=== PATIENT | female | born 1955 | race Caucasian/White ===

== ENCOUNTER 2017-06-26 21:16 | Emergency (ER) | payer OTHER ==
[2017-06-26 21:46] LABS: Bilirubin Negative (Negative); Blood, Urine Small (Negative); Glucose, Urine (Dipstick) 250 mg/dL (Negative); Ketone, Urine Negative (Negative); Nitrite Negative (Negative); Protein, Urine (Dipstick) 300 mg/dL (Neg-Trace); Urobilinogen 0.2 mg/dL (0.2-1.0)
[2017-06-26 21:48] LABS: Bacteria/HPF None Seen HPF (None Seen); Hyaline Casts/LPF 0-3 HYALINE CAST LPF (0-3 Hyaline); Squamous Epithelial 0-3 HPF (0-3); WBC/HPF 0-3 HPF (0-3)
[2017-06-26 21:54] LABS: #Basophils 0.1 thou/uL (0.0-0.2); #Eosinphils 0.3 thou/uL (0.0-0.7); #Lymphocytes 2.2 thou/uL (1.20-3.40); #Monocytes 0.4 thou/uL (0.11-0.59); %Basophils 1.2 % (0.0-1.0); %Eosinophils 4.3 % (0.0-10.0); %Lymphocytes 31.3 % (21.0-51.0); %Monocytes 6.3 % (0.0-10.0); Hematocrit 30.6 % (36.0-47.0); Mean Platelet Volume 7.1 fL (7.4-10.4); Red Blood Cell (RBC) Count 3.44 mill/uL (4.20-5.40); White Blood Cell (WBC) Count 7.1 thou/uL (4.8-10.8)
[2017-06-26 22:21] LABS: ALT (SGPT) 10 U/L (8-55); AST (SGOT) 11 U/L (5-34); Alkaline Phosphatase 77 U/L (40-150); Anion Gap 12 mmol/L (10-20); BUN (Urea Nitrogen) 55 mg/dL (9.8-20.1); Bilirubin, Total Less than 0.2 mg/dL (0.2-1.2); Calc. Creatinine Clearance 0 mL/min (70-130); Calcium 8.4 mg/dL (7.8-10.44); Carbon Dioxide 20 mmol/L (23-31); Chloride 111 mmol/L (98-107); Estimated GFR-MDRD 25; Globulin 3.3 g/dL (2.4-3.5); Lipase 57 U/L (8-78); Protein, Total 5.7 g/dL (6.0-8.3)
--- NOTE | 2017-06-26 23:12 | RAD ---
PORTABLE CHEST ONE VIEW: 06/26/17 at 10:29 p.m. HISTORY: Right lower abdominal pain, bilateral lower extremity redness, swelling and history of cellulitis. COMPARISON: Comparison made with exam of 04/18/17. The heart size is normal. The lungs are well expanded without focal areas of consolidation, pneumoth orax or pleural effusions. Postop changes in the right humerus are again seen. IMPRESSION: No acute process. POS: [facility]
== END 2017-06-27 01:04 | disposition home or self-care (01) ==
LOC: ERS 21:16
DX: I13.0 Hypertensive heart and chronic kidney disease with heart failure and stage 1 through stage 4 chronic kidney disease, or unspecified chronic kidney disease (principal); E11.22 Type 2 diabetes mellitus with diabetic chronic kidney disease; N18.2 Chronic kidney disease, stage 2 (mild); I50.9 Heart failure, unspecified; E78.5 Hyperlipidemia, unspecified; Z79.4 Long term (current) use of insulin
CPT/HCPCS: 36415; 71010; 80053; 81003; 81015; 83690; 83880; 85025; 93005

== ENCOUNTER 2017-07-24 18:11 | Inpatient (IN) | payer OTHER ==
[2017-07-24] MEDS ORDERED: hydrALAZINE 20 MG/ML VIAL ONE ×2 (19:05→22:21)
[2017-07-24] MEDS ORDERED: methylPREDNISolone Sod Succ/PF 125 MG/2 ML VIAL ONE (19:05)
[2017-07-24] MEDS ORDERED: Water For Inject, Bacteriostat 30 ML ONE (19:06)
[2017-07-24] MEDS ORDERED: Piperacillin/Tazobactam 3.375 GM in Sodium Chloride 0.9% 100 ML IVPB ONE (19:15)
--- NOTE | 2017-07-24 19:22 | RAD ---
CHEST ONE VIEW 07/24/17 HISTORY: Chest pain. COMPARISON: 07/13/17 FINDINGS: The cardiac silhouette is magnified by projection. Pulmonary vasculature is unremarkable. Mild atelec tasis is evident at each lung base. There is no lobar consolidation or evidence of pneumothorax. Card iac monitor leads overlie the chest. IMPRESSION: Chronic type findings are stable. No active cardiopulmonary abnormalties are demonstrated. POS: [facility]
[2017-07-24 20:00] LABS: Bilirubin Negative (Negative); Blood, Urine Moderate (Negative); Glucose, Urine (Dipstick) >=1000 mg/dL (Negative); Ketone, Urine Negative (Negative); Nitrite Negative (Negative); Protein, Urine (Dipstick) > or equal to 300 mg/dL (Neg-Trace); Urobilinogen 0.2 mg/dL (0.2-1.0)
[2017-07-24 20:02] LABS: Bacteria/HPF None Seen HPF (None Seen); WBC/HPF 0-3 HPF (0-3)
[2017-07-24 20:12] LABS: #Basophils 0.1 thou/uL (0.0-0.2); #Eosinphils 0.2 thou/uL (0.0-0.7); #Lymphocytes 2.8 thou/uL (1.20-3.40); #Monocytes 0.5 thou/uL (0.11-0.59); #Neutrophils 10.5 thou/uL (1.40-6.50); %Basophils 0.6 % (0.0-1.0); %Eosinophils 1.3 % (0.0-10.0); %Monocytes 3.7 % (0.0-10.0); Hematocrit 30.1 % (36.0-47.0); Mean Platelet Volume 6.8 fL (7.4-10.4); Red Blood Cell (RBC) Count 3.33 mill/uL (4.20-5.40); White Blood Cell (WBC) Count 14.1 thou/uL (4.8-10.8)
[2017-07-24 20:13] LABS: Hyaline Casts/LPF 0-3 HYALINE CAST LPF (0-3 Hyaline)
[2017-07-24 20:28] LABS: Lactic Acid - Sepsis 0.9 mmol/L (0.5-2.2)
[2017-07-24 20:31] LABS: ALT (SGPT) 8 U/L (8-55); AST (SGOT) 11 U/L (5-34); Alkaline Phosphatase 94 U/L (40-150); Anion Gap 15 mmol/L (10-20); BUN (Urea Nitrogen) 35 mg/dL (9.8-20.1); Bilirubin, Total Less than 0.2 mg/dL (0.2-1.2); CK (CPK) 113 U/L (29-168); Calc. Creatinine Clearance 0 mL/min (70-130); Calcium 8.3 mg/dL (7.8-10.44); Carbon Dioxide 18 mmol/L (23-31); Chloride 109 mmol/L (98-107); Estimated GFR-MDRD 19; Globulin 3.3 g/dL (2.4-3.5); Lipase Less than 4 U/L (8-78); Protein, Total 5.7 g/dL (6.0-8.3)
[2017-07-24 20:45] LABS: Troponin I 0.019 ng/mL (< 0.028)
--- NOTE | 2017-07-24 23:38 | PDOC.EVN ---
Event Note - Event Note Event Note: Patient seen and examined. dictation note to follow
[2017-07-24 23:46] LABS: Troponin I 0.022 ng/mL (< 0.028)
[2017-07-25] MEDS ORDERED: Sodium Chloride 0.65% Nasal 44 ML BOT EA NARE PRN (00:03)
[2017-07-25] MEDS ORDERED: Ondansetron HCl/PF 4 MG/2 ML Vial IVP PRN (00:03)
[2017-07-25] MEDS ORDERED: Labetalol HCl 100 MG/20 ML VIAL SLOW IVP PRN (00:03)
[2017-07-25] MEDS ORDERED: Mag-Al 1200 mg/1200 mg/30 ML UDCUP PO PRN (00:03)
[2017-07-25] MEDS ORDERED: Loperamide HCl 2 MG CAP PO PRN (00:03)
[2017-07-25] MEDS ORDERED: cloNIDine 0.1 MG TAB PO PRN (00:03)
[2017-07-25] MEDS ORDERED: Benzonatate 100 MG CAP PO PRN (00:03)
[2017-07-25] MEDS ORDERED: Zolpidem Tartrate 5 MG TAB PO PRN (00:03)
[2017-07-25] MEDS ORDERED: Diabetic Tussin 200 MG/10 ML UDCUP PO PRN (00:03)
[2017-07-25] MEDS ORDERED: Milk Of Magnesia 30 ML UDCUP PO PRN (00:03)
[2017-07-25] MEDS ORDERED: hydrALAZINE 20 MG/ML VIAL SLOW IVP PRN (00:03)
[2017-07-25] MEDS ORDERED: Artificial Tears 18 DROP/0.9 ML EA EYE PRN (00:03)
[2017-07-25] MEDS ORDERED: Dextrose 5% in Water 1,000 ML IV PRN (00:03)
[2017-07-25] MEDS ORDERED: Loratadine 10 MG TAB PO PRN (00:03)
[2017-07-25] MEDS ORDERED: HumaLOG 300 UNITS/3 ML VIAL SC PRN (00:03)
[2017-07-25] MEDS ORDERED: Eucerin (Mineral Oil/Petrolatum,White) 30 gm Jar TOP PRN (00:03)
[2017-07-25] MEDS ORDERED: Acetaminophen 325 MG TAB PO PRN (00:03)
[2017-07-25] MEDS ORDERED: Ondansetron ODT 4 MG TAB PO PRN (00:03)
[2017-07-25] MEDS ORDERED: Senokot 8.6 MG TAB PO PRN (00:03)
[2017-07-25] MEDS ORDERED: Chloraseptic Spray 180 ml Bottle PO PRN (00:03)
[2017-07-25] MEDS: cefTRIAXone\\ROCEPHIN 1 GM in Syringe 10 ML IVPB SCH (00:30)
[2017-07-25] MEDS: Levofloxacin/D5W 250 MG in Premix Bag 1 BAG IVPB SCH (00:30)
--- NOTE | 2017-07-25 01:02 | HP ---
PRIMARY CARE PHYSICIAN: [facility]. DATE OF SERVICE: 07/24/2017 REASON FOR ADMISSION: Generalized weakness, hypertensive urgency, leukocytosis. HISTORY OF PRESENT ILLNESS: A 61-year-old female who has underlying history of hypertension, diabetes type 2, diabetic nephropathy, and chronic kidney disease stage 4, who came to emergency room with complaint of generalized weakness. Patient was feeling low grade fever at home. She was having headache, body ache , myalgia, cough, sore throat, chest congestion. She was also having difficulty controlling blood pressure at home. She denies any associated nausea , vomiting, diarrhea. She was not feeling good overall and she was getting overall weak and that is why family member brought her to the emergency room. She denies any cough productive of yellowish sputum. She has only a dry cough. She denies any hemoptysis. She denies any shortness of breath. She denies any urinary tract infection symptoms. She denies any constipation, diarrhea, melena, or hematochezia. She denies any lower extremity edema. Family member reports that her edema was worse before, but now improved. When the patient presented to emergency room, she was hypertensive. She was having low grade fever. Her blood pressure on admission 222/107. Patient was given antihypertensive medication apparently in the emergency room after that blood pressure improved. ALLERGIES: VANCOMYCIN. CURRENT HOME MEDICATIONS: Amlodipine 10 mg p.o. daily, aspirin 81 mg daily, Lipitor 40 mg p.o. daily, Coreg 6.25 mg p.o. b.i.d., ferrous sulfate 325 mg p.o. t.i.d., Lasix 40 mg p.o. b.i.d., gabapentin 200 mg p.o. at bedtime, War 1 or 2 tablets q.4 hourly p.r.n., Levemir insulin 21 units subcu a.m. and 15 units at bedtime, Zaroxolyn 5 mg p.o. every other day, ropinirole 1 mg p.o. at bedtime p.r.n. REVIEW OF SYSTEMS: The following complete review of systems was negative, unless otherwise mentioned in the HPI or below: CONSTITUTIONAL: Weight loss or gain, ability to conduct usual activities. SKIN: Rash, itching. EYES: Double vision, pain. ENT/MOUTH: Nose bleeding, neck stiffness, pain, tenderness. CARDIOVASCULAR: Palpitations, dyspnea on exertion, orthopnea. RESPIRATORY: Shortness of breath, wheezing, cough, hemoptysis, fever or night sweats. GASTROINTESTINAL: Poor appetite, abdominal pain, heartburn, nausea, vomiting, constipation, or diarrhea. GENITOURINARY: Urgency, frequency, dysuria, nocturia. MUSCULOSKELETAL: Pain, swelling. NEUROLOGIC/PSYCHIATRIC: Anxiety, depression. ALLERGY/IMMUNOLOGIC: Skin rash, bleeding tendency. Please see my HPI for pertinent positive and negative. All other review of systems reviewed and negative except as mentioned in the HPI. PAST MEDICAL HISTORY: Diabetes type 2, insulin-dependent diabetic, nephropathy , chronic kidney disease stage 4, hypertension, dyslipidemia, restless leg syndrome, morbid obesity, anemia, normocytic, normochromic, moderate tricuspid regurgitation, chronic diastolic heart failure. PAST SURGICAL HISTORY: Right shoulder surgery, left total knee arthroplasty, ovarian cyst removal. PAST PSYCHIATRIC HISTORY: Reviewed and negative. SOCIAL HISTORY: Patient lives at home with her daughter. No history of tobacco , alcohol or illicit drug abuse. FAMILY HISTORY: Diabetes runs among several family members. Mom from lung cancer by age of 75. Father from mesothelioma by age of 62. EMERGENCY ROOM COURSE: Patient is given Zosyn 3.375 mg. Patient is given hydralazine, Solu-Medrol 125 mg, DuoNeb therapy. PHYSICAL EXAMINATION: VITAL SIGNS: On arrival, blood pressure 222/107, pulse 92, respiratory rate 20 , temperature 99.7, saturation 97% on room air, weight 81.1 kilograms. GENERAL: Patient is currently alert, awake, no obvious acute distress. HEENT: Normocephalic, atraumatic. Eyes: Pupils round, reactive to light. Extraocular muscles intact. ENT: Oropharynx within normal limits. Moist mucous membranes. No oral lesions. No pharyngeal erythema, no exudate. No lymph nodes. NECK: Supple. Range of motion is normal. No meningeal signs of irritation. LUNGS: Few end expiratory wheezing heard. No rales. CARDIAC: S1, S2 regular. No murmur, no gallop, no rub. ABDOMEN: Obesity. Bowel sounds present, nontender, nondistended. No organomegaly, no mass, no suprapubic tenderness. BACK: Unremarkable, no CVA tenderness. EXTREMITIES: Upper extremity: Passive movement of all joints are normal. Lower extremities: Bilateral lower extremity pitting edema noted. Chronic venous stasis changes. SKIN: No skin rash. HEMATOLOGICAL: No lymphadenopathy. PSYCHIATRIC: Normal affect. NEUROLOGIC: Nonfocal examination. SIGNIFICANT LABORATORY DATA: EKG based on my review normal sinus rhythm, nonspecific ST-T changes. Chest x-ray based on my review, chronic changes without any acute process. CBC: WBC 14.1, hemoglobin 10.0, platelets 378. BMP : Sodium 137, potassium 4.5, chloride 109, carbon dioxide 18, BUN 35, creatinine 2.58, glucose 270, calcium 8.3. Lactic acid 0.9, AST 11, ALT 8, alkaline phosphatase 94, albumin 2.4, lipase less than 4, CK-MB 4.9, troponin I 0.019. CK 113. Urinalysis; glucosuria and proteinuria. ASSESSMENT AND PLAN: IMPRESSION: 1. Generalized weakness and suspecting viral prodrome syndrome. Patient will need consultation with walking program while in hospital. We will check influenza screen, which is negative. 2. Acute bronchitis. Patient has cough, sore throat, upper respiratory infection, most likely patient has underlying viral bronchitis underlying bacterial infection cannot be entirely excluded. 3. Hypertensive urgency, currently improved after parenteral IV hydralazine in the emergency room. We will monitor on telemetry floor. We will rule out acute coronary syndrome and do serial cardiac enzymes. We will continue with nitro patch q.8 hourly and will resume patient's blood pressure medication while in hospital. 4. Leukocytosis, unclear etiology, for suspecting from viral infection, underlying bacterial infection cannot be entirely excluded. We will send urine culture and will follow up on blood culture result and will continue with Rocephin 1 gram q.24 hours. We will also add levofloxacin 250 mg IV daily. We will repeat CBC tomorrow. 5. Chronic kidney disease stage 4. Monitor renal function. Avoid nephrotoxic agents. 6. Diabetes type 2, uncontrolled. We will resume patient's home medication and we will titrate insulin dose while in hospital and we will also consider Humalog insulin as per sliding scale. 7. Anemia, normocytic, normochromic. Continue ferrous sulfate 325 mg p.o. daily. 8. Dyslipidemia. Continue patient's home dose of Lipitor. Moderate tricuspid regurgitation based on previous echocardiography. 9. Edema, bilateral lower extremities, likely due to hypoalbuminemia secondary to diabetic nephropathy. We will monitor deep venous thrombosis prophylaxis, heparin 5000 units subcu twice daily. 10. Gastrointestinal prophylaxis. Pepcid 20 mg p.o. daily. CODE STATUS: The patient is FULL CODE. Patient's daughter is surrogate decision maker. Her phone number is [phone]. Plan of care discussed with the family member at bedside in the emergency room. [facility]
[2017-07-25 01:34] VITALS: BMI 36.9
[2017-07-25 01:59] LABS: #Lymphocytes 0.4 thou/uL (1.20-3.40); %Basophils 0.2 % (0.0-1.0); %Eosinophils 0.2 % (0.0-10.0); %Lymphocytes 3.1 % (21.0-51.0); %Monocytes 0.3 % (0.0-10.0); Hematocrit 25.8 % (36.0-47.0); Mean Platelet Volume 7.1 fL (7.4-10.4); Red Blood Cell (RBC) Count 2.84 mill/uL (4.20-5.40); White Blood Cell (WBC) Count 12.5 thou/uL (4.8-10.8)
[2017-07-25 02:23] LABS: Troponin I 0.036 ng/mL (< 0.028)
[2017-07-25 02:29] LABS: ALT (SGPT) 8 U/L (8-55); AST (SGOT) 11 U/L (5-34); Alkaline Phosphatase 86 U/L (40-150); Anion Gap 15 mmol/L (10-20); BUN (Urea Nitrogen) 41 mg/dL (9.8-20.1); Bilirubin, Total Less than 0.2 mg/dL (0.2-1.2); Calc. Creatinine Clearance 28 mL/min (70-130); Calcium 7.8 mg/dL (7.8-10.44); Carbon Dioxide 15 mmol/L (23-31); Chloride 107 mmol/L (98-107); Estimated GFR-MDRD 17; Globulin 3.1 g/dL (2.4-3.5); Protein, Total 5.2 g/dL (6.0-8.3)
[2017-07-25] MEDS ORDERED: rOPINIRole HCl 1 MG TAB PO PRN (02:50)
[2017-07-25] MEDS ORDERED: Insulin Detemir 100 UNITS/ML 15 UNITS in Pre-Filled Syringe 1 EACH SC SCH (03:00)
[2017-07-25] MEDS: HumaLOG 300 UNITS/3 ML VIAL SC PRN ×3 (03:01→09:50)
[2017-07-25] MEDS: Nitroglycerin 2% Ointment 1 INCH/1 GM Packet TOP SCH ×3 (03:05→21:43)
[2017-07-25] MEDS ORDERED: Insulin Detemir 100 UNITS/ML 21 UNITS in Pre-Filled Syringe 1 EACH SC SCH (09:00)
[2017-07-25] MEDS: Carvedilol 6.25 MG TAB PO SCH ×2 (09:17→20:39)
[2017-07-25] MEDS: Atorvastatin Calcium 40 MG TAB PO SCH (09:17)
[2017-07-25] MEDS: Amlodipine 10 MG TAB PO SCH (09:17)
[2017-07-25] MEDS: Aspirin 81 mg Enteric Coated Tablet PO SCH (09:17)
[2017-07-25] MEDS: Heparin 5,000 UNITS/ML VIAL SC SCH ×2 (09:18→20:39)
[2017-07-25] MEDS: Famotidine 20 MG TAB PO SCH (09:18)
--- NOTE | 2017-07-25 11:10 | PDOC.PN ---
- Subjective Encounter Start Date: 07/25/17 Encounter Start Time: 07:30 Subjective: no sob/chest pain - Objective Resuscitation Status: Resuscitation Status FULL:Full Resuscitation MAR Reviewed: Yes Vital Signs & Weight: Vital Signs (12 hours) Temp Pulse Resp BP BP Pulse Ox 07/25/17 09:17 97 147/74 H 07/25/17 07:43 98.6 F 97 16 07/25/17 07:41 99 F 90 22 H 147/74 H 97 07/25/17 05:05 97 16 127/65 95 07/25/17 03:05 98.6 F 107 H 18 187/76 H 95 07/24/17 23:40 98.6 F 111 H 20 140/82 96 Weight Weight 183 lb 1.6 oz I&O: 07/24/17 07/25/17 07/26/17 06:59 06:59 06:59 Intake Total 1130 Output Total 600 Balance 530 Result Diagrams: 07/25/17 01:52 07/25/17 01:52 Additional Labs: Accuchecks 07/25/17 07/25/17 07/25/17 08:38 05:57 02:46 POC Glucose 415 H 475 H 504 H Phys Exam - Physical Examination HEENT: PERRLA, moist MMs Neck: no JVD, supple Respiratory: no wheezing, no rales Cardiovascular: RRR, no significant murmur Gastrointestinal: soft, no distention, positive bowel sounds Musculoskeletal: pulses present, edema present Neurological: non-focal, moves all 4 limbs Psychiatric: A&O x 3 Dx/Plan (1) DM type 2 (diabetes mellitus, type 2) Status: Chronic Qualifiers: Diabetes mellitus complication status: with hyperglycemia 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 use: with dedicated intermodal truck driver use Qualified Code(s): E11.65 - Type 2 diabetes mellitus with hyperglycemia; Z79.4 - rat exterminator (current) use of insulin; Z79.4 - rat exterminator (current) use of insulin; Z79.4 - intermediate ( current) use of insulin; Z79.4 - rat exterminator (current) use of insulin Comment: serum sugar of 500mg on arrival (2) HTN (hypertension) Code(s): I10 - ESSENTIAL (PRIMARY) HYPERTENSION Status: Chronic Comment: uncontrolled (3) Hypoalbuminemia Code(s): E88.09 - OTH DISORDERS OF PLASMA-PROTEIN METABOLISM, NEC Status: Chronic Comment: due to renal wasting from ckd and diabetic nephropathy (4) ROD (acute kidney injury) Code(s): N17.9 - ACUTE KIDNEY FAILURE, UNSPECIFIED Status: Acute Comment: Watch renal function, avoid nephrotoxic meds (5) CKD (chronic kidney disease) stage 3, GFR 30-59 ml/min Status: Chronic (6) Chronic anemia Code(s): D64.9 - ANEMIA, UNSPECIFIED Status: Chronic Comment: sec to ckd (7) Dyslipidemia Code(s): E78.5 - HYPERLIPIDEMIA, UNSPECIFIED Status: Chronic (8) URI (upper respiratory infection) Code(s): J06.9 - ACUTE UPPER RESPIRATORY INFECTION, UNSPECIFIED Status: Acute Qualifiers: URI type: unspecified URI Qualified Code(s): J06.9 - Acute upper respiratory infection, unspecified - Plan has multiple med issues with uncontrolled dm and htn -: has met acidosis with ckd and edema -: bnp levels, likely vol overloaded -: d/w -: is on levaq and ceftriaxone, will need atleast another 30hrs to get her dm * . and htn under control. Please note pt has rod with ckd and will have unpredictable renal clearance of meds as well. Has outpt appt with set up for friday. give 15 units of levemir one additional dose now. continue lasix iv. Mobilize in hallway as tolerated. Review of Systems - Medications/Allergies Allergies/Adverse Reactions: Allergies Allergy/AdvReac Type Severity Reaction Status Date / Time No Known Allergies Allergy Verified 07/25/17 00:19 Medications: Current Medications Acetaminophen (Tylenol) 650 mg PO Q4H PRN PRN Reason: Headache/Fever or Pain Hydrocodone Bitart/Acetaminophen ([place] 5/325) 1 tab PO Q4H PRN PRN Reason: Moderate Pain (4-6) Al Hydroxide/Mg Hydroxide (Maalox) 30 ml PO Q6H PRN PRN Reason: Heartburn or Indigestion Albuterol/Ipratropium (Duoneb) 3 ml NEB [id number] PRN PRN Reason: SOB &/or Wheezing Amlodipine Besylate (Norvasc) 10 mg PO DAILY [facility] Last Admin: 07/25/17 09:17 Dose: 10 mg Artificial Tears (Tears Naturale) 0 drop EA EYE PRN PRN PRN Reason: Dry Eyes Aspirin (Ecotrin) 81 mg PO DAILY [facility] Last Admin: 07/25/17 09:17 Dose: 81 mg Atorvastatin Calcium (Lipitor) 40 mg PO DAILY [facility] Last Admin: 07/25/17 09:17 Dose: 40 mg Benzonatate (Tessalon) 100 mg PO Q4H PRN PRN Reason: Cough Carvedilol (Coreg) 6.25 mg PO BID [facility] Last Admin: 07/25/17 09:17 Dose: 6.25 mg Clonidine (Catapres) 0.1 mg PO Q4H PRN PRN Reason: Systolic BP > 180 Last Admin: 07/25/17 03:03 Dose: 0.1 mg Dextrose/Water (Dextrose 50%) 25 gm SLOW IVP PRN PRN PRN Reason: Hypoglycemia Famotidine (Pepcid) 20 mg PO DAILY [facility] Last Admin: 07/25/17 09:18 Dose: 20 mg Gabapentin (Neurontin) 200 mg PO [facility] Glucagon (Glucagon) 1 mg IM PRN PRN PRN Reason: Hypoglycemia Guaifenesin (Robitussin Sf) 200 mg PO Q4H PRN PRN Reason: Cough Heparin Sodium (Porcine) (Heparin) 5,000 units SC BID [facility] Last Admin: 07/25/17 09:18 Dose: 5,000 units Hydralazine HCl (Apresoline) 10 mg SLOW IVP Q4H PRN PRN Reason: Systolic BP > 180 Ceftriaxone Sodium 1 gm/ (Syringe) 10 mls @ 120 mls/hr IVPB Q24HR [facility] Last Admin: 07/25/17 00:30 Dose: 10 mls Dextrose/Water (D5w) 1,000 mls @ 0 mls/hr IV .Q0M PRN; As Directed PRN Reason: Hypoglycemia Levofloxacin 250 mg/ Device 50 mls @ 100 mls/hr IVPB Q24HR [facility] Last Admin: 07/25/17 00:30 Dose: 50 mls Insulin Detemir 15 units/ (Miscellaneous Medication) 0.15 mls @ 0 mls/hr SC HS [facility] Insulin Detemir 21 units/ (Miscellaneous Medication) 0.21 mls @ 0 mls/hr SC QAM [facility] Last Admin: 07/25/17 09:18 Dose: 0.21 mls Insulin Detemir 15 units/ (Miscellaneous Medication) 0.15 mls @ 0 mls/hr SC NOW [facility] Stop: 07/25/17 13:15 Influenza Virus Vaccine (Fluzone Quad [id number] Syringe) 0.5 ml IM .ONCE ONE Stop: 07/26/17 09:01 Insulin Human Lispro (Humalog) 0 units SC .MODERATE SLIDING SC PRN PRN Reason: Moderate Correctional Scale Last Admin: 07/25/17 09:50 Dose: 10 unit Insulin Human Lispro (Humalog) 0 units SC .BEDTIME SLIDING SC PRN PRN Reason: Bedtime Correctional Scale Labetalol HCl (Normodyne) 20 mg SLOW IVP Q4H PRN PRN Reason: Systolic BP > 180 Loperamide HCl (Imodium) 2 mg PO PRN PRN PRN Reason: Diarrhea/Loose Stools Loratadine (Claritin) 10 mg PO DAILYPRN PRN PRN Reason: Sinus Symptoms Magnesium Hydroxide (Milk Of Magnesium) 30 ml PO DAILYPRN PRN PRN Reason: Constipation Mineral Oil/White Petrolatum (Eucerin Cream) 0 gm TOP BIDPRN PRN PRN Reason: Dry Skin Nitroglycerin (Nitro-Bid 2% Ointment) 0.5 inch TOP Q8HR [facility] Last Admin: 07/25/17 03:05 Dose: 0.5 inch Ondansetron HCl (Zofran Odt) 4 mg PO Q6H PRN PRN Reason: Nausea/Vomiting Ondansetron HCl (Zofran) 4 mg IVP Q6H PRN PRN Reason: Nausea/Vomiting Phenol (Chloraseptic [place] 180 Ml Bot) 0 ml PO PRN PRN PRN Reason: Sore Throat Ropinirole HCl (Requip) 1 mg PO HSPRN PRN PRN Reason: Restlessness Senna (Senokot) 2 tab PO HSPRN PRN PRN Reason: Constipation Sodium Chloride ([place] Nasal [place] 0.65%) 0 ml EA NARE QIDPRN PRN PRN Reason: Nasal Congestion Sodium Chloride (Flush - Normal Saline) 10 ml IVF Q12HR [facility] Last Admin: 07/25/17 09:19 Dose: 10 ml Sodium Chloride (Flush - Normal Saline) 10 ml IVF PRN PRN PRN Reason: Saline Flush Last Admin: 07/25/17 00:30 Dose: 10 ml Zolpidem Tartrate (Ambien) 5 mg PO HSPRN PRN PRN Reason: Insomnia
[2017-07-25] MEDS ORDERED: Insulin Detemir 100 UNITS/ML 15 UNITS in Pre-Filled Syringe SC SCH (11:15)
[2017-07-25] MEDS: Furosemide 100 MG/10 ML VIAL SLOW IVP SCH (14:25)
[2017-07-25] MEDS: Gabapentin 100 MG CAP PO SCH (20:38)
[2017-07-25] MEDS: Insulin Detemir 100 UNITS/ML 15 UNITS in Pre-Filled Syringe 1 EACH SC SCH ×2 (20:41→21:07)
[2017-07-25] MEDS: Dextrose 50% Abboject 50 ML SYRINGE SLOW IVP PRN (21:01)
[2017-07-26] MEDS: Dextrose 50% Abboject 50 ML SYRINGE SLOW IVP PRN (00:54)
[2017-07-26] MEDS: cefTRIAXone\\ROCEPHIN 1 GM in Syringe 10 ML IVPB SCH (00:58)
[2017-07-26] MEDS: Levofloxacin/D5W 250 MG in Premix Bag 1 BAG IVPB SCH (01:10)
[2017-07-26] MEDS: HYDROcodone/Acetaminophen 5/325 mg Tablet PO PRN ×3 (02:58→23:17)
[2017-07-26] MEDS: Furosemide 100 MG/10 ML VIAL SLOW IVP SCH ×2 (05:53→13:42)
[2017-07-26] MEDS: Nitroglycerin 2% Ointment 1 INCH/1 GM Packet TOP SCH ×3 (05:55→21:00)
[2017-07-26 07:50] LABS: #Eosinphils 0.2 thou/uL (0.0-0.7); #Monocytes 0.6 thou/uL (0.11-0.59); #Neutrophils 8.2 thou/uL (1.40-6.50); %Basophils 0.4 % (0.0-1.0); %Eosinophils 1.6 % (0.0-10.0); %Lymphocytes 9.7 % (21.0-51.0); %Monocytes 5.9 % (0.0-10.0); Hematocrit 29.1 % (36.0-47.0); Mean Platelet Volume 6.7 fL (7.4-10.4); Red Blood Cell (RBC) Count 3.22 mill/uL (4.20-5.40); White Blood Cell (WBC) Count 9.9 thou/uL (4.8-10.8)
[2017-07-26 08:17] LABS: Anion Gap 14 mmol/L (10-20); BUN (Urea Nitrogen) 49 mg/dL (9.8-20.1); Calc. Creatinine Clearance 28 mL/min (70-130); Calcium 8.2 mg/dL (7.8-10.44); Carbon Dioxide 20 mmol/L (23-31); Chloride 106 mmol/L (98-107); Estimated GFR-MDRD 18
[2017-07-26] MEDS ORDERED: FLU VACC QS2017-18 36 mo. & older 0.5 ML SYRINGE IM ONE (09:00)
[2017-07-26] MEDS: Aspirin 81 mg Enteric Coated Tablet PO SCH (09:29)
[2017-07-26] MEDS: Carvedilol 6.25 MG TAB PO SCH ×2 (09:29→20:58)
[2017-07-26] MEDS: Atorvastatin Calcium 40 MG TAB PO SCH (09:29)
[2017-07-26] MEDS: cloNIDine 0.1 MG TAB PO SCH ×2 (09:29→21:00)
[2017-07-26] MEDS: Famotidine 20 MG TAB PO SCH (09:29)
[2017-07-26] MEDS: Amlodipine 10 MG TAB PO SCH (09:29)
[2017-07-26] MEDS: hydrALAZINE 25 MG TAB PO SCH ×2 (09:30→20:59)
[2017-07-26] MEDS: Heparin 5,000 UNITS/ML VIAL SC SCH ×2 (09:30→20:59)
--- NOTE | 2017-07-26 11:52 | PDOC.PN ---
- Subjective Encounter Start Date: 07/26/17 Encounter Start Time: 07:15 Subjective: feels weak, no sob -: is trying to eat her breakfast - Objective Resuscitation Status: Resuscitation Status FULL:Full Resuscitation MAR Reviewed: Yes Vital Signs & Weight: Vital Signs (12 hours) Temp Pulse Resp BP BP Pulse Ox 07/26/17 09:30 87 07/26/17 09:29 97.8 F 87 18 192/84 H 95 07/26/17 09:24 97.8 F 87 18 192/84 H 95 07/26/17 04:00 98.3 F 83 18 166/71 H 97 07/26/17 01:08 82 28 H 172/77 H 95 Weight Weight 183 lb 1.6 oz I&O: 07/25/17 07/26/17 07/27/17 06:59 06:59 06:59 Intake Total 1130 840 Output Total 600 1725 Balance 530 -755 Result Diagrams: 07/26/17 07:40 07/26/17 07:40 Additional Labs: Accuchecks 07/26/17 07/26/17 07/26/17 11:11 06:19 04:26 POC Glucose 150 H 92 105 07/26/17 07/26/17 07/26/17 02:51 01:15 00:49 POC Glucose 104 136 H 56 L* 07/25/17 07/25/17 07/25/17 21:13 20:58 17:37 POC Glucose 145 H 49 L* 75 07/25/17 16:41 POC Glucose 61 L Phys Exam - Physical Examination HEENT: PERRLA, moist MMs Neck: no JVD, supple Respiratory: no wheezing, no rales Cardiovascular: RRR, no significant murmur Gastrointestinal: soft, non-tender, positive bowel sounds Musculoskeletal: pulses present, edema present Neurological: non-focal, moves all 4 limbs Psychiatric: A&O x 3 Dx/Plan (1) DM type 2 (diabetes mellitus, type 2) Status: Chronic Qualifiers: Diabetes mellitus complication status: with hyperglycemia 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 marine terminal insulin use: with laborer marine terminal use Qualified Code(s): E11.65 - Type 2 diabetes mellitus with hyperglycemia; Z79.4 - detention (current) use of insulin; Z79.4 - petroleum terminal plant operator (current) use of insulin; Z79.4 - petroleum terminal plant operator ( current) use of insulin; Z79.4 - petroleum terminal plant operator (current) use of insulin Comment: serum sugar of 500mg on arrival (2) HTN (hypertension) Code(s): I10 - ESSENTIAL (PRIMARY) HYPERTENSION Status: Chronic Comment: uncontrolled (3) Hypoalbuminemia Code(s): E88.09 - OTH DISORDERS OF PLASMA-PROTEIN METABOLISM, NEC Status: Chronic Comment: due to renal wasting from ckd and diabetic nephropathy (4) ROD (acute kidney injury) Code(s): N17.9 - ACUTE KIDNEY FAILURE, UNSPECIFIED Status: Acute Comment: Watch renal function, avoid nephrotoxic meds (5) CKD (chronic kidney disease) stage 3, GFR 30-59 ml/min Status: Chronic (6) Chronic anemia Code(s): D64.9 - ANEMIA, UNSPECIFIED Status: Chronic Comment: sec to ckd (7) Dyslipidemia Code(s): E78.5 - HYPERLIPIDEMIA, UNSPECIFIED Status: Chronic (8) URI (upper respiratory infection) Code(s): J06.9 - ACUTE UPPER RESPIRATORY INFECTION, UNSPECIFIED Status: Acute Qualifiers: URI type: unspecified URI Qualified Code(s): J06.9 - Acute upper respiratory infection, unspecified - Plan diabetes is labile, hold levemir for this am -: add clonidine and hydralazine -: to amb in room as tolerated -: continue lasix 80 iv q12h -: will dc antibiotics in am if stable * . Review of Systems - Medications/Allergies Allergies/Adverse Reactions: Allergies Allergy/AdvReac Type Severity Reaction Status Date / Time No Known Allergies Allergy Verified 07/25/17 00:19 Medications: Current Medications Acetaminophen (Tylenol) 650 mg PO Q4H PRN PRN Reason: Headache/Fever or Pain Hydrocodone Bitart/Acetaminophen ([place] 5/325) 1 tab PO Q4H PRN PRN Reason: Moderate Pain (4-6) Last Admin: 07/26/17 02:58 Dose: 1 tab Al Hydroxide/Mg Hydroxide (Maalox) 30 ml PO Q6H PRN PRN Reason: Heartburn or Indigestion Albuterol/Ipratropium (Duoneb) 3 ml NEB [id number] PRN PRN Reason: SOB &/or Wheezing Last Admin: 07/25/17 22:00 Dose: 3 ml Amlodipine Besylate (Norvasc) 10 mg PO DAILY [facility] Last Admin: 07/26/17 09:29 Dose: 10 mg Artificial Tears (Tears Naturale) 0 drop EA EYE PRN PRN PRN Reason: Dry Eyes Aspirin (Ecotrin) 81 mg PO DAILY [facility] Last Admin: 07/26/17 09:29 Dose: 81 mg Atorvastatin Calcium (Lipitor) 40 mg PO DAILY [facility] Last Admin: 07/26/17 09:29 Dose: 40 mg Benzonatate (Tessalon) 100 mg PO Q4H PRN PRN Reason: Cough Carvedilol (Coreg) 6.25 mg PO BID [facility] Last Admin: 07/26/17 09:29 Dose: 6.25 mg Clonidine (Catapres) 0.1 mg PO Q4H PRN PRN Reason: Systolic BP > 180 Last Admin: 07/25/17 03:03 Dose: 0.1 mg Clonidine (Catapres) 0.1 mg PO BID [facility] Last Admin: 07/26/17 09:29 Dose: 0.1 mg Dextrose/Water (Dextrose 50%) 25 gm SLOW IVP PRN PRN PRN Reason: Hypoglycemia Last Admin: 07/26/17 00:54 Dose: 25 gm Famotidine (Pepcid) 20 mg PO DAILY [facility] Last Admin: 07/26/17 09:29 Dose: 20 mg Furosemide (Lasix) 80 mg SLOW IVP 0600,1400 [facility] Last Admin: 07/26/17 05:53 Dose: 80 mg Gabapentin (Neurontin) 200 mg PO HS [facility] Last Admin: 07/25/17 20:38 Dose: 200 mg Glucagon (Glucagon) 1 mg IM PRN PRN PRN Reason: Hypoglycemia Guaifenesin (Robitussin Sf) 200 mg PO Q4H PRN PRN Reason: Cough Last Admin: 07/26/17 02:58 Dose: 200 mg Heparin Sodium (Porcine) (Heparin) 5,000 units SC BID [facility] Last Admin: 07/26/17 09:30 Dose: 5,000 units Hydralazine HCl (Apresoline) 10 mg SLOW IVP Q4H PRN PRN Reason: Systolic BP > 180 Hydralazine HCl (Apresoline) 25 mg PO BID [facility] Last Admin: 07/26/17 09:30 Dose: 25 mg Ceftriaxone Sodium 1 gm/ (Syringe) 10 mls @ 120 mls/hr IVPB Q24HR [facility] Last Admin: 07/26/17 00:58 Dose: 10 mls Dextrose/Water (D5w) 1,000 mls @ 0 mls/hr IV .Q0M PRN; As Directed PRN Reason: Hypoglycemia Levofloxacin 250 mg/ Device 50 mls @ 100 mls/hr IVPB Q24HR [facility] Last Admin: 07/26/17 01:10 Dose: 50 mls Insulin Detemir 15 units/ (Miscellaneous Medication) 0.15 mls @ 0 mls/hr SC HS [facility] Last Admin: 07/25/17 21:07 Dose: Not Given Insulin Human Lispro (Humalog) 0 units SC .MODERATE SLIDING SC PRN PRN Reason: Moderate Correctional Scale Last Admin: 07/25/17 09:50 Dose: 10 unit Insulin Human Lispro (Humalog) 0 units SC .BEDTIME SLIDING SC PRN PRN Reason: Bedtime Correctional Scale Labetalol HCl (Normodyne) 20 mg SLOW IVP Q4H PRN PRN Reason: Systolic BP > 180 Loperamide HCl (Imodium) 2 mg PO PRN PRN PRN Reason: Diarrhea/Loose Stools Loratadine (Claritin) 10 mg PO DAILYPRN PRN PRN Reason: Sinus Symptoms Magnesium Hydroxide (Milk Of Magnesium) 30 ml PO DAILYPRN PRN PRN Reason: Constipation Mineral Oil/White Petrolatum (Eucerin Cream) 0 gm TOP BIDPRN PRN PRN Reason: Dry Skin Nitroglycerin (Nitro-Bid 2% Ointment) 0.5 inch TOP Q8HR [facility] Last Admin: 07/26/17 05:55 Dose: 0.5 inch Ondansetron HCl (Zofran Odt) 4 mg PO Q6H PRN PRN Reason: Nausea/Vomiting Ondansetron HCl (Zofran) 4 mg IVP Q6H PRN PRN Reason: Nausea/Vomiting Phenol (Chloraseptic [place] 180 Ml Bot) 0 ml PO PRN PRN PRN Reason: Sore Throat Ropinirole HCl (Requip) 1 mg PO HSPRN PRN PRN Reason: Restlessness Senna (Senokot) 2 tab PO HSPRN PRN PRN Reason: Constipation Sodium Chloride ([place] Nasal [place] 0.65%) 0 ml EA NARE QIDPRN PRN PRN Reason: Nasal Congestion Sodium Chloride (Flush - Normal Saline) 10 ml IVF Q12HR [facility] Last Admin: 07/26/17 09:30 Dose: 10 ml Sodium Chloride (Flush - Normal Saline) 10 ml IVF PRN PRN PRN Reason: Saline Flush Last Admin: 07/26/17 05:56 Dose: 10 ml Zolpidem Tartrate (Ambien) 5 mg PO HSPRN PRN PRN Reason: Insomnia
--- NOTE | 2017-07-26 12:48 | CON ---
DATE OF CONSULTATION: 07/25/2017 CONSULTING PHYSICIAN: Dr. Maggy Ordaz. REASON FOR CONSULTATION: Acute kidney injury and edema. REASON FOR ADMISSION: Generalized weakness. HISTORY OF PRESENT ILLNESS: This is a 61-year-old white female with history of hypertension, type 2 diabetes, chronic kidney disease, came to the hospital with weakness and has been evaluated. She hylton s have chronic kidney disease stage 4. Her creatinine was found to be 2.81 and Nephrology is consult ed. The patient complains of lot of swelling. She is not having a regular followup for blood sugar and blood pressure was elevated. No fever or chills. No nausea, vomiting, no diarrhea. PAST MEDICAL HISTORY: Positive for diabetes, hypertension, chronic kidney disease, iron deficiency a nemia, chronic pain, edema, hyperlipidemia, chronic diastolic heart failure. PAST SURGICAL HISTORY: Right shoulder surgery, left total knee replacement, ovarian cyst removal. HOME MEDICATIONS: Amlodipine, aspirin, Lipitor, Coreg, ferrous sulfate, Lasix, gabapentin, [place], Le vemir, Zaroxolyn and ropinirole. ALLERGIES: To VANCOMYCIN. SOCIAL HISTORY: No smoking, alcohol or illicit drug abuse. FAMILY HISTORY: No history of any kidney disease. REVIEW OF SYSTEMS: The following complete review of systems was negative, unless otherwise mentioned in the HPI or below: Constitutional: Weight loss or gain, ability to conduct usual activities. Skin: Rash, itching. Eyes: Double vision, pain. ENT/Mouth: Nose bleeding, neck stiffness, pain, tenderness. Cardiovascular: Palpitations, dyspnea on exertion, orthopnea. Respiratory: Shortness of breath, wheezing, cough, hemoptysis, fever or night sweats. Gastrointestinal: Poor appetite, abdominal pain, heartburn, nausea, vomiting, constipation, or diarr hea. Genitourinary: Urgency, frequency, dysuria, nocturia. Musculoskeletal: Pain, swelling. Neurologic/Psychiatric: Anxiety, depression. Allergy/Immunologic: Skin rash, bleeding tendency. PHYSICAL EXAMINATION: GENERAL: This is an obese female in no apparent distress. VITAL SIGNS: Temperature 97.8, pulse 87, respiratory rate 18, blood pressure 192/84. HEENT: Atraumatic, normocephalic. Oral mucosa is moist. NECK: Supple, no masses. CARDIOVASCULAR: S1, S2. Rate and rhythm regular. RESPIRATORY: Clear. GASTROINTESTINAL: Abdomen is soft. MUSCULOSKELETAL: 2+ edema. DERMATOLOGIC: No skin rash. NEUROLOGIC: Alert and awake. PSYCHIATRIC: Mood and affect normal. LABORATORY DATA: Hemoglobin is 9.6, potassium is 4.5, BUN is 49, creatinine is 2.7. ASSESSMENT AND PLAN: 1. Acute kidney injury on chronic kidney stage IV. Renal function is elevated, but she does have ed danielito. Plan is to have Lasix today, start on Lasix 80 mg IV b.i.d.. We will monitor. 2. Anemia of chronic disease. We will check iron studies. 3. Proteinuria with diabetic nephropathy. 4. Hypertension. Titrate medication. We will add Lasix for edema. 5. Anemia, stable. 6. Obesity. Plan is to start on Lasix. Monitor renal function, avoid nephrotoxins, hold ELIJAH inhibitor at this po int and continue antibiotics. We will follow. Thank you for the consultation.
--- NOTE | 2017-07-26 13:04 | PRG ---
DATE OF SERVICE: 07/26/2017 SUBJECTIVE: Patient was seen and examined at bedside and overnight events noted. Patient denies any shortness of breath or chest pain or palpitation. No history of nausea or vomiting or diarrhea or fever or chills or cramps. OBJECTIVE: GENERAL: This is an obese female in no apparent distress. VITAL SIGNS: Temperature 98.1, pulse 80, respirations 16, blood pressure 178/81. HEENT: Atraumatic, normocephalic. Oral mucosa is moist. NECK: Supple. CARDIOVASCULAR: S1, S2 heard. Rate and rhythm regular. RESPIRATORY: Clear to auscultation. GASTROINTESTINAL: Abdomen is soft. MUSCULOSKELETAL: No tenderness, no edema. DERMATOLOGIC: No skin rash. NEUROLOGIC: Alert and awake and oriented x3. No focal neurologic deficits. Moving all the extremit ies. PSYCHIATRIC: Mood and affect normal. LABORATORY DATA: Potassium is 4.5, BUN is 49, creatinine is 2.7. ASSESSMENT AND PLAN: 1. Acute kidney injury on chronic kidney disease. Renal function is better with diuretics, continue on diuresis. 2. Proteinuria. 3. Diabetic nephropathy. 4. Hypertension. 5. Edema. 6. Obesity. Plan is to continue on diuretics and monitor renal function.
[2017-07-26] MEDS: HumaLOG 300 UNITS/3 ML VIAL SC PRN (17:28)
[2017-07-26] MEDS: Gabapentin 100 MG CAP PO SCH (20:59)
[2017-07-26] MEDS: Insulin Detemir 100 UNITS/ML 15 UNITS in Pre-Filled Syringe 1 EACH SC SCH (21:03)
[2017-07-27] MEDS: cefTRIAXone\\ROCEPHIN 1 GM in Syringe 10 ML IVPB SCH (00:34)
[2017-07-27] MEDS: Levofloxacin/D5W 250 MG in Premix Bag 1 BAG IVPB SCH (01:43)
[2017-07-27] MEDS: Furosemide 100 MG/10 ML VIAL SLOW IVP SCH (05:41)
[2017-07-27] MEDS: Nitroglycerin 2% Ointment 1 INCH/1 GM Packet TOP SCH (05:44)
[2017-07-27 05:48] LABS: Anion Gap 14 mmol/L (10-20); BUN (Urea Nitrogen) 53 mg/dL (9.8-20.1); Calc. Creatinine Clearance 27 mL/min (70-130); Calcium 7.5 mg/dL (7.8-10.44); Carbon Dioxide 19 mmol/L (23-31); Chloride 104 mmol/L (98-107); Estimated GFR-MDRD 16
[2017-07-27] MEDS: HYDROcodone/Acetaminophen 5/325 mg Tablet PO PRN (07:03)
[2017-07-27] MEDS: Amlodipine 10 MG TAB PO SCH (08:13)
[2017-07-27] MEDS: Aspirin 81 mg Enteric Coated Tablet PO SCH (08:14)
[2017-07-27] MEDS: Atorvastatin Calcium 40 MG TAB PO SCH (08:14)
[2017-07-27] MEDS: Carvedilol 6.25 MG TAB PO SCH (08:14)
[2017-07-27] MEDS: hydrALAZINE 25 MG TAB PO SCH (08:15)
[2017-07-27] MEDS: Famotidine 20 MG TAB PO SCH (08:15)
[2017-07-27] MEDS: Heparin 5,000 UNITS/ML VIAL SC SCH (08:15)
[2017-07-27] MEDS: cloNIDine 0.1 MG TAB PO SCH (08:15)
[2017-07-27] MEDS ORDERED: Furosemide 40 MG TAB PO SCH (09:00)
[2017-07-27] MEDS ORDERED: Cefdinir 300 MG CAP PO SCH (09:00)
[2017-07-27] MEDS: HumaLOG 300 UNITS/3 ML VIAL SC PRN (09:17)
--- NOTE | 2017-07-27 09:29 | PDOC.PN ---
- Subjective Encounter Start Date: 07/27/17 Encounter Start Time: 07:30 Subjective: feels better, wants to go home -: still has some dry coughing spells - Objective Resuscitation Status: Resuscitation Status FULL:Full Resuscitation MAR Reviewed: Yes Vital Signs & Weight: Vital Signs (12 hours) Temp Pulse Resp BP Pulse Ox 07/27/17 08:15 80 07/27/17 08:13 80 07/27/17 08:11 98.3 F 80 16 173/72 H 97 07/27/17 04:00 97.4 F L 76 20 133/64 96 07/27/17 00:00 98.5 F 70 20 130/60 96 Weight Weight 182 lb 12.8 oz I&O: 07/26/17 07/27/17 07/28/17 06:59 06:59 06:59 Intake Total 840 1160 Output Total 1725 1900 Balance -686 -360 Result Diagrams: 07/26/17 07:40 07/27/17 05:07 Additional Labs: Accuchecks 07/27/17 07/26/17 07/26/17 04:49 20:30 17:00 POC Glucose 230 H 226 H 222 H 07/26/17 11:11 POC Glucose 150 H Phys Exam - Physical Examination HEENT: PERRLA, sclera anicteric Neck: no JVD, supple Respiratory: no wheezing, no rales rhonchi+ Cardiovascular: RRR, no significant murmur Gastrointestinal: soft, non-tender, positive bowel sounds Musculoskeletal: pulses present, edema present Neurological: non-focal, moves all 4 limbs Psychiatric: A&O x 3 Dx/Plan (1) DM type 2 (diabetes mellitus, type 2) Status: Chronic Qualifiers: Diabetes mellitus complication status: with hyperglycemia Diabetes mellitus half-way insulin use: with half-way use Qualified Code(s): E11.65 - Type 2 diabetes mellitus with hyperglycemia; Z79.4 - nuclear monitoring technician (current) use of insulin; Z79.4 - nuclear monitoring technician (current) use of insulin; Z79.4 - nuclear monitoring technician ( current) use of insulin; Z79.4 - snf (current) use of insulin Comment: serum sugar of 500mg on arrival (2) HTN (hypertension) Code(s): I10 - ESSENTIAL (PRIMARY) HYPERTENSION Status: Chronic Qualifiers: Hypertension type: essential hypertension Qualified Code(s): I10 - Essential (primary) hypertension (3) Hypoalbuminemia Code(s): E88.09 - OTH DISORDERS OF PLASMA-PROTEIN METABOLISM, NEC Status: Chronic Comment: due to renal wasting from ckd and diabetic nephropathy (4) ROD (acute kidney injury) Code(s): N17.9 - ACUTE KIDNEY FAILURE, UNSPECIFIED Status: Acute Comment: Watch renal function, avoid nephrotoxic meds (5) CKD (chronic kidney disease) stage 3, GFR 30-59 ml/min Status: Chronic (6) Chronic anemia Code(s): D64.9 - ANEMIA, UNSPECIFIED Status: Chronic Comment: sec to ckd (7) Dyslipidemia Code(s): E78.5 - HYPERLIPIDEMIA, UNSPECIFIED Status: Chronic (8) COPD exacerbation Code(s): J44.1 - CHRONIC OBSTRUCTIVE PULMONARY DISEASE W (ACUTE) EXACERBATION Status: Acute - Plan counselled reg smoking cessation -: to f/u with PCP on friday -: january dc home -: has insulin at home, new meds faxed to her pharmacy * .
[2017-07-27 11:21] VITALS: BP 146/74; TEMP 97.4
--- NOTE | 2017-07-27 13:27 | PRG ---
DATE OF SERVICE: 07/27/2017 SUBJECTIVE: Patient was seen and examined at bedside and overnight events noted. Patient denies any shortness of breath or chest pain or palpitation. No history of nausea or vomiting or diarrhea or f ever or chills or cramps. OBJECTIVE: GENERAL: This is an obese female, in no apparent distress. VITAL SIGNS: Temperature 97.5, pulse 72, respirations 16, and blood pressure 146/74. HEENT: Atraumatic, normocephalic. Oral mucosa is moist. NECK: Supple. CARDIOVASCULAR: S1, S2 heard. Rate and rhythm regular. RESPIRATORY: Clear to auscultation. GASTROINTESTINAL: Abdomen is soft. MUSCULOSKELETAL: 1+ edema. DERMATOLOGIC: No skin rash. NEUROLOGIC: Alert and awake and oriented x3. No focal neurologic deficits. Moving all the extremit ies. PSYCHIATRIC: Mood and affect normal. LABORATORY DATA: Potassium is 4.6, BUN is 53 and creatinine is 2.9. ASSESSMENT AND PLAN: 1. Acute kidney injury on chronic kidney disease stage 4. Renal function continues to get worse. I advised to have tight glycemic control. Her blood has been chronically elevated and is not complian t with her diet. Family member was also available and they are wanting to take care to primary care physician for regular followup for her blood sugar. Family member reported that patient is noncompli ant with diet. 2. Hyponatremia, limit fluid intake. 3. Acidosis from chronic disease. 4. Hypercalcemia. 5. Anemia of chronic disease. 6. Edema. 7. Proteinuria. 8. Diabetic nephropathy. 9. Obesity. Overall, prognosis is poor. No acute indication for dialysis. The patient was advised to follow up with the clinic in 2 weeks with blood work, BMP done and we will follow. Avoid ELIJAH inhibitors at thi s point. Continue on Lasix as tolerated for edema. We will have close followup with a communications engineer as an outpatient. Patient and family is aware to follow up in 1-2 weeks. Thank you for the consultation again and we will follow up as outpatient.
--- NOTE | 2017-07-27 15:22 | DIS ---
DATE OF ADMISSION: 07/24/2017 DATE OF DISCHARGE: 07/27/2017 DISCHARGE DISPOSITION: To home. PRIMARY DISCHARGE DIAGNOSES: Hypertension and diabetes mellitus type 2. Both were uncontrolled with the initial serum sugars of 500 on arrival. Both are controlled at the time of discharge. Acute kidney injury on top of chronic kidney disease stage 3, hypoalbuminemia secondary to diabetic nephropathy and chronic anemia due to chronic kidney disease, dyslipidemia, acute chronic obstructive pulmonary disease exacerbation, resolving. PROCEDURES DONE DURING HOSPITALIZATION: Chest x-ray done on the day of admission showed chronic findings with no acute infiltrate. Had a white count of 14 on the day of admission with discharge numbers of 9. Discharge BUN and creatinine is 53 and 2.9. Serum sugar was 542 on the day of admission. Troponin I was indeterminate, peaking up to 0.03, albumin is 2.4. BNP was 621. Blood cultures x2, no growth. Influenza A and B antigens were negative. DISCHARGE MEDICATIONS: Albuterol inhaler q.6 hourly p.r.n., Norvasc 10 mg p.o. daily, aspirin 81 mg p.o. daily, Lipitor 40 mg p.o. daily, Coreg 6.25 mg p.o. twice daily, Omnicef 300 mg p.o. daily for another 4 days, clonidine 0.1 mg p.o. twice daily, ferrous sulfate 325 mg p.o. 3 times daily, Lasix 40 mg p.o. twice daily, gabapentin 200 mg p.o. at bedtime, hydralazine 25 mg p.o. twice daily, NPH insulin 21 units subcu q.a.m. and 15 units p.o. subcutaneously at bedtime, prednisone 5 mg p.o. daily for another 3 days and to discontinue for COPD flare-up, ropinirole 1 mg p.o. at bedtime. ALLERGIES: No known drug allergies. DISCHARGE PLAN: Patient to follow up with Dr. De Oliveira on the 07/30/2017 at 10: 00 a.m. She also needs follow up with Dr. Avalos in 1 week. BRIEF COURSE DURING HOSPITALIZATION: Patient initially got admitted on the with complaints of generalized weakness. She also had a cough with chest congestion and sore throat. The patient was an active smoker. She was diagnosed with COPD exacerbation along with hypertension and diabetes mellitus type 2, both uncontrolled. Her initial serum sugar was more than 500 mg. Patient was admitted to telemetry and has had close monitoring along with consultation with Dr. Avalos for Nephrology. The patient has a history of CKD stage 3-4 with anasarca and hypoalbuminemia due to diabetic nephropathy. In view of this, she has had gentle diuresis done. She has had some acute kidney injury on top of her chronic kidney disease. The patient's diabetes and hypertension are well controlled at the time of discharge. She is a new patient for Dr. Benitez De Oliveira and will be seeing him on the 07/30/2017. I have asked patient to check her fingerstick glucose, blood pressure, pulse, and record on a sheet of paper for a period of 10 days to follow up with primary care physician and Dr. Avalos. She was counseled with regards to smoking cessation, along with fluid restriction and dietary compliance. Please see a face to face documentation on [employer] for the day of discharge. ERICKSON
== END 2017-07-27 11:37 | disposition home or self-care (01) | DRG 683 ==
LOC: ERS 18:11 → 2SW 21:45 → OBSVTOIN 21:45 → 2NO 07-25 16:22
PROVIDERS: ADMIT Internal Medicine; ATTEND Internal Medicine
DX: N17.9 Acute kidney failure, unspecified (principal); I13.0 Hypertensive heart and chronic kidney disease with heart failure and stage 1 through stage 4 chronic kidney disease, or unspecified chronic kidney disease; I50.32 Chronic diastolic (congestive) heart failure; E87.2 Acidosis; J44.1 Chronic obstructive pulmonary disease with (acute) exacerbation; J44.0 Chronic obstructive pulmonary disease with (acute) lower respiratory infection; E87.1 Hypo-osmolality and hyponatremia; E11.21 Type 2 diabetes mellitus with diabetic nephropathy; I16.0 Hypertensive urgency; E11.22 Type 2 diabetes mellitus with diabetic chronic kidney disease; E11.65 Type 2 diabetes mellitus with hyperglycemia; F17.210 Nicotine dependence, cigarettes, uncomplicated; Z79.4 Long term (current) use of insulin; J20.9 Acute bronchitis, unspecified; D63.1 Anemia in chronic kidney disease; E78.5 Hyperlipidemia, unspecified; E88.09 Other disorders of plasma-protein metabolism, not elsewhere classified; Z68.36 Body mass index [BMI] 36.0-36.9, adult; E83.52 Hypercalcemia; Z88.1 Allergy status to other antibiotic agents; I34.0 Nonrheumatic mitral (valve) insufficiency; G25.81 Restless legs syndrome; E66.01 Morbid (severe) obesity due to excess calories; N18.3 Chronic kidney disease, stage 3 (moderate)
CPT/HCPCS: 36415; 36416; 71010; 80048; 80053; 81003; 81015; 82553; 83605; 83690; 83880; 84484; 85025; 87040; 87086; 90471; 90682; 93005; 94640; 96365; 96374; 96375; 96376; 99406; A4216; G0008; J0360; J0696; J1644; J1815; J1940; J1956; J2543; J2930; J7050; J7620; Q2036

== ENCOUNTER 2017-08-20 23:17 | Inpatient (IN) | payer OTHER ==
[2017-08-20 23:46] LABS: #Eosinphils 0.2 thou/uL (0.0-0.7); #Lymphocytes 1.4 thou/uL (1.20-3.40); #Monocytes 0.7 thou/uL (0.11-0.59); #Neutrophils 7.1 thou/uL (1.40-6.50); %Basophils 0.3 % (0.0-1.0); %Eosinophils 1.6 % (0.0-10.0); %Lymphocytes 14.8 % (21.0-51.0); Hematocrit 23.8 % (36.0-47.0); Mean Platelet Volume 6.8 fL (7.4-10.4); Red Blood Cell (RBC) Count 2.65 mill/uL (4.20-5.40); White Blood Cell (WBC) Count 9.3 thou/uL (4.8-10.8)
[2017-08-21 00:06] LABS: ALT (SGPT) 21 U/L (8-55); AST (SGOT) 34 U/L (5-34); Alkaline Phosphatase 106 U/L (40-150); Anion Gap 16 mmol/L (10-20); BUN (Urea Nitrogen) 88 mg/dL (9.8-20.1); Bilirubin, Total 0.2 mg/dL (0.2-1.2); Calc. Creatinine Clearance 0 mL/min (70-130); Calcium 8.4 mg/dL (7.8-10.44); Carbon Dioxide 17 mmol/L (23-31); Chloride 109 mmol/L (98-107); Estimated GFR-MDRD 11; Globulin 3.4 g/dL (2.4-3.5); Protein, Total 6.4 g/dL (6.0-8.3)
[2017-08-21 00:16] LABS: Troponin I 0.019 ng/mL (< 0.028)
[2017-08-21] MEDS ORDERED: Acetaminophen 325 MG TAB ONE (01:18)
[2017-08-21] MEDS ORDERED: Furosemide 40 MG/4 ML VIAL ONE (01:18)
[2017-08-21] MEDS ORDERED: Ondansetron ODT 4 MG TAB SL PRN (03:14)
[2017-08-21] MEDS ORDERED: Ondansetron HCl/PF 4 MG/2 ML Vial IVP PRN ×2 (03:14→03:31)
[2017-08-21] MEDS ORDERED: Acetaminophen 325 MG TAB PO PRN (03:14)
[2017-08-21 03:19] VITALS: BMI 41.4
[2017-08-21] MEDS ORDERED: hydrALAZINE 20 MG/ML VIAL SLOW IVP PRN (03:31)
[2017-08-21] MEDS ORDERED: Dextrose 5% in Water 1,000 ML IV PRN (03:31)
[2017-08-21] MEDS ORDERED: cloNIDine 0.1 MG TAB PO PRN (03:31)
[2017-08-21] MEDS ORDERED: Ondansetron ODT 4 MG TAB PO PRN (03:31)
[2017-08-21] MEDS ORDERED: rOPINIRole HCl 2 MG TAB PO PRN (04:00)
[2017-08-21] MEDS ORDERED: PROVENTIL INHALER 6.7 G (200 INHALATIONS) INH PRN (04:00)
--- NOTE | 2017-08-21 05:05 | HP ---
PRIMARY CARE PROVIDER: Dr. Benitez De Oliveira PRIMARY SURVEY OPERATIONS DIRECTOR: Dr. Avalos CHIEF COMPLAINT: General weakness and shortness of breath. HISTORY OF PRESENT ILLNESS: This is a 61-year-old female who presents to [facility] Emergency Department complaining of increasing fatigue, weakness, and near falling. The patient states her symptoms have progressed over the last 24-48 hours, most prominent on the day of admission 08/21/2017. The patient denies any specific fever, chills, increased cough, congestion . The patient denied any specific exposure history, travel or new medications. The patient does adm it to a history of chronic kidney disease followed by Dr. Avalos on an outpatient basis. The patien t has noted increasing swelling of her lower extremities beyond her baseline edema. The patient has a known history of diabetes mellitus x22 years with poor control. The patient was notably admitted t o [facility] on 07/24/2017 through 07/27/2017 for hyperglycemia as well as acu te kidney injury on chronic kidney disease stage 4. In the emergency department, the patient receive d Lasix 80 mg x1 dose in addition to Tylenol. The patient was transferred to the medical floor for f urther evaluation. PAST MEDICAL HISTORY: 1. Chronic kidney disease stage 4. 2. Diabetes mellitus type 2, insulin requiring, diagnosed x22 years. 3. Tobacco abuse. 4. Anemia secondary to chronic kidney disease. 5. Diabetic nephropathy. 6. Dyslipidemia. 7. Chronic obstructive pulmonary disease. PAST SURGICAL HISTORY: 1. Status post right shoulder repair. 2. Status post left total knee arthroplasty. 3. Status post ovarian cyst removal. CURRENT MEDICATIONS: 1. Albuterol HFA 2 puffs inhaled q.i.d. p.r.n. 2. Amlodipine 10 mg 1 tab p.o. daily. 3. Enteric coated aspirin 81 mg 1 tab p.o. daily. 4. Lipitor 40 mg 1 tab p.o. daily. 5. Coreg 6.25 mg p.o. b.i.d. 6. Clonidine 0.1 p.o. b.i.d. 7. Ferrous sulfate 324 mg 2 tabs p.o. q.a.m. 8. Lasix 40 mg 1 tab p.o. b.i.d. 9. Hydralazine 25 mg p.o. b.i.d. 10. NPH insulin, 15 units subcutaneously at bedtime and 21 units subcutaneously q.a.c. 11. Prednisone 5 mg p.o. daily. 12. Requip 1 mg p.o. at bedtime. ALLERGIES: VANCOMYCIN. FAMILY HISTORY: Diabetes mellitus in multiple family members. Mother from complications of carie g cancer at age 75. Father from complications of mesothelioma at the age of 62. SOCIAL HISTORY: The patient is . Resides in [place], [place]. Smokes up to a pack of cigaret javid daily. Ambulates with the use of a rolling walker. No alcohol or illicit drug use. REVIEW OF SYSTEMS: The following complete review of systems was negative, unless otherwise mentioned in the HPI or below: Constitutional: Weight loss or gain, ability to conduct usual activities. Skin: Rash, itching. Eyes: Double vision, pain. ENT/Mouth: Nose bleeding, neck stiffness, pain, tenderness. Cardiovascular: Palpitations, dyspnea on exertion, orthopnea. Respiratory: Shortness of breath, wheezing, cough, hemoptysis, fever or night sweats. Gastrointestinal: Poor appetite, abdominal pain, heartburn, nausea, vomiting, constipation, or diarrhea. Genitourinary: Urgency, frequency, dysuria, nocturia. Musculoskeletal: Pain, swelling. Neurologic/Psychiatric: Anxiety, depression. Allergy/Immunologic: Skin rash, bleeding tendency. PHYSICAL EXAMINATION: VITAL SIGNS ON ADMISSION: Blood pressure 134/76, pulse 72, respiratory rate is 16, temperature 94.8 degrees Fahrenheit, O2 saturation 99% on room air. GENERAL APPEARANCE: This is a 61-year-old female, alert and oriented x3, pleasant, in no a cute distress. HEENT: Pupils are equal, round, and reactive to light and accommodation. Extraocular muscles are in tact. No scleral icterus, no conjunctival injection. Nares patent. OP is clear. Patient is edentu lous. NECK: Supple, no cervical adenopathy, no thyromegaly, no carotid bruits, no JVD appreciated. Cervic al spine with full active and passive range of motion. No meningeal signs appreciated. LUNGS: Diminished breath sounds in the bases bilaterally. CARDIOVASCULAR: S1, S2 with distant heart sounds. ABDOMEN: Obese, soft, nontender, nondistended. Landmarks are difficult to palpate due to patient's body habitus. No rebound or guarding noted. EXTREMITIES: Pitting edema to the proximal shins bilaterally. Pulses are palpable distally at the d orsalis pedis, posterior tibial, and popliteal arteries bilaterally. Capillary refill less than 2 se conds. NEUROLOGIC: Cranial nerves II-XII are grossly intact. No focal or lateralizing signs appreciated. PERTINENT LABORATORY AND X-RAY FINDINGS: Sodium 137, potassium 5.0, chloride 109, CO2 of 17, BUN 88, creatinine 4.24 with estimated GFR of 11, glucose 80, calcium 8.4, total CK 765. Troponin negative x1. BNP 340 previously noted 622 on 07/25/2017. Albumin 3.0. CBC showed a white blood cell count 9 .3, hemoglobin 8, hematocrit 24, platelet count 385, 76% neutrophils. Portable chest x-ray dated by my interpretation shows bibasilar pulmonary edema. Post-surgical changes of the right hum erus. Chronic changes in bilateral lung delgado noted. ASSESSMENT AND PLAN: 1. Acute kidney injury on chronic kidney disease stage 4. The patient will be admitted to the medic al floor. Appears the patient is nearing end-stage renal disease. We will consult Nephrology Servic e for evaluation and consideration of hemodialysis during the hospital stay. 2. Generalized weakness. Suspect secondarily to worsening renal function in addition to uremia. Se e #1 above. 3. Metabolic acidosis. Chronic. See #1 above. 4. Diabetes mellitus type 2, insulin requiring. Insulin sliding scale for reflexive coverage. Resu me home NPH 5. Accu-Cheks a.c. and at bedtime. ADA diet. 6. Chronic normocytic anemia secondary to chronic kidney disease. Stable currently. No evidence to suggest acute blood loss. Repeat CBC in the a.m. 7. Tobacco use. We will offer smoking cessation resources prior to discharge. 8. Prophylaxis. Sequential compression devices while in bed. Pepcid 20 mg p.o. b.i.d. Smoking madhav sation resources. 9. Code status is full. Surrogate medical decision maker is the patient's daughter.
[2017-08-21] MEDS ORDERED: Furosemide 40 MG/4 ML VIAL SLOW IVP SCH (06:00)
--- NOTE | 2017-08-21 07:33 | RAD ---
PORTABLE CHEST XRAY: DATE: 08/20/16. HISTORY: Shortness of breath and fluid overload. COMPARISON: 07/24/17. FINDINGS: There is patchy parenchymal opacity seen in the region of the lingula and at the left lung base worri some for either pneumonia or aspiration pneumonitis. The right lung is clear. The cardiac silhouett e is magnified by projection stable in size from the prior study. Postsurgical changes right proxima l humerus are again present. There is left glenohumeral osteoarthropathy present. No other interval change. IMPRESSION: Patchy parenchymal opacity in the region of the lingula and left lung base which may be related to ei ther pneumonia or aspiration pneumonitis. Followup to resolution is recommended. POS: CARLITOS
[2017-08-21] MEDS: Amlodipine 10 MG TAB PO SCH (08:07)
[2017-08-21] MEDS: predniSONE 5 MG TAB PO SCH (08:07)
[2017-08-21] MEDS: Ferrous Sulfate 325 MG TAB PO SCH (08:08)
[2017-08-21] MEDS: Famotidine 20 MG TAB PO SCH (08:08)
[2017-08-21] MEDS: Carvedilol 25 MG TAB PO SCH ×2 (08:09→21:41)
[2017-08-21] MEDS: hydrALAZINE 25 MG TAB PO SCH ×2 (08:09→21:41)
[2017-08-21] MEDS: cloNIDine 0.1 MG TAB PO SCH ×2 (08:10→21:41)
[2017-08-21] MEDS: Atorvastatin Calcium 40 MG TAB PO SCH (08:10)
[2017-08-21] MEDS: Aspirin 81 mg Enteric Coated Tablet PO SCH (08:10)
[2017-08-21] MEDS: Insulin NPH/Reg Insulin Hm 300 UNITS/3 ML VIAL SC SCH ×3 (08:19→17:25)
[2017-08-21] MEDS ORDERED: Metolazone 5 MG TAB PO SCH ×2 (08:45→09:00)
[2017-08-21] MEDS ORDERED: Furosemide 100 MG/10 ML VIAL SLOW IVP SCH ×2 (08:45→09:00)
[2017-08-21] MEDS ORDERED: Furosemide 40 MG TAB PO SCH (09:00)
[2017-08-21] MEDS: traMADol HCl 50 MG TAB PO PRN (09:52)
--- NOTE | 2017-08-21 11:35 | CON ---
DATE OF CONSULTATION: 08/21/2017 REASON FOR CONSULTATION: Acute kidney injury on chronic kidney disease. REASON FOR ADMISSION: Weakness and edema. HISTORY OF PRESENT ILLNESS: This 61-year-old white female with history of type 2 diabetes, hypertens ion, chronic kidney disease, hyperlipidemia who came to the hospital with worsening swelling and weak ness. The patient was found to have elevated creatinine and Nephrology is consulted. The patient is noncompliant as an outpatient and last creatinine was 2.9, now is 4.2, her glucose remains elevated chronically in the 200s and 300 range. The patient complains of more swelling and no fever or chills. No nausea, vomiting, no weight loss r eported. PAST MEDICAL HISTORY: 1. Chronic kidney disease, stage 4. 2. Type 2 diabetes. 3. Hypertension. 4. Hyperlipidemia. 5. COPD. 6. Tobacco use. PAST SURGICAL HISTORY: Right shoulder repair, left knee arthroplasty, post-ovarian cyst removal. HOME MEDICATIONS: Albuterol, amlodipine, aspirin, Lipitor, Coreg, clonidine, ferrous sulfate, Lasix, hydralazine, NPH, prednisone. ALLERGIES: VANCOMYCIN. SOCIAL HISTORY: She smokes 1 pack per day, no alcohol or illicit drug abuse. FAMILY HISTORY: Positive for diabetes. REVIEW OF SYSTEMS: The following complete review of systems was negative, unless otherwise mentioned in the HPI or below: Constitutional: Weight loss or gain, ability to conduct usual activities. Skin: Rash, itching. Eyes: Double vision, pain. ENT/Mouth: Nose bleeding, neck stiffness, pain, tenderness. Cardiovascular: Palpitations, dyspnea on exertion, orthopnea. Respiratory: Shortness of breath, wheezing, cough, hemoptysis, fever or night sweats. Gastrointestinal: Poor appetite, abdominal pain, heartburn, nausea, vomiting, constipation, or diarrhea. Genitourinary: Urgency, frequency, dysuria, nocturia. Musculoskeletal: Pain, swelling. Neurologic/Psychiatric: Anxiety, depression. Allergy/Immunologic: Skin rash, bleeding tendency. PHYSICAL EXAMINATION: GENERAL: This is a morbidly obese female in no apparent distress. VITAL SIGNS: Temperature 97.4, pulse 70, respiratory 20, blood pressure 154/87. HEENT: Atraumatic, normocephalic. Oral mucosa is moist. NECK: Supple. HEART: S1, S2 heard. Rate and rhythm regular. RESPIRATORY: Clear. GI: Abdomen is obese, soft. MUSCULOSKELETAL: 2-3+ edema. DERMATOLOGIC: No skin rash, chronic skin lesions. NEUROLOGIC: Alert, awake, moving all the extremities. PSYCHIATRIC: Mood and affect normal. LABORATORY AND X-RAY FINDINGS: Hemoglobin is 8.2. Potassium is 5.0. BUN 80, creatinine was 4.2. ASSESSMENT AND PLAN: 1. Acute kidney injury on chronic kidney disease stage 4. Baseline creatinine was around 2.9 not escobedo re if it is worsening of her baseline versus acute kidney injury. Plan is to start on IV Lasix. She has responded with improvement in renal function to Lasix in the past and will continue that. 2. S ignificant proteinuria with diabetic nephropathy. 3. Mild hyperkalemia. 4. Acidosis. 5. Hypoalbuminemia secondary to proteinuria. 6. Anemia of chronic disease. We will check iron studies and give Epogen as tolerated. 7. Hypertension. Continue home medications, titrate as needed. 8. Edema. Continue on Lasix. The plan is to start on Lasix IV 80 b.i.d. with metolazone and monitor the response. If renal functi on gets worse, might have to consider renal replacement therapy. We will follow. Thank you for the consult.
--- NOTE | 2017-08-21 12:53 | PDOC.PN ---
- Subjective Encounter Start Date: 08/21/17 Encounter Start Time: 10:30 Subjective: no sob or palp - Objective Resuscitation Status: Resuscitation Status FULL:Full Resuscitation MAR Reviewed: Yes Vital Signs & Weight: Vital Signs (12 hours) Temp Pulse Resp BP Pulse Ox 08/21/17 08:09 78 08/21/17 08:07 78 08/21/17 08:00 97.4 F L 78 22 H 154/87 H 98 08/21/17 07:17 97.4 F L 78 20 127/69 96 08/21/17 05:37 94.5 F L 08/21/17 03:04 94.8 F L 72 16 99 08/21/17 02:50 94.8 F L 72 16 134/76 99 Weight Weight 205 lb 3 oz Result Diagrams: 08/20/17 23:34 08/20/17 23:34 Additional Labs: Accuchecks 08/21/17 06:13 POC Glucose 182 H Phys Exam - Physical Examination HEENT: PERRLA, moist MMs Neck: no JVD, supple Respiratory: no wheezing, no rales Cardiovascular: RRR, no significant murmur Gastrointestinal: soft, no distention, positive bowel sounds Musculoskeletal: pulses present, edema present Neurological: non-focal, moves all 4 limbs Psychiatric: A&O x 3 Dx/Plan (1) Acute on chronic renal failure Code(s): N17.9 - ACUTE KIDNEY FAILURE, UNSPECIFIED; N18.9 - CHRONIC KIDNEY DISEASE, UNSPECIFIED Status: Acute (2) Metabolic acidosis Code(s): E87.2 - ACIDOSIS Status: Acute (3) COPD (chronic obstructive pulmonary disease) Status: Acute Qualifiers: COPD type: COPD with acute exacerbation Qualified Code(s): J44.1 - Chronic obstructive pulmonary disease with (acute) exacerbation (4) Diabetes Code(s): E11.9 - TYPE 2 DIABETES MELLITUS WITHOUT COMPLICATIONS Status: Chronic Qualifiers: Diabetes mellitus type: type 2 Diabetes mellitus complication status: with kidney complications Diabetes mellitus complication detail: with chronic kidney disease Diabetes mellitus mcc insulin use: with intermediate frame tender use Chronic kidney disease stage: stage 3 (moderate) Qualified Code(s): E11.22 - Type 2 diabetes mellitus with diabetic chronic kidney disease; N18.3 - Chronic kidney disease, stage 3 (moderate); N18.3 - Chronic kidney disease, stage 3 ( moderate); Z79.4 - long term care administrator (current) use of insulin; Z79.4 - long term care administrator ( current) use of insulin; Z79.4 - long term care administrator (current) use of insulin; Z79.4 - [facility] (current) use of insulin (5) CKD (chronic kidney disease) stage 3, GFR 30-59 ml/min Status: Chronic (6) Chronic anemia Code(s): D64.9 - ANEMIA, UNSPECIFIED Status: Chronic Comment: sec to ckd (7) Dyslipidemia Code(s): E78.5 - HYPERLIPIDEMIA, UNSPECIFIED Status: Chronic (8) HTN (hypertension) Code(s): I10 - ESSENTIAL (PRIMARY) HYPERTENSION Status: Chronic Qualifiers: Hypertension type: essential hypertension Qualified Code(s): I10 - Essential (primary) hypertension (9) Hypoalbuminemia Code(s): E88.09 - OTH DISORDERS OF PLASMA-PROTEIN METABOLISM, NEC Status: Chronic Comment: due to renal wasting from ckd and diabetic nephropathy - Plan is on lasix and metolazone -: likely will need HD, watch for renal function -: continue prednisone 5mg daily -: to amb in hallway as tolerated * . Review of Systems - Medications/Allergies Allergies/Adverse Reactions: Allergies Allergy/AdvReac Type Severity Reaction Status Date / Time No Known Allergies Allergy Verified 08/21/17 03:18 Medications: Current Medications Acetaminophen (Tylenol) 1,000 mg PO Q6H PRN PRN Reason: Headache/Fever or Mild Pain Albuterol Sulfate (Proventil Hfa) 2 puff INH Q6H PRN PRN Reason: SOB &/or Wheezing Amlodipine Besylate (Norvasc) 10 mg PO DAILY [facility] Last Admin: 08/21/17 08:07 Dose: 10 mg Aspirin (Ecotrin) 81 mg PO DAILY [facility] Last Admin: 08/21/17 08:10 Dose: 81 mg Atorvastatin Calcium (Lipitor) 40 mg PO DAILY [facility] Last Admin: 08/21/17 08:10 Dose: 40 mg Carvedilol (Coreg) 6.25 mg PO BID [facility] Last Admin: 08/21/17 08:09 Dose: 6.25 mg Clonidine (Catapres) 0.1 mg PO Q4H PRN PRN Reason: Systolic BP > 180 Clonidine (Catapres) 0.1 mg PO BID [facility] Last Admin: 08/21/17 08:10 Dose: 0.1 mg Dextrose/Water (Dextrose 50%) 25 gm SLOW IVP PRN PRN PRN Reason: Hypoglycemia Famotidine (Pepcid) 20 mg PO DAILY [facility] Last Admin: 08/21/17 08:08 Dose: 20 mg Ferrous Sulfate (Feosol) 650 mg PO QAM-[facility] Last Admin: 08/21/17 08:08 Dose: 650 mg Furosemide (Lasix) 80 mg SLOW IVP 0600,1400 [facility] Gabapentin (Neurontin) 200 mg PO [facility] Glucagon (Glucagon) 1 mg IM PRN PRN PRN Reason: Hypoglycemia Hydralazine HCl (Apresoline) 10 mg SLOW IVP Q4H PRN PRN Reason: Systolic BP > 180 Hydralazine HCl (Apresoline) 25 mg PO BID [facility] Last Admin: 08/21/17 08:09 Dose: 25 mg Dextrose/Water (D5w) 1,000 mls @ 0 mls/hr IV .Q0M PRN; As Directed PRN Reason: Hypoglycemia Insulin Human Isoph/Insulin Regular (Humulin 70/30) 15 units SC [facility] Insulin Human Isoph/Insulin Regular (Humulin 70/30) 21 units SC [facility] Last Admin: 08/21/17 11:59 Dose: Not Given Insulin Human Lispro (Humalog) 0 units SC .MODERATE SLIDING SC PRN PRN Reason: Moderate Correctional Scale Insulin Human Lispro (Humalog) 0 units SC .BEDTIME SLIDING SC PRN PRN Reason: Bedtime Correctional Scale Metolazone (Zaroxolyn) 5 mg PO 0830 [facility] Ondansetron HCl (Zofran Odt) 4 mg PO Q6H PRN PRN Reason: Nausea/Vomiting Ondansetron HCl (Zofran) 4 mg IVP Q6H PRN PRN Reason: Nausea/Vomiting Prednisone (Prednisone) 5 mg PO QAM-[facility] Last Admin: 08/21/17 08:07 Dose: 5 mg Ropinirole HCl (Requip) 1 mg PO HSPRN PRN PRN Reason: Restlessness Sodium Chloride (Flush - Normal Saline) 10 ml IVF PRN PRN PRN Reason: Saline Flush Tramadol HCl (Ultram) 50 mg PO TIDPRN PRN PRN Reason: Moderate to Severe Pain (6-10) Last Admin: 08/21/17 09:52 Dose: 50 mg
[2017-08-21] MEDS: Acetaminophen 500 MG TAB PO PRN (15:09)
[2017-08-21] MEDS: Furosemide 100 MG/10 ML VIAL SLOW IVP SCH (15:12)
[2017-08-21] MEDS ORDERED: Insulin NPH/Reg Insulin Hm 300 UNITS/3 ML VIAL SC SCH (21:00)
[2017-08-21] MEDS: Gabapentin 100 MG CAP PO SCH (21:41)
[2017-08-22 04:46] LABS: Anion Gap 16 mmol/L (10-20); BUN (Urea Nitrogen) 89 mg/dL (9.8-20.1); Calc. Creatinine Clearance 21 mL/min (70-130); Calcium 7.5 mg/dL (7.8-10.44); Carbon Dioxide 14 mmol/L (23-31); Chloride 115 mmol/L (98-107); Estimated GFR-MDRD 11
[2017-08-22 04:47] LABS: Iron 33 ug/dL (50-170)
[2017-08-22 05:07] LABS: Band 1 % (5-11); Hematocrit 19.1 % (36.0-47.0); Mean Platelet Volume 7.5 fL (7.4-10.4); Metamyelocyte 1 % (0-0); Neutrophil 62 % (42-75); White Blood Cell (WBC) Count 6.2 thou/uL (4.8-10.8)
[2017-08-22] MEDS: Furosemide 100 MG/10 ML VIAL SLOW IVP SCH ×2 (06:05→14:30)
[2017-08-22] MEDS: Dextrose 50% Abboject 50 ML SYRINGE SLOW IVP PRN ×2 (07:57→14:28)
[2017-08-22] MEDS: Metolazone 5 MG TAB PO SCH (08:00)
[2017-08-22] MEDS: Famotidine 20 MG TAB PO SCH (08:00)
[2017-08-22] MEDS: Ferrous Sulfate 325 MG TAB PO SCH (08:00)
[2017-08-22] MEDS: Atorvastatin Calcium 40 MG TAB PO SCH (08:00)
[2017-08-22] MEDS: hydrALAZINE 25 MG TAB PO SCH ×2 (08:00→22:37)
[2017-08-22] MEDS: predniSONE 5 MG TAB PO SCH (08:01)
[2017-08-22] MEDS: Carvedilol 25 MG TAB PO SCH ×2 (08:01→22:35)
[2017-08-22] MEDS: Aspirin 81 mg Enteric Coated Tablet PO SCH (08:02)
[2017-08-22] MEDS: cloNIDine 0.1 MG TAB PO SCH ×2 (08:02→22:36)
[2017-08-22] MEDS: Amlodipine 10 MG TAB PO SCH (08:10)
[2017-08-22] MEDS: Insulin NPH/Reg Insulin Hm 300 UNITS/3 ML VIAL SC SCH (09:30)
[2017-08-22] MEDS ORDERED: Heparin 1,000 UNITS/ML VIAL ONE (11:11)
--- NOTE | 2017-08-22 12:07 | ULT ---
BILATERAL UPPER EXTREMITY VEIN MAPPING: Date: 08/22/17 INDICATION: End-stage renal disease. Vascular procedure planning. FINDINGS: RIGHT UPPER EXTREMITY BRACHIAL ARTERY: 3.9 mm RADIAL ARTERY: 1.6 mm ULNAR ARTERY: 1.3 mm CEPHALIC VEIN Proximal Humerus: 3.1 mm Mid Humerus: 2.7 mm Distal Humerus: 2.5 mm Antecubital Fossa: 3.4 mm Proximal Forearm: 2.2 mm Mid Forearm: 2.0 mm Distal Forearm: 1.7 mm BASILIC VEIN Proximal Humerus: 2.5 mm Mid Humerus: 3.6 mm Distal Humerus: 2.4 mm Antecubital Fossa: 3.2 mm Proximal Forearm: 2.0 mm Mid Forearm: 2.0 mm Distal Forearm: 1.5 mm LEFT UPPER EXTREMITY BRACHIAL ARTERY: 3.2 mm RADIAL ARTERY: 1.1 mm ULNAR ARTERY: 1.7 mm CEPHALIC VEIN Proximal Humerus: 2.3 mm Mid Humerus: 2.2 mm Distal Humerus: 2.0 mm Antecubital Fossa: Clot (level of proximal forearm) Proximal Forearm: 2.0 mm Mid Forearm: 1.3 mm Distal Forearm: 1.4 mm BASILIC VEIN Proximal Humerus: 5.3 mm Mid Humerus: 3.4 mm Distal Humerus: 3.4 mm Antecubital Fossa: 2.2 mm Proximal Forearm: 1.1 mm Mid Forearm: 0.6 mm Distal Forearm: 0.9 mm IMPRESSION: 1. Bilateral upper extremity vein mapping as above. 2. Incidental note of clot within the left cephalic vein, proximal forearm level. POS: [facility]
--- NOTE | 2017-08-22 12:56 | HP ---
HISTORY OF PRESENT ILLNESS: A 61-year-old female who lives with her children in [place]. She is si ngle. 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 She is morbidly obese, 4 feet 11, 205 pounds, 41 BMI with metabolic syndrome and comorbidities of hypertension, diabetes mellitus insulin-dependent. She has chronic ki dney disease. She ate breakfast this morning and then I was consulted to place hemodialysis catheter . The patient was admitted on 08/21/2017. She had an IV in her left antecubital area that was remov ed upon my request after consultation. Plan is to place a hemodialysis catheter, possible central li ne this evening and plan more permanent dialysis access in her upper extremity next week. She had ul trasound vein mapping both arms on 08/22/2017 cephalic vein, right 3.1, 2.7, 2.5 cm; antecubital 3.4 mm, 2.2 and 2.0, and 1.7 mm; basilic vein, right 2.5, 3.6, 2.4, 3.2 mm; antecubital fossa, left, 2.3, 2.2, 2 mm clot; antecubital fossa, left arm consistent with IV and antecubital vein, thus obligating the patient to dominant right arm fistula because of IV access in antecubital area in a dialysis pat ient. Basilic vein, left, 5.3, 3.3, 3.4 mm. ALLERGIES: None. SOCIAL HISTORY: Tobacco one-half pack per day. ALCOHOL: None. MEDICATIONS: At home aspirin 81 mg a day, amlodipine 10 mg daily, albuterol p.r.n., furosemide 40 mg b.i.d., ferrous sulfate 2 mg q.a.m., carvedilol 6.25 mg b.i.d., atorvastatin 40 mg daily, clonidine 0.1 mg b.i.d., insulin 21 units subcu a.c. and 15 units subcu at bedtime, NPH insulin regular 70/30, gabapentin 200 mg at bedtime, Requip 1 mg p.o. at bedtime, prednisone 5 mg a.m., hydralazine 12 mg p. o. b.i.d., amlodipine 10 mg a.m. PAST SURGICAL HISTORY: Right upper extremity ORIF humerus fracture in the past, left knee replacemen t, ovarian cyst removal. No history of colonoscopy. PAST MEDICAL HISTORY: Morbid obesity, metabolic syndrome, hypertension, diabetes mellitus, end-stage renal disease, tobacco abuse, chronic anemia for medical disease, COPD, diabetic nephropathy. PHYSICAL EXAMINATION: VITAL SIGNS: 4 feet 11 inches, 205 pounds, 41 BMI. Temperature 98.4, 71, 51/79. HEAD, EYES, EARS, NOSE, AND THROAT: Unremarkable. LUNGS: Clear to auscultation. CARDIAC: Regular rate and rhythm without murmur or gallop. ABDOMEN: Obese, soft, nontender. Manage antecubital fossa, left, indicative IV and blood draws. EXTREMITIES: Unremarkable. Palpable radial pulses bilaterally. LABORATORY DATA: White count 6, hemoglobin 6.4. Sodium 139, potassium 5.6, BUN 89, creatinine 4.1, GFR 11. ASSESSMENT AND PLAN: 1. End-stage renal disease, needing dialysis access. Unfortunately, she ate breakfast, surgery will have to be delayed until 4:[address] hemodialysis catheter and initiate dialysis. She will need custodial dialysis access and we will plan right arm AV fistula next week. Unfortunately, she has not had IV antecubital fossa resulted in a thrombus in her nondominant left arm preferable fo r dialysis access is now not available because of IV access and her antecubital fossa in a patient wi th chronic kidney disease and end-stage renal disease. 2. Tobacco abuse. 3. Metabolic syndrome. 4. Diabetes mellitus, insulin-dependent. 5. Hypertension. 6. Elevated cholesterol. 7. Chronic obstructive pulmonary disease.
--- NOTE | 2017-08-22 13:39 | PDOC.PN ---
- Subjective Encounter Start Date: 08/22/17 Encounter Start Time: 10:00 Subjective: no sob, is amb in room - Objective Resuscitation Status: Resuscitation Status FULL:Full Resuscitation MAR Reviewed: Yes Vital Signs & Weight: Vital Signs (12 hours) Temp Pulse Resp BP BP Pulse Ox 08/22/17 08:10 151/79 H 08/22/17 08:02 151/79 H 08/22/17 08:00 70 151/79 H 08/22/17 07:24 98.4 F 71 18 08/22/17 02:30 98.4 F 71 18 122/57 L 97 Weight Weight 205 lb 3 oz I&O: 08/21/17 08/22/17 08/23/17 06:59 06:59 06:59 Intake Total 1000 Balance 1000 Result Diagrams: 08/22/17 03:08 08/22/17 03:08 Additional Labs: Accuchecks 08/22/17 08/22/17 08/22/17 13:12 08:49 08:21 POC Glucose 85 149 H 63 L 08/22/17 08/22/17 08/22/17 07:58 07:32 04:03 POC Glucose 62 L 39 L* 75 08/21/17 08/21/17 08/21/17 21:31 17:17 11:59 POC Glucose 223 H 104 69 L Phys Exam - Physical Examination HEENT: PERRLA, moist MMs Neck: no JVD, supple Respiratory: no wheezing, no rales Cardiovascular: RRR, no significant murmur Gastrointestinal: soft, non-tender, positive bowel sounds Musculoskeletal: pulses present, edema present Neurological: non-focal, moves all 4 limbs Psychiatric: A&O x 3 Dx/Plan (1) Acute on chronic renal failure Code(s): N17.9 - ACUTE KIDNEY FAILURE, UNSPECIFIED; N18.9 - CHRONIC KIDNEY DISEASE, UNSPECIFIED Status: Acute (2) Metabolic acidosis Code(s): E87.2 - ACIDOSIS Status: Acute (3) COPD (chronic obstructive pulmonary disease) Status: Acute Qualifiers: COPD type: COPD with acute exacerbation Qualified Code(s): J44.1 - Chronic obstructive pulmonary disease with (acute) exacerbation (4) Diabetes Code(s): E11.9 - TYPE 2 DIABETES MELLITUS WITHOUT COMPLICATIONS Status: Chronic Qualifiers: Diabetes mellitus type: type 2 Diabetes mellitus complication status: with kidney complications Diabetes mellitus complication detail: with chronic kidney disease Diabetes mellitus truckload checker insulin use: with longterm use Chronic kidney disease stage: stage 3 (moderate) Qualified Code(s): E11.22 - Type 2 diabetes mellitus with diabetic chronic kidney disease; N18.3 - Chronic kidney disease, stage 3 (moderate); N18.3 - Chronic kidney disease, stage 3 ( moderate); Z79.4 - skilled nursing (current) use of insulin; Z79.4 - chief solution architect ( current) use of insulin; Z79.4 - chief solution architect (current) use of insulin; Z79.4 - chief solution architect (current) use of insulin (5) CKD (chronic kidney disease) stage 3, GFR 30-59 ml/min Status: Chronic (6) Chronic anemia Code(s): D64.9 - ANEMIA, UNSPECIFIED Status: Chronic Comment: sec to ckd (7) Dyslipidemia Code(s): E78.5 - HYPERLIPIDEMIA, UNSPECIFIED Status: Chronic (8) HTN (hypertension) Code(s): I10 - ESSENTIAL (PRIMARY) HYPERTENSION Status: Chronic Qualifiers: Hypertension type: essential hypertension Qualified Code(s): I10 - Essential (primary) hypertension (9) Hypoalbuminemia Code(s): E88.09 - OTH DISORDERS OF PLASMA-PROTEIN METABOLISM, NEC Status: Chronic Comment: due to renal wasting from ckd and diabetic nephropathy - Plan will be initiated on HD -: 2 units prbc, h/h: 02/24 -: for HD access today -: has K of 5.6, one dose kayexalate -: watch for hypoglycemia, hold all insulins for now * . Review of Systems - Medications/Allergies Allergies/Adverse Reactions: Allergies Allergy/AdvReac Type Severity Reaction Status Date / Time No Known Allergies Allergy Verified 08/21/17 03:18 Medications: Current Medications Acetaminophen (Tylenol) 1,000 mg PO Q6H PRN PRN Reason: Headache/Fever or Mild Pain Last Admin: 08/21/17 15:09 Dose: 1,000 mg Albuterol Sulfate (Proventil Hfa) 2 puff INH Q6H PRN PRN Reason: SOB &/or Wheezing Amlodipine Besylate (Norvasc) 10 mg PO DAILY [facility] Last Admin: 08/22/17 08:10 Dose: 10 mg Aspirin (Ecotrin) 81 mg PO DAILY [facility] Last Admin: 08/22/17 08:02 Dose: 81 mg Atorvastatin Calcium (Lipitor) 40 mg PO DAILY [facility] Last Admin: 08/22/17 08:00 Dose: 40 mg Carvedilol (Coreg) 6.25 mg PO BID [facility] Last Admin: 08/22/17 08:01 Dose: 6.25 mg Clonidine (Catapres) 0.1 mg PO Q4H PRN PRN Reason: Systolic BP > 180 Clonidine (Catapres) 0.1 mg PO BID [facility] Last Admin: 08/22/17 08:02 Dose: 0.1 mg Dextrose/Water (Dextrose 50%) 25 gm SLOW IVP PRN PRN PRN Reason: Hypoglycemia Famotidine (Pepcid) 20 mg PO DAILY [facility] Last Admin: 08/22/17 08:00 Dose: 20 mg Ferrous Sulfate (Feosol) 650 mg PO [facility] Last Admin: 08/22/17 08:00 Dose: 650 mg Furosemide (Lasix) 80 mg SLOW IVP 0600,1400 [facility] Last Admin: 08/22/17 06:05 Dose: 80 mg Gabapentin (Neurontin) 200 mg PO [facility] Last Admin: 08/21/17 21:41 Dose: 200 mg Glucagon (Glucagon) 1 mg IM PRN PRN PRN Reason: Hypoglycemia Hydralazine HCl (Apresoline) 10 mg SLOW IVP Q4H PRN PRN Reason: Systolic BP > 180 Hydralazine HCl (Apresoline) 25 mg PO BID [facility] Last Admin: 08/22/17 08:00 Dose: 25 mg Dextrose/Water (D5w) 1,000 mls @ 0 mls/hr IV .Q0M PRN; As Directed PRN Reason: Hypoglycemia Insulin Human Lispro (Humalog) 0 units SC .MODERATE SLIDING SC PRN PRN Reason: Moderate Correctional Scale Insulin Human Lispro (Humalog) 0 units SC .BEDTIME SLIDING SC PRN PRN Reason: Bedtime Correctional Scale Metolazone (Zaroxolyn) 5 mg PO 0830 [facility] Last Admin: 08/22/17 08:00 Dose: 5 mg Ondansetron HCl (Zofran Odt) 4 mg PO Q6H PRN PRN Reason: Nausea/Vomiting Ondansetron HCl (Zofran) 4 mg IVP Q6H PRN PRN Reason: Nausea/Vomiting Prednisone (Prednisone) 5 mg PO QAM-[facility] Last Admin: 08/22/17 08:01 Dose: 5 mg Ropinirole HCl (Requip) 1 mg PO HSPRN PRN PRN Reason: Restlessness Sodium Chloride (Flush - Normal Saline) 10 ml IVF PRN PRN PRN Reason: Saline Flush Sodium Chloride (Flush - Normal Saline) 10 ml IVF PRN PRN PRN Reason: Saline Flush Tramadol HCl (Ultram) 50 mg PO TIDPRN PRN PRN Reason: Moderate to Severe Pain (6-10) Last Admin: 08/21/17 09:52 Dose: 50 mg
[2017-08-22] MEDS: traMADol HCl 50 MG TAB PO PRN ×2 (14:46→22:36)
[2017-08-22] MEDS ORDERED: Tuberculin PPD 0.1 ML VIAL I-DERMAL SCH (15:15)
--- NOTE | 2017-08-22 15:26 | PRG ---
DATE OF SERVICE: 08/22/2017 SUBJECTIVE: Patient was seen and examined at bedside and overnight events noted. Patient denies any shortness of breath or chest pain or palpitation. No history of nausea or vomiting or diarrhea or fever or chills or cramps. OBJECTIVE: GENERAL: This is an obese female, in no apparent distress VITAL SIGNS: Temperature 97.4, pulse 70, respiratory rate 18, blood pressure 196/64. HEENT: Atraumatic, normocephalic, Oral mucosa is moist NECK: Supple CARDIOVASCULAR: S1S2 heard, Rate and rhythm regular RESPIRATORY: Clear to auscultation GASTROINTESTINAL: Abdomen is soft MUSCULOSKELETAL : No tenderness, No edema DERMATOLOGIC : No skin rash NEUROLOGIC: Alert and awake and oriented X3, No focal neurologic deficits. Moving all the extremities . PSYCHIATRIC: Mood and affect normal LABORATORY DATA: Potassium is 5.6, BUN 89, creatinine is 4.1. ASSESSMENT AND PLAN: 1. End-stage renal disease, started on hemodialysis during this admission. We will have catheter to day and we will have dialysis as tolerated. 2. Acidosis. 3. Severe hyperkalemia. 4. Type 2 diabetes, diabetic nephropathy. 5. Edema. We will remove fluid with dialysis. 6. Hypertension. We will remove fluid. 7. Anemia of chronic disease. We will start Epogen with dialysis. 8. I agree with blood transfusion. 9. Start dialysis and we will follow.
[2017-08-22] MEDS ORDERED: ePHEDrine/0.9% NaCl/PF SYRINGE 50 mg/10 ml ONE (15:41)
[2017-08-22] MEDS ORDERED: Lidocaine 1% PF 5 ML VIAL ONE (15:41)
[2017-08-22] MEDS ORDERED: PHENYLEPHRINE-NS 100 MCG/ML 10 ML SYRINGE ONE (15:41)
[2017-08-22] MEDS ORDERED: Ondansetron HCl/PF 4 MG/2 ML Vial ONE (15:41)
[2017-08-22] MEDS ORDERED: Propofol 200 MG/20 ML VIAL ONE (15:41)
[2017-08-22] MEDS ORDERED: Heparin 10,000 UNITS/1 ML VIAL ONE (16:39)
[2017-08-22] MEDS ORDERED: Bupivacaine/Epinephrine 0.25% 30 ML VIAL ONE (16:39)
[2017-08-22] MEDS ORDERED: Lidocaine 2% PF 5 ML VIAL ONE (16:39)
[2017-08-22] MEDS ORDERED: Sodium Chloride 0.9% 10 ML ONE (16:39)
[2017-08-22] MEDS ORDERED: Fentanyl 100 MCG/2 ML VIAL ONE (16:53)
[2017-08-22] MEDS ORDERED: HYDROmorphone 0.5 MG/0.5 ML SYRINGE ONE (16:56)
[2017-08-22] MEDS ORDERED: Promethazine HCl 25 MG/ML VIAL SLOW IVP PRN (17:58)
[2017-08-22] MEDS ORDERED: Morphine Sulfate 2 MG/ML SYRINGE SLOW IVP PRN (17:58)
[2017-08-22] MEDS ORDERED: HYDROmorphone 2 MG/ML VIAL SLOW IVP PRN (17:58)
[2017-08-22] MEDS ORDERED: Ondansetron HCl/PF 4 MG/2 ML Vial IVP PRN (17:58)
[2017-08-22] MEDS ORDERED: Promethazine HCl 25 MG/ML VIAL IM PRN (17:58)
--- NOTE | 2017-08-22 18:43 | OP ---
DATE OF PROCEDURE: 08/22/2017 PREOPERATIVE DIAGNOSES: Morbid obesity, metabolic syndrome, iatrogenic thrombosis, left antecubital veins secondary to IV access in a chronic renal patient, end-stage renal disease patient, metabolic s yndrome, morbid obesity, hypertension, diabetes, and poor IV access. PROCEDURES: Right IJ cuffed tunneled dialysis catheter, left IJ triple lumen catheter, ultrasound an d fluoroscopy used for placement. ANESTHESIA: General. Local 0.5% Marcaine with epinephrine, 30 mL, mixed with 1% Xylocaine with epin ephrine, 20 mL SURGEON: Morris Alberts M.D. DESCRIPTION OF PROCEDURE: The patient was taken to the operating room where under general anesthesia , neck and chest were prepared with ChloraPrep, draped in routine fashion. Local anesthetic infiltra nava into skin and subcutaneous tissue about the operative site. Trocar catheter cannulated to the ri ght and left internal jugular veins under ultrasound guidance. J-wire threaded, trocar catheter cruzito marin. Skin incised and enlarged sharply bilaterally. Stab incision made over the right chest for the hemodialysis catheter exit site. Seldinger technique used to place a left internal jugular vein tri ple lumen catheter, removing the J-wire, securing the catheter with sutures of 3-0 nylon. Each port aspirated blood and flushed with saline solution. Biopatch and sterile dressing applied. On the right side, the smaller medium sized dilators placed over the J-wire into the internal jugular vein and removed. Dilator and pull-away sheath placed into the superior vena cava and dilator and J -wire removed. Catheter placed with pull-away sheath, pull-away sheath removed. Platysma approximat ed with 4-0 Monocryl, skin with subdermal 4-0 Monocryl and DermaGlue and sterile dressing applied. F luoroscopic images revealed good line placement bilaterally. DermaGlue and sterile dressings applied . Each port aspirated blood and flushed with saline solution and heparinized saline solution 1000 un its heparin per mL indicated volume of the port.
--- NOTE | 2017-08-22 19:43 | RAD ---
RADIOGRAPH CHEST 1 VIEW: Date: 08/22/18 Time: 6:09 p.m. HISTORY: 61-year-old female with dyspnea and fluid volume overload. COMPARISON: 08/20/17 FINDINGS: There has been interval insertion of a right internal jugular double lumen dialysis catheter with dis amber port tips overlying the expected location of the SVC. There has been interval insertion of a cont ralateral left sided central vascular catheter in the neck, which crosses the midline, with distal ti p overlying the right atrium. The previously demonstrated patchy air space densities in the left mid and lower lung zones have slightly improved. There are new foci of subsegmental atelectasis in the le ft upper lobe. There is no evidence of pneumothorax. No rhonda pulmonary alveolar edema, although the pulmonary vasculature is prominent. Cardiac size is slightly prominent. Lateral costophrenic angles a re not effaced. IMPRESSION: 1. Interval placement of right internal jugular double lumen dialysis catheter. 2. Interval placement of left internal jugular central venous catheter. 3. Interval improvement in the air space densities in the left lower lobe. CHOCO [] POS: [facility]
[2017-08-22] MEDS: Gabapentin 100 MG CAP PO SCH (22:36)
[2017-08-23] MEDS: traMADol HCl 50 MG TAB PO PRN ×3 (02:53→22:13)
[2017-08-23 05:16] LABS: #Basophils 0.1 thou/uL (0.0-0.2); #Eosinphils 0.1 thou/uL (0.0-0.7); #Lymphocytes 1.9 thou/uL (1.20-3.40); #Monocytes 0.6 thou/uL (0.11-0.59); #Neutrophils 4.7 thou/uL (1.40-6.50); %Basophils 0.9 % (0.0-1.0); %Eosinophils 1.7 % (0.0-10.0); Hematocrit 21.3 % (36.0-47.0); Mean Platelet Volume 7.2 fL (7.4-10.4); Red Blood Cell (RBC) Count 2.36 mill/uL (4.20-5.40); White Blood Cell (WBC) Count 7.4 thou/uL (4.8-10.8)
[2017-08-23 05:27] LABS: Anion Gap 12 mmol/L (10-20); BUN (Urea Nitrogen) 68 mg/dL (9.8-20.1); Calc. Creatinine Clearance 25 mL/min (70-130); Calcium 7.7 mg/dL (7.8-10.44); Carbon Dioxide 24 mmol/L (23-31); Chloride 108 mmol/L (98-107); Estimated GFR-MDRD 14
[2017-08-23] MEDS: Furosemide 100 MG/10 ML VIAL SLOW IVP SCH ×2 (06:40→14:02)
[2017-08-23] MEDS: Acetaminophen 500 MG TAB PO PRN (06:40)
--- NOTE | 2017-08-23 09:03 | PRG ---
DATE OF SERVICE: 08/23/2017 SUBJECTIVE: Patient was seen and examined at bedside and overnight events noted. Patient denies any shortness of breath or chest pain or palpitation. No history of nausea or vomiting or diarrhea or f ever or chills or cramps. OBJECTIVE: GENERAL: This is a morbidly obese female in no apparent distress. VITAL SIGNS: Temperature 98.3, pulse 70, respiratory rate 14, blood pressure 126/69. HEENT: Atraumatic, normocephalic. Oral mucosa is moist. NECK: Supple. CARDIOVASCULAR: S1, S2 heard. Rate and rhythm regular. RESPIRATORY: Clear to auscultation. GASTROINTESTINAL: Abdomen is soft. MUSCULOSKELETAL: No tenderness. No edema. DERMATOLOGIC: No skin rash. NEUROLOGIC: Alert and awake and oriented x3. No focal neurologic deficits. Moving all the extremiti es. PSYCHIATRIC: Mood and affect normal. LABORATORY DATA: Potassium is 4.6, BUN is 68, creatinine is 3.4. ASSESSMENT AND PLAN: 1. End-stage renal disease. Continue on dialysis as tolerated. 2. Fluid overload with edema. 3. Type 2 diabetes with diabetic nephropathy. 4. Hypertension, stable. 5. Edema. We will remove fluid. 6. Anemia, continue Epogen. Plan is to continue on dialysis as tolerated.
[2017-08-23] MEDS: hydrALAZINE 25 MG TAB PO SCH ×2 (11:30→21:58)
[2017-08-23] MEDS: cloNIDine 0.1 MG TAB PO SCH ×2 (11:30→21:59)
[2017-08-23] MEDS: Atorvastatin Calcium 40 MG TAB PO SCH (11:30)
[2017-08-23] MEDS: predniSONE 5 MG TAB PO SCH (11:30)
[2017-08-23] MEDS: Famotidine 20 MG TAB PO SCH (11:30)
[2017-08-23] MEDS: Carvedilol 25 MG TAB PO SCH ×2 (11:31→21:59)
[2017-08-23] MEDS: Ferrous Sulfate 325 MG TAB PO SCH (11:31)
[2017-08-23] MEDS: Amlodipine 10 MG TAB PO SCH (11:32)
[2017-08-23] MEDS: Metolazone 5 MG TAB PO SCH (11:32)
[2017-08-23] MEDS: Aspirin 81 mg Enteric Coated Tablet PO SCH (11:33)
--- NOTE | 2017-08-23 11:48 | PDOC.PN ---
- Subjective Encounter Start Date: 08/23/17 Encounter Start Time: 10:30 Subjective: no sob, getting HD - Objective Resuscitation Status: Resuscitation Status FULL:Full Resuscitation MAR Reviewed: Yes Vital Signs & Weight: Vital Signs (12 hours) Temp Pulse Resp BP BP Pulse Ox 08/23/17 11:32 78 161/78 H 08/23/17 11:30 78 161/74 H 08/23/17 05:10 98.3 F 78 14 126/69 95 08/23/17 00:00 98.2 F 73 12 119/62 97 Weight Weight 205 lb 3 oz I&O: 08/22/17 08/23/17 08/24/17 06:59 06:59 06:59 Intake Total 1000 700 350 Balance 1000 700 350 Result Diagrams: 08/23/17 05:00 08/23/17 05:00 Additional Labs: Accuchecks 08/23/17 08/23/17 08/22/17 11:19 04:02 21:25 POC Glucose 195 H 280 H 106 08/22/17 08/22/17 08/22/17 16:39 15:25 13:12 POC Glucose 118 H 133 H 85 08/22/17 08/22/17 08:21 07:58 POC Glucose 63 L 62 L Phys Exam - Physical Examination HEENT: PERRLA, moist MMs Neck: no JVD, supple Respiratory: no wheezing, no rales Cardiovascular: RRR, no significant murmur Gastrointestinal: soft, non-tender, positive bowel sounds Musculoskeletal: pulses present, edema present Neurological: non-focal, moves all 4 limbs Psychiatric: A&O x 3 Dx/Plan (1) Acute on chronic renal failure Code(s): N17.9 - ACUTE KIDNEY FAILURE, UNSPECIFIED; N18.9 - CHRONIC KIDNEY DISEASE, UNSPECIFIED Status: Acute Comment: initiated on HD (2) Metabolic acidosis Code(s): E87.2 - ACIDOSIS Status: Acute (3) COPD (chronic obstructive pulmonary disease) Status: Acute Qualifiers: COPD type: chronic bronchitis (4) Diabetes Code(s): E11.9 - TYPE 2 DIABETES MELLITUS WITHOUT COMPLICATIONS Status: Chronic Qualifiers: Diabetes mellitus type: type 2 Diabetes mellitus complication status: with kidney complications Diabetes mellitus complication detail: with chronic kidney disease Diabetes mellitus intermediate project manager insulin use: with intermediate project manager use Chronic kidney disease stage: stage 3 (moderate) Qualified Code(s): E11.22 - Type 2 diabetes mellitus with diabetic chronic kidney disease; N18.3 - Chronic kidney disease, stage 3 (moderate); N18.3 - Chronic kidney disease, stage 3 ( moderate); Z79.4 - joint terminal attack controller (current) use of insulin; Z79.4 - joint terminal attack controller ( current) use of insulin; Z79.4 - joint terminal attack controller (current) use of insulin; Z79.4 - detention (current) use of insulin (5) CKD (chronic kidney disease) stage 3, GFR 30-59 ml/min Status: Chronic (6) Chronic anemia Code(s): D64.9 - ANEMIA, UNSPECIFIED Status: Chronic Comment: sec to ckd (7) Dyslipidemia Code(s): E78.5 - HYPERLIPIDEMIA, UNSPECIFIED Status: Chronic (8) HTN (hypertension) Code(s): I10 - ESSENTIAL (PRIMARY) HYPERTENSION Status: Chronic Qualifiers: Hypertension type: essential hypertension Qualified Code(s): I10 - Essential (primary) hypertension (9) Hypoalbuminemia Code(s): E88.09 - OTH DISORDERS OF PLASMA-PROTEIN METABOLISM, NEC Status: Chronic Comment: due to renal wasting from ckd and diabetic nephropathy - Plan has been initiated on HD, will need outpt chair -: h/h stable -: may dc lasix if ok with nephrology -: continue metoprolol and oral prednisone -: Has right IJ tunnelled HD cath and left central line IJ * . Review of Systems - Medications/Allergies Allergies/Adverse Reactions: Allergies Allergy/AdvReac Type Severity Reaction Status Date / Time No Known Allergies Allergy Verified 08/21/17 03:18 Medications: Current Medications Acetaminophen (Tylenol) 1,000 mg PO Q6H PRN PRN Reason: Headache/Fever or Mild Pain Last Admin: 08/23/17 06:40 Dose: 1,000 mg Albuterol Sulfate (Proventil Hfa) 2 puff INH Q6H PRN PRN Reason: SOB &/or Wheezing Amlodipine Besylate (Norvasc) 10 mg PO DAILY [facility] Last Admin: 08/23/17 11:32 Dose: 10 mg Aspirin (Ecotrin) 81 mg PO DAILY [facility] Last Admin: 08/23/17 11:33 Dose: 81 mg Atorvastatin Calcium (Lipitor) 40 mg PO DAILY [facility] Last Admin: 08/23/17 11:30 Dose: 40 mg Carvedilol (Coreg) 6.25 mg PO BID [facility] Last Admin: 08/23/17 11:31 Dose: 6.25 mg Clonidine (Catapres) 0.1 mg PO Q4H PRN PRN Reason: Systolic BP > 180 Clonidine (Catapres) 0.1 mg PO BID [facility] Last Admin: 08/23/17 11:30 Dose: 0.1 mg Dextrose/Water (Dextrose 50%) 25 gm SLOW IVP PRN PRN PRN Reason: Hypoglycemia Last Admin: 08/22/17 14:28 Dose: 25 gm Epoetin Khanh (Procrit) 10,000 units IVP MoWeFr@0900 [facility] Famotidine (Pepcid) 20 mg PO DAILY [facility] Last Admin: 08/23/17 11:30 Dose: 20 mg Ferrous Sulfate (Feosol) 650 mg PO QAM-WM [facility] Last Admin: 08/23/17 11:31 Dose: 650 mg Furosemide (Lasix) 80 mg SLOW IVP 0600,1400 [facility] Last Admin: 08/23/17 06:40 Dose: Not Given Gabapentin (Neurontin) 200 mg PO HS [facility] Last Admin: 08/22/17 22:36 Dose: 200 mg Glucagon (Glucagon) 1 mg IM PRN PRN PRN Reason: Hypoglycemia Hydralazine HCl (Apresoline) 10 mg SLOW IVP Q4H PRN PRN Reason: Systolic BP > 180 Hydralazine HCl (Apresoline) 25 mg PO BID [facility] Last Admin: 08/23/17 11:30 Dose: 25 mg Dextrose/Water (D5w) 1,000 mls @ 0 mls/hr IV .Q0M PRN; As Directed PRN Reason: Hypoglycemia Insulin Human Lispro (Humalog) 0 units SC .MODERATE SLIDING SC PRN PRN Reason: Moderate Correctional Scale Insulin Human Lispro (Humalog) 0 units SC .BEDTIME SLIDING SC PRN PRN Reason: Bedtime Correctional Scale Metolazone (Zaroxolyn) 5 mg PO 0830 [facility] Last Admin: 08/23/17 11:32 Dose: 5 mg Ondansetron HCl (Zofran Odt) 4 mg PO Q6H PRN PRN Reason: Nausea/Vomiting Ondansetron HCl (Zofran) 4 mg IVP Q6H PRN PRN Reason: Nausea/Vomiting Prednisone (Prednisone) 5 mg PO QAM-WM [facility] Last Admin: 08/23/17 11:30 Dose: 5 mg Ropinirole HCl (Requip) 1 mg PO HSPRN PRN PRN Reason: Restlessness Sodium Chloride (Flush - Normal Saline) 10 ml IVF PRN PRN PRN Reason: Saline Flush Sodium Chloride (Flush - Normal Saline) 10 ml IVF PRN PRN PRN Reason: Saline Flush Tramadol HCl (Ultram) 50 mg PO TIDPRN PRN PRN Reason: Moderate to Severe Pain (6-10) Last Admin: 08/23/17 02:53 Dose: 50 mg Tuberculin PPD (Aplisol) 0.1 ml I-DERMAL ONE [facility] Stop: 08/25/17 15:16 Last Admin: 08/23/17 06:52 Dose: 0.1 ml
[2017-08-23] MEDS: HumaLOG 300 UNITS/3 ML VIAL SC PRN ×2 (16:32→22:08)
--- NOTE | 2017-08-23 20:12 | PRG ---
DATE OF SERVICE: 08/23/2017 SUBJECTIVE: Ms. Feng doing well. She is tolerating dialysis. Plan is for right-arm dialysis [facility] on Friday. Dialysis should be avoided on Friday morning.
--- NOTE | 2017-08-23 20:45 | PRG ---
DATE OF SERVICE: 08/23/2017 Ashely Feng is doing well today. She has been undergoing dialysis and tolerating it well. She is scheduled for Friday for a right arm fistula. I have discussed this with her today and she consents. She will have a Hibiclens shower Friday night. We should plan to avoid dialysis Friday morning til l after her surgery.
[2017-08-23] MEDS: Gabapentin 100 MG CAP PO SCH (21:57)
[2017-08-24] MEDS: HumaLOG 300 UNITS/3 ML VIAL SC PRN ×3 (06:42→21:10)
[2017-08-24] MEDS: Furosemide 100 MG/10 ML VIAL SLOW IVP SCH ×2 (07:18→13:08)
[2017-08-24] MEDS: Carvedilol 25 MG TAB PO SCH ×2 (09:05→20:51)
[2017-08-24] MEDS: Atorvastatin Calcium 40 MG TAB PO SCH (09:05)
[2017-08-24] MEDS: Amlodipine 10 MG TAB PO SCH (09:05)
[2017-08-24] MEDS: Ferrous Sulfate 325 MG TAB PO SCH (09:05)
[2017-08-24] MEDS: Metolazone 5 MG TAB PO SCH (09:05)
[2017-08-24] MEDS: Aspirin 81 mg Enteric Coated Tablet PO SCH (09:05)
[2017-08-24] MEDS: cloNIDine 0.1 MG TAB PO SCH ×2 (09:05→20:50)
[2017-08-24] MEDS: predniSONE 5 MG TAB PO SCH (09:05)
[2017-08-24] MEDS: Famotidine 20 MG TAB PO SCH (09:06)
[2017-08-24] MEDS: hydrALAZINE 25 MG TAB PO SCH ×2 (09:06→20:52)
[2017-08-24] MEDS: traMADol HCl 50 MG TAB PO PRN (10:03)
[2017-08-24] MEDS ORDERED: Heparin 1,000 UNITS/ML VIAL ONE ×2 (11:11)
--- NOTE | 2017-08-24 11:57 | PDOC.PN ---
- Subjective Encounter Start Date: 08/24/17 Encounter Start Time: 11:00 Subjective: feels better, no sob. - Objective Resuscitation Status: Resuscitation Status FULL:Full Resuscitation MAR Reviewed: Yes Vital Signs & Weight: Vital Signs (12 hours) Temp Pulse Resp BP BP Pulse Ox 08/24/17 09:06 72 08/24/17 09:05 72 152/78 H 08/24/17 08:00 98.3 F 72 16 08/24/17 07:56 98.3 F 72 16 135/68 97 Weight Weight 205 lb 3 oz I&O: 08/23/17 08/24/17 08/25/17 06:59 06:59 06:59 Intake Total 700 650 Output Total 2000 Balance 700 -1350 Result Diagrams: 08/23/17 05:00 08/23/17 05:00 Additional Labs: Accuchecks 08/24/17 08/24/17 08/23/17 11:44 06:27 20:49 POC Glucose 199 H 294 H 350 H 08/23/17 16:11 POC Glucose 334 H Phys Exam - Physical Examination HEENT: PERRLA, moist MMs Neck: no JVD, supple Respiratory: no wheezing, no rales Cardiovascular: RRR, no significant murmur Gastrointestinal: soft, non-tender, positive bowel sounds Musculoskeletal: pulses present, edema present Neurological: non-focal, moves all 4 limbs Psychiatric: A&O x 3 Dx/Plan (1) Acute on chronic renal failure Code(s): N17.9 - ACUTE KIDNEY FAILURE, UNSPECIFIED; N18.9 - CHRONIC KIDNEY DISEASE, UNSPECIFIED Status: Acute Comment: initiated on HD (2) Metabolic acidosis Code(s): E87.2 - ACIDOSIS Status: Acute (3) COPD (chronic obstructive pulmonary disease) Status: Acute Qualifiers: COPD type: chronic bronchitis (4) Diabetes Code(s): E11.9 - TYPE 2 DIABETES MELLITUS WITHOUT COMPLICATIONS Status: Chronic Qualifiers: Diabetes mellitus type: type 2 Diabetes mellitus complication status: with kidney complications Diabetes mellitus complication detail: with chronic kidney disease Diabetes mellitus custodial insulin use: with custodial use Chronic kidney disease stage: stage 3 (moderate) Qualified Code(s): E11.22 - Type 2 diabetes mellitus with diabetic chronic kidney disease; N18.3 - Chronic kidney disease, stage 3 (moderate); N18.3 - Chronic kidney disease, stage 3 ( moderate); Z79.4 - assisted (current) use of insulin; Z79.4 - terminal operations manager ( current) use of insulin; Z79.4 - terminal operations manager (current) use of insulin; Z79.4 - terminal operations manager (current) use of insulin (5) CKD (chronic kidney disease) stage 3, GFR 30-59 ml/min Status: Chronic (6) Chronic anemia Code(s): D64.9 - ANEMIA, UNSPECIFIED Status: Chronic Comment: sec to ckd (7) Dyslipidemia Code(s): E78.5 - HYPERLIPIDEMIA, UNSPECIFIED Status: Chronic (8) HTN (hypertension) Code(s): I10 - ESSENTIAL (PRIMARY) HYPERTENSION Status: Chronic Qualifiers: Hypertension type: essential hypertension Qualified Code(s): I10 - Essential (primary) hypertension (9) Hypoalbuminemia Code(s): E88.09 - OTH DISORDERS OF PLASMA-PROTEIN METABOLISM, NEC Status: Chronic Comment: due to renal wasting from ckd and diabetic nephropathy - Plan had 3 hour session of HD yesterday -: is going for HD today -: tolerating HD sessions -: outpt HD chair to be set up -: is amb in room, nava dunlap to LE * . Review of Systems - Medications/Allergies Allergies/Adverse Reactions: Allergies Allergy/AdvReac Type Severity Reaction Status Date / Time No Known Allergies Allergy Verified 08/21/17 03:18 Medications: Current Medications Acetaminophen (Tylenol) 1,000 mg PO Q6H PRN PRN Reason: Headache/Fever or Mild Pain Last Admin: 08/23/17 06:40 Dose: 1,000 mg Albuterol Sulfate (Proventil Hfa) 2 puff INH Q6H PRN PRN Reason: SOB &/or Wheezing Amlodipine Besylate (Norvasc) 10 mg PO DAILY [facility] Last Admin: 08/24/17 09:05 Dose: Not Given Aspirin (Ecotrin) 81 mg PO DAILY [facility] Last Admin: 08/24/17 09:05 Dose: Not Given Atorvastatin Calcium (Lipitor) 40 mg PO DAILY [facility] Last Admin: 08/24/17 09:05 Dose: Not Given Carvedilol (Coreg) 6.25 mg PO BID [facility] Last Admin: 08/24/17 09:05 Dose: Not Given Clonidine (Catapres) 0.1 mg PO Q4H PRN PRN Reason: Systolic BP > 180 Clonidine (Catapres) 0.1 mg PO BID [facility] Last Admin: 08/24/17 09:05 Dose: Not Given Dextrose/Water (Dextrose 50%) 25 gm SLOW IVP PRN PRN PRN Reason: Hypoglycemia Last Admin: 08/22/17 14:28 Dose: 25 gm Epoetin Khanh (Procrit) 10,000 units IVP MoWeFr@0900 [facility] Famotidine (Pepcid) 20 mg PO DAILY [facility] Last Admin: 08/24/17 09:06 Dose: Not Given Ferrous Sulfate (Feosol) 650 mg PO QAM-[facility] Last Admin: 08/24/17 09:05 Dose: Not Given Furosemide (Lasix) 80 mg SLOW IVP 0600,1400 [facility] Last Admin: 08/24/17 07:18 Dose: Not Given Gabapentin (Neurontin) 200 mg PO HS [facility] Last Admin: 08/23/17 21:57 Dose: 200 mg Glucagon (Glucagon) 1 mg IM PRN PRN PRN Reason: Hypoglycemia Hydralazine HCl (Apresoline) 10 mg SLOW IVP Q4H PRN PRN Reason: Systolic BP > 180 Hydralazine HCl (Apresoline) 25 mg PO BID [facility] Last Admin: 08/24/17 09:06 Dose: Not Given Dextrose/Water (D5w) 1,000 mls @ 0 mls/hr IV .Q0M PRN; As Directed PRN Reason: Hypoglycemia Insulin Human Lispro (Humalog) 0 units SC .MODERATE SLIDING SC PRN PRN Reason: Moderate Correctional Scale Last Admin: 08/24/17 11:47 Dose: 6 unit Insulin Human Lispro (Humalog) 0 units SC .BEDTIME SLIDING SC PRN PRN Reason: Bedtime Correctional Scale Last Admin: 08/23/17 22:08 Dose: 4 unit Metolazone (Zaroxolyn) 5 mg PO 0830 [facility] Last Admin: 08/24/17 09:05 Dose: Not Given Ondansetron HCl (Zofran Odt) 4 mg PO Q6H PRN PRN Reason: Nausea/Vomiting Ondansetron HCl (Zofran) 4 mg IVP Q6H PRN PRN Reason: Nausea/Vomiting Prednisone (Prednisone) 5 mg PO QAM-WM [facility] Last Admin: 08/24/17 09:05 Dose: Not Given Ropinirole HCl (Requip) 1 mg PO HSPRN PRN PRN Reason: Restlessness Sodium Chloride (Flush - Normal Saline) 10 ml IVF PRN PRN PRN Reason: Saline Flush Sodium Chloride (Flush - Normal Saline) 10 ml IVF PRN PRN PRN Reason: Saline Flush Tramadol HCl (Ultram) 50 mg PO TIDPRN PRN PRN Reason: Moderate to Severe Pain (6-10) Last Admin: 08/24/17 10:03 Dose: 50 mg Tuberculin PPD (Aplisol) 0.1 ml I-DERMAL ONE [facility] Stop: 08/25/17 15:16 Last Admin: 08/23/17 06:52 Dose: 0.1 ml
--- NOTE | 2017-08-24 14:10 | PRG ---
DATE OF SERVICE: 08/25/2017 SUBJECTIVE: Patient was seen and examined at bedside and overnight events noted. Patient denies any shortness of breath or chest pain or palpitation. No history of nausea or vomiting or diarrhea or f ever or chills or cramps. OBJECTIVE: GENERAL: This is a morbidly obese female in no apparent distress. VITAL SIGNS: Temperature 98.3, pulse 78, respiratory rate 16, blood pressure 152/70. HEENT: Atraumatic, normocephalic. Oral mucosa is moist. NECK: Supple. CARDIOVASCULAR: S1, S2 heard. Rate and rhythm regular. RESPIRATORY: Clear to auscultation. GASTROINTESTINAL: Abdomen is soft. MUSCULOSKELETAL: No tenderness. No edema. DERMATOLOGIC: No skin rash. NEUROLOGIC: Alert and awake and oriented x3. No focal neurologic deficits. Moving all the extremiti es. PSYCHIATRIC: Mood and affect normal. LABORATORY DATA: Not done today. ASSESSMENT AND PLAN: 1. End-stage renal disease. We will have dialysis today and continue dialysis Tuesdays, , and Saturdays. 2. Fluid overload with edema. 3. Type 2 diabetes. 4. Hypertension. 5. Edema. 6. Anemia. Plan is to continue on dialysis as tolerated with ultrafiltration today.
[2017-08-24] MEDS: Gabapentin 100 MG CAP PO SCH (20:52)
[2017-08-25] MEDS: Furosemide 100 MG/10 ML VIAL SLOW IVP SCH ×2 (05:26→14:46)
[2017-08-25] MEDS: Carvedilol 25 MG TAB PO SCH ×2 (07:03→21:04)
[2017-08-25] MEDS: predniSONE 5 MG TAB PO SCH (07:28)
[2017-08-25] MEDS: Amlodipine 10 MG TAB PO SCH (07:28)
[2017-08-25] MEDS: Metolazone 5 MG TAB PO SCH (07:28)
[2017-08-25] MEDS: Ferrous Sulfate 325 MG TAB PO SCH (07:28)
[2017-08-25] MEDS: cloNIDine 0.1 MG TAB PO SCH ×2 (07:29→21:05)
[2017-08-25] MEDS: Famotidine 20 MG TAB PO SCH (07:29)
[2017-08-25] MEDS: Aspirin 81 mg Enteric Coated Tablet PO SCH (07:29)
[2017-08-25] MEDS: Atorvastatin Calcium 40 MG TAB PO SCH (07:29)
[2017-08-25] MEDS: hydrALAZINE 25 MG TAB PO SCH ×2 (07:30→21:06)
[2017-08-25] MEDS ORDERED: Bupivacaine HCl 0.5%/Epinephrine 1:200,000/PF 30 ml Vial ONE (08:39)
[2017-08-25] MEDS ORDERED: Protamine Sulfate 50 MG/5 ML VIAL ONE ×2 (10:36→12:22)
[2017-08-25] MEDS ORDERED: Heparin 10,000 UNITS/ 10 ML VIAL ONE (10:36)
[2017-08-25] MEDS: Epoetin (ESRD) 10,000 UNITS/ML VIAL IVP SCH (10:46)
--- NOTE | 2017-08-25 11:23 | PRG ---
DATE OF SERVICE: 08/25/2017 SUBJECTIVE: A 62-year-old female being seen for end-stage renal disease. The patient denies any nausea, vomiting or chest pain. PHYSICAL EXAMINATION: GENERAL: The patient is awake, alert. VITAL SIGNS: Afebrile, pulse 75, breathing 16, blood pressure was 152/70. HEAD/NECK: Normocephalic. Atraumatic. EYES: EOMI. No deformity. EARS: Clear. No ulcers. NOSE: Intact. No lesions. MOUTH: Clear. No discharge. THROAT: Clear. No exudate. LUNGS: Clear. No crackles. CARDIAC: S1, S2. No rub. ABDOMEN: Benign. BS+. GENITALIA/RECTUM: Martin absent. BACK/EXTREMITIES: Edema 0+ Ulcer- NEUROLOGICAL: Alert and motor intact. SKIN: Rash- Bruise. LYMPHATICS: Edema- Ulcer- LABORATORY: None today. ASSESSMENT: 1. Stage 6 chronic kidney disease, on hemodialysis. 2. Hypertension, stable. 3. Anemia. We will recheck stat hemoglobin and we will plan dialysis today. ERICKSON
[2017-08-25] MEDS ORDERED: Fentanyl 100 MCG/2 ML VIAL ONE ×2 (11:51→12:24)
[2017-08-25] MEDS ORDERED: Midazolam HCl 2 mg/2 ml Vial ONE ×2 (11:51→12:25)
[2017-08-25] MEDS ORDERED: EPINEPHrine 1 MG/ML AMP ONE (11:55)
[2017-08-25] MEDS ORDERED: Heparin 5,000 UNITS/ML VIAL ONE (12:22)
[2017-08-25] MEDS ORDERED: Propofol 1,000 MG/100 ML VIAL IV ONE (12:24)
[2017-08-25] MEDS ORDERED: Lidocaine 1% w/Epinephrine 1:200K 30 ML VIAL ONE (12:27)
[2017-08-25] MEDS ORDERED: Bupivacaine 0.25% HCL 30 ML VIAL ONE (12:27)
[2017-08-25] MEDS ORDERED: CEFAZOLIN/Water 2 GM/20 ML SYRINGE ONE (12:36)
--- NOTE | 2017-08-25 12:57 | PDOC.PN ---
- Subjective Encounter Start Date: 08/25/17 Encounter Start Time: 11:15 Subjective: feeling better, no sob -: is npo for fistula placement today - Objective Resuscitation Status: Resuscitation Status FULL:Full Resuscitation MAR Reviewed: Yes Vital Signs & Weight: Vital Signs (12 hours) Temp Pulse Resp BP BP Pulse Ox 08/25/17 11:49 98.4 F 72 16 169/70 H 98 08/25/17 07:30 98.4 F 75 16 152/78 H 08/25/17 07:29 152/78 H 08/25/17 07:28 75 08/25/17 07:13 98.4 F 75 16 172/70 H 97 Weight Weight 205 lb 3 oz I&O: 08/24/17 08/25/17 08/26/17 06:59 06:59 06:59 Intake Total 650 Output Total 1999 Balance -1350 Result Diagrams: 08/23/17 05:00 08/23/17 05:00 Additional Labs: Accuchecks 08/25/17 08/25/17 08/24/17 11:04 06:07 21:01 POC Glucose 263 H 284 H 337 H 08/24/17 18:45 POC Glucose 202 H Phys Exam - Physical Examination HEENT: PERRLA, moist MMs Neck: no JVD, supple Respiratory: no wheezing, no rales Cardiovascular: RRR, no significant murmur Gastrointestinal: soft, non-tender, positive bowel sounds Musculoskeletal: pulses present, edema present Neurological: non-focal, moves all 4 limbs Psychiatric: A&O x 3 Dx/Plan (1) Acute on chronic renal failure Code(s): N17.9 - ACUTE KIDNEY FAILURE, UNSPECIFIED; N18.9 - CHRONIC KIDNEY DISEASE, UNSPECIFIED Status: Acute Comment: initiated on HD (2) Metabolic acidosis Code(s): E87.2 - ACIDOSIS Status: Resolved (3) COPD (chronic obstructive pulmonary disease) Status: Chronic Qualifiers: COPD type: chronic bronchitis (4) Diabetes Code(s): E11.9 - TYPE 2 DIABETES MELLITUS WITHOUT COMPLICATIONS Status: Chronic Qualifiers: Diabetes mellitus type: type 2 Diabetes mellitus complication status: with kidney complications Diabetes mellitus complication detail: with chronic kidney disease Diabetes mellitus ad terminal makeup operator insulin use: with ad terminal makeup operator use Chronic kidney disease stage: stage 3 (moderate) Qualified Code(s): E11.22 - Type 2 diabetes mellitus with diabetic chronic kidney disease; N18.3 - Chronic kidney disease, stage 3 (moderate); N18.3 - Chronic kidney disease, stage 3 ( moderate); Z79.4 - [facility] (current) use of insulin; Z79.4 - bed bug exterminator ( current) use of insulin; Z79.4 - [facility] (current) use of insulin; Z79.4 - bed bug exterminator (current) use of insulin (5) CKD (chronic kidney disease) stage 3, GFR 30-59 ml/min Status: Chronic (6) Chronic anemia Code(s): D64.9 - ANEMIA, UNSPECIFIED Status: Chronic Comment: sec to ckd (7) Dyslipidemia Code(s): E78.5 - HYPERLIPIDEMIA, UNSPECIFIED Status: Chronic (8) HTN (hypertension) Code(s): I10 - ESSENTIAL (PRIMARY) HYPERTENSION Status: Chronic Qualifiers: Hypertension type: essential hypertension Qualified Code(s): I10 - Essential (primary) hypertension (9) Hypoalbuminemia Code(s): E88.09 - OTH DISORDERS OF PLASMA-PROTEIN METABOLISM, NEC Status: Chronic Comment: due to renal wasting from ckd and diabetic nephropathy - Plan awaiting outpt HD chair -: needs to wear compression stockings on her legs -: HD schedule per nephrology advice -: to amb in room and hallway as tolerated * . Review of Systems - Medications/Allergies Allergies/Adverse Reactions: Allergies Allergy/AdvReac Type Severity Reaction Status Date / Time No Known Allergies Allergy Verified 08/21/17 03:18 Medications: Current Medications Acetaminophen (Tylenol) 1,000 mg PO Q6H PRN PRN Reason: Headache/Fever or Mild Pain Last Admin: 08/23/17 06:40 Dose: 1,000 mg Albuterol Sulfate (Proventil Hfa) 2 puff INH Q6H PRN PRN Reason: SOB &/or Wheezing Amlodipine Besylate (Norvasc) 10 mg PO DAILY [facility] Last Admin: 08/25/17 07:28 Dose: Not Given Aspirin (Ecotrin) 81 mg PO DAILY [facility] Last Admin: 08/25/17 07:29 Dose: Not Given Atorvastatin Calcium (Lipitor) 40 mg PO DAILY [facility] Last Admin: 08/25/17 07:29 Dose: Not Given Carvedilol (Coreg) 6.25 mg PO BID [facility] Last Admin: 08/25/17 07:03 Dose: 6.25 mg Clonidine (Catapres) 0.1 mg PO Q4H PRN PRN Reason: Systolic BP > 180 Clonidine (Catapres) 0.1 mg PO BID [facility] Last Admin: 08/25/17 07:29 Dose: Not Given Dextrose/Water (Dextrose 50%) 25 gm SLOW IVP PRN PRN PRN Reason: Hypoglycemia Last Admin: 08/22/17 14:28 Dose: 25 gm Epoetin Khanh (Procrit) 10,000 units IVP MoWeFr@0900 [facility] Last Admin: 08/25/17 10:46 Dose: 10,000 units Famotidine (Pepcid) 20 mg PO DAILY [facility] Last Admin: 08/25/17 07:29 Dose: Not Given Ferrous Sulfate (Feosol) 650 mg PO QAM-[facility] Last Admin: 08/25/17 07:28 Dose: Not Given Furosemide (Lasix) 80 mg SLOW IVP 0600,1400 [facility] Last Admin: 08/25/17 05:26 Dose: 80 mg Gabapentin (Neurontin) 200 mg PO HS [facility] Last Admin: 08/24/17 20:52 Dose: 200 mg Glucagon (Glucagon) 1 mg IM PRN PRN PRN Reason: Hypoglycemia Hydralazine HCl (Apresoline) 10 mg SLOW IVP Q4H PRN PRN Reason: Systolic BP > 180 Hydralazine HCl (Apresoline) 25 mg PO BID [facility] Last Admin: 08/25/17 07:30 Dose: Not Given Dextrose/Water (D5w) 1,000 mls @ 0 mls/hr IV .Q0M PRN; As Directed PRN Reason: Hypoglycemia Insulin Human Lispro (Humalog) 0 units SC .MODERATE SLIDING SC PRN PRN Reason: Moderate Correctional Scale Last Admin: 08/24/17 11:47 Dose: 6 unit Insulin Human Lispro (Humalog) 0 units SC .BEDTIME SLIDING SC PRN PRN Reason: Bedtime Correctional Scale Last Admin: 08/24/17 21:10 Dose: 4 unit Metolazone (Zaroxolyn) 5 mg PO 0830 [facility] Last Admin: 08/25/17 07:28 Dose: Not Given Ondansetron HCl (Zofran Odt) 4 mg PO Q6H PRN PRN Reason: Nausea/Vomiting Ondansetron HCl (Zofran) 4 mg IVP Q6H PRN PRN Reason: Nausea/Vomiting Prednisone (Prednisone) 5 mg PO QAM-WM [facility] Last Admin: 08/25/17 07:28 Dose: Not Given Ropinirole HCl (Requip) 1 mg PO HSPRN PRN PRN Reason: Restlessness Sodium Chloride (Flush - Normal Saline) 10 ml IVF PRN PRN PRN Reason: Saline Flush Sodium Chloride (Flush - Normal Saline) 10 ml IVF PRN PRN PRN Reason: Saline Flush Tramadol HCl (Ultram) 50 mg PO TIDPRN PRN PRN Reason: Moderate to Severe Pain (6-10) Last Admin: 08/24/17 10:03 Dose: 50 mg Tuberculin PPD (Aplisol) 0.1 ml I-DERMAL ONE [facility] Stop: 08/25/17 15:16 Last Admin: 08/23/17 06:52 Dose: 0.1 ml
--- NOTE | 2017-08-25 14:43 | OP ---
DATE OF PROCEDURE: 08/25/2017 PREOPERATIVE DIAGNOSES: End-stage renal disease in need of dialysis access. Nonocclusive thrombus seen on ultrasound POSTOPERATIVE DIAGNOSIS: End-stage renal disease in need of dialysis access. Nonocclusive thrombus seen on ultrasound PROCEDURES PERFORMED: Right arm primary arteriovenous fistula, perforating branch antecubital vein t o the proximal radial artery outflow primarily cephalic vein calibrated to a 3.5 mm coronary dilator. Secondary outflow basilic vein, retrograde antecubital vein preserved. Thrombectomy without return of thrombus. Good Doppler signal. ANESTHESIA: Regional TIVA. SURGEON: Morris Alberts M.D. SURGEON ESTIMATED BLOOD LOSS: 30 Ml. PROCEDURE: Patient taken to the operating room where under intravenous sedation and regional anesthe jacklyn, the right upper extremity was prepared with ChloraPrep, draped in routine fashion. Local anesth etic infiltrated into skin and subcutaneous tissue about the operative site. Incision made in the pr oximal volar forearm longitudinally, carried down through the skin and subcutaneous tissue. The ante cubital vein and cephalic vein dissected free. There was a small communicating branch to the basilic vein, perforating branch was of excellent caliber, dissected free. Branches divided between 4-0 sandhya k ties and clips. It was spatulated over a branch point and interrogated with coronary dilators, [place] coronary dilators from a 2 mm to a 3.5 mm coronary dilator unobstructed to the cephalic vein out flow. Five Fogerty catheter passed without obstruction without return of thrombus due to preoperativ e ultrasound suggesting nonocclusive thrombus. Patient had antecubital IV access unfortunately prior . The patient was given 5000 units of heparin intravenously. After adequate circulation time, the b rachial, radial, and ulnar arteries clamped and longitudinal arteriotomy made on the distal brachial artery, and radial artery and elongated with the Estevez scissors to 2.5 cm anastomosis. The perforati ng branch of the antecubital vein anastomosed to the proximal and brachial, radial artery with contin uous suture of 6-0 Prolene. After completing the anastomosis, vascular clamps were released. The pa tient was given 25 mg of protamine by Anesthesia. Surgicel applied. Good hemostasis noted. There w as good Doppler signal on the outflow. Skin and subcutaneous tissues approximated with 3-0 Monocryl, skin with subdermal 4-0 Monocryl and DermaGlue applied.
[2017-08-25] MEDS: HumaLOG 300 UNITS/3 ML VIAL SC PRN ×2 (16:10→21:14)
[2017-08-25 17:49] LABS: Hematocrit 27.9 % (36.0-47.0)
[2017-08-25] MEDS: Gabapentin 100 MG CAP PO SCH (21:06)
[2017-08-26] MEDS: traMADol HCl 50 MG TAB PO PRN ×2 (03:04→12:45)
[2017-08-26] MEDS: HumaLOG 300 UNITS/3 ML VIAL SC PRN ×3 (06:10→21:15)
[2017-08-26] MEDS: Furosemide 100 MG/10 ML VIAL SLOW IVP SCH ×2 (06:22→13:01)
--- NOTE | 2017-08-26 09:13 | PRG ---
DATE OF SERVICE: 08/26/2017 SUBJECTIVE: This 62-year-old female being seen for end-stage renal disease. Patient denies any naus ea, vomiting or chest pain. PHYSICAL EXAMINATION: GENERAL: Patient is awake, alert. VITAL SIGNS: Afebrile, pulse 75, breathing 16, blood pressure 140/58. OBJECTIVE: See above. Awake, alert, in no acute distress. GENERAL APPEARANCE AND MENTAL STATUS: Fair. HEAD/NECK: Normocephalic. Atraumatic. EYES: EOMI. No deformity. EARS: Clear. No ulcers. NOSE: Intact. No lesions. MOUTH: Clear. No discharge. THROAT: Clear. No exudate. LUNGS: Clear. No crackles. CARDIAC: S1, S2. No rub. ABDOMEN: Benign. BS+. GENITALIA/RECTUM: Martin absent. BACK/EXTREMITIES: Edema 0+ Ulcer- NEUROLOGICAL: Alert and motor intact. SKIN: Rash- Bruise- LYMPHATICS: Edema- Ulcer- LABORATORY: Hemoglobin 9.5. ASSESSMENT AND PLAN: 1. Stage 6 chronic kidney disease, continue hemodialysis. 2. Hypertension, stable. 3. Anemia, stable. 4. Medication based on glomerular filtration rate are appropriate.
[2017-08-26] MEDS: Metolazone 5 MG TAB PO SCH ×2 (09:33→12:40)
[2017-08-26] MEDS: predniSONE 5 MG TAB PO SCH ×2 (09:33→12:39)
[2017-08-26] MEDS: Ferrous Sulfate 325 MG TAB PO SCH ×2 (09:33→12:41)
--- NOTE | 2017-08-26 11:41 | PRG ---
DATE OF SERVICE: 08/26/2017 She is doing well today. Her right arm fistula has a good thrill and bruit. Surgical wound looks go od. The patient is doing well. I have encouraged her to exercise her right arm. Her right upper ar m cephalic vein fistula should mature with time. She should come see me in the office in about 6 wee ks, sooner if there are any problems. At this point, I will see her as needed this hospitalization. Please call if necessary.
[2017-08-26] MEDS: cloNIDine 0.1 MG TAB PO SCH ×2 (12:37→21:12)
[2017-08-26] MEDS: Amlodipine 10 MG TAB PO SCH (12:38)
[2017-08-26] MEDS: Atorvastatin Calcium 40 MG TAB PO SCH (12:38)
[2017-08-26] MEDS: hydrALAZINE 25 MG TAB PO SCH ×2 (12:38→21:12)
[2017-08-26] MEDS: Aspirin 81 mg Enteric Coated Tablet PO SCH (12:38)
[2017-08-26] MEDS: Carvedilol 25 MG TAB PO SCH ×2 (12:40→21:13)
[2017-08-26] MEDS: Famotidine 20 MG TAB PO SCH (12:40)
--- NOTE | 2017-08-26 15:25 | PDOC.PN ---
- Subjective Encounter Start Date: 08/26/17 Encounter Start Time: 15:20 Subjective: f/u for ESRD on HD initiated this stay. s/p RUE AV fistula placement -: 08/25/17 with some pain in the extremity. No CP, SOB. Appetite is -: improved. Wants to go smoke outside. - Objective Resuscitation Status: Resuscitation Status FULL:Full Resuscitation MAR Reviewed: Yes Vital Signs & Weight: Vital Signs (12 hours) Temp Pulse Resp BP BP BP Pulse Ox 08/26/17 12:46 98.4 F 82 18 97 08/26/17 12:38 82 173/70 H 08/26/17 12:37 173/70 H 08/26/17 12:32 98.4 F 82 18 173/70 H 97 08/26/17 11:47 98.4 F 85 16 182/92 H 99 Weight Weight 205 lb 3 oz I&O: 08/25/17 08/26/17 08/27/17 06:59 06:59 06:59 Intake Total 210 Output Total 850 Balance -640 Result Diagrams: 08/25/17 17:38 08/23/17 05:00 Additional Labs: Accuchecks 08/26/17 08/26/17 08/25/17 12:33 05:00 20:47 POC Glucose 115 H 304 H 266 H 08/25/17 15:55 POC Glucose 341 H Phys Exam - Physical Examination Constitutional: NAD HEENT: PERRLA, oral pharynx no lesions Neck: no JVD, supple Respiratory: no wheezing, clear to auscultation bilateral Cardiovascular: RRR Gastrointestinal: soft, non-tender, no distention, positive bowel sounds RUE with edema and palpable thrill, bruit Musculoskeletal: pulses present Neurological: normal sensation, moves all 4 limbs Psychiatric: A&O x 3 Skin: normal turgor, cap refill <2 seconds Dx/Plan (1) ESRD (end stage renal disease) on dialysis Code(s): N18.6 - END STAGE RENAL DISEASE; Z99.2 - DEPENDENCE ON RENAL DIALYSIS Status: Chronic Comment: ESRD on HD initiated this stay, awaiting insurance approval for outpt HD (2) COPD (chronic obstructive pulmonary disease) Status: Chronic Qualifiers: COPD type: chronic bronchitis Comment: Continue general pulm supportive measures, no exacerbation currently (3) Poorly controlled diabetes mellitus Code(s): E11.65 - TYPE 2 DIABETES MELLITUS WITH HYPERGLYCEMIA Status: Chronic (4) Chronic anemia Code(s): D64.9 - ANEMIA, UNSPECIFIED Status: Chronic Comment: sec to ckd, s/ p 1u PRBC's, serial H/H monitoring, no acute blood loss noted (5) HTN (hypertension) Code(s): I10 - ESSENTIAL (PRIMARY) HYPERTENSION Status: Chronic Qualifiers: Hypertension type: essential hypertension Qualified Code(s): I10 - Essential (primary) hypertension Comment: Labile, continue monitoring trend, likely will improve with maintenance HD - Plan PT/OT, rn social services, out of bed/ambulate, DVT proph w/SCDs Stable overall -: Continue HD per Nephrology -: Await final insurance approval for HD -: Increase Coreg 12.5mg BID -: OOB/ambulate * Anticipate d/c in 24h
[2017-08-26] MEDS: Gabapentin 100 MG CAP PO SCH (21:13)
[2017-08-27] MEDS: Furosemide 100 MG/10 ML VIAL SLOW IVP SCH ×2 (05:38→13:11)
[2017-08-27] MEDS: HumaLOG 300 UNITS/3 ML VIAL SC PRN ×3 (05:39→17:13)
[2017-08-27] MEDS: Ferrous Sulfate 325 MG TAB PO SCH (08:02)
[2017-08-27] MEDS: Atorvastatin Calcium 40 MG TAB PO SCH (08:03)
[2017-08-27] MEDS: Aspirin 81 mg Enteric Coated Tablet PO SCH (08:04)
[2017-08-27] MEDS: hydrALAZINE 25 MG TAB PO SCH ×2 (08:04→20:53)
[2017-08-27] MEDS: cloNIDine 0.1 MG TAB PO SCH ×2 (08:04→20:53)
[2017-08-27] MEDS: Amlodipine 10 MG TAB PO SCH (08:04)
[2017-08-27] MEDS: predniSONE 5 MG TAB PO SCH (08:05)
[2017-08-27] MEDS: Famotidine 20 MG TAB PO SCH (08:05)
[2017-08-27] MEDS: Carvedilol 25 MG TAB PO SCH ×2 (08:05→20:53)
[2017-08-27] MEDS: Metolazone 5 MG TAB PO SCH (08:12)
[2017-08-27] MEDS: Epoetin (ESRD) 10,000 UNITS/ML VIAL IVP SCH (09:52)
--- NOTE | 2017-08-27 14:15 | PRG ---
DATE OF SERVICE: 08/27/2017 SUBJECTIVE: This 62-year-old female being seen for end-stage renal disease. Patient denies any naus ea, vomiting or chest pain. PHYSICAL EXAMINATION: GENERAL: Patient is awake, alert. VITAL SIGNS: Afebrile, pulse 70, breathing at 16, blood pressure 100/45. GENERAL APPEARANCE AND MENTAL STATUS: Fair. HEAD/NECK: Normocephalic. Atraumatic. EYES: EOMI. No deformity. EARS: Clear. No ulcers. NOSE: Intact. No lesions. MOUTH: Clear. No discharge. THROAT: Clear. No exudate. LUNGS: Clear. No crackles. CARDIAC: S1, S2. No rub. ABDOMEN: Benign. BS+. GENITALIA/RECTUM: Martin absent. BACK/EXTREMITIES: Edema 0+ Ulcer- NEUROLOGICAL: Alert and motor intact. SKIN: Rash- Bruise- LYMPHATICS: Edema- Ulcer- LABORATORY: Hemoglobin 9.5. ASSESSMENT AND PLAN: 1. Stage 6 chronic kidney disease, continue hemodialysis. 2. Hypertension, stable. 3. Anemia, stable. 4. Discharge planning is in progress. The patient should be discharged by today.
--- NOTE | 2017-08-27 20:38 | DIS ---
DATE OF ADMISSION: 08/21/2017 DATE OF DISCHARGE: 08/27/2017 DISCHARGE DIAGNOSES: 1. End-stage renal disease with initiation of hemodialysis. 2. Diabetes mellitus type 2, insulin requiring. 3. Chronic obstructive pulmonary disease. 4. Chronic anemia secondary to chronic kidney disease status post 1 unit of packed red blood cells. 5. Hypertension, labile. 6. Tobacco abuse. 7. Dyslipidemia. CONSULTATIONS: Dr. Zacarias with Nephrology Service. Dr. Alberts with General Surgery Service. PERTINENT LAB AND X-RAY FINDINGS: Creatinine ranged between 3.42-4.24 with estimated GFR ranging bet ween 11-14. Potassium ranged between 4.6-5.6. BNP 340. CBC showed a white blood cell count ranging between 6.2-9.3, hemoglobin ranged between 6.4-9.5. MCV 90. Hepatitis B and C antigen and antibody negative on 08/22/2017. Portable chest x-ray dated 08/21/2017 showed patchy opacity in the lingula and left lung base. Portable chest x-ray dated 08/22/2017 showed interval placement of right interna l jugular double lumen tunneled hemodialysis catheter. Interval placement of left internal jugular c entral venous catheter. Interval improvement in airspace densities of the left lower lobe. HOSPITAL COURSE: Patient was initially admitted after presenting with generalized weakness and short ness of breath with evidence of volume overload in the context of known chronic kidney disease stage 4, progressing to end-stage renal disease. The patient was evaluated by the Nephrology Service and d blairmed an appropriate candidate for hemodialysis after apparently failing therapy with loop diuretics including Lasix. The patient underwent a tunneled hemodialysis catheter placement in addition to upp er extremity primary AV fistula placement and continued on hemodialysis throughout her hospital cours e. Case management assisted with setting up outpatient hemodialysis which patient will continue afte r discharge. Overall, general weakness and metabolic derangements including acidosis, improved with hemodialysis. The patient did receive 1 unit of packed red blood cells without evidence of acute blo od loss, and likely chronic anemia in the context of known chronic kidney disease. The patient was c ounseled regarding the need for smoking cessation and overall remained clinically stable through the remainder of the hospital course. The patient is ready for discharge 08/27/2017. DISCHARGE MEDICATIONS: 1. Proventil HFA 2 puffs inhaled q.6 hours p.r.n. 2. Norvasc 10 mg 1 tab p.o. daily. 3. Enteric-coated aspirin 81 mg 1 tab p.o. daily. 4. Lipitor 40 mg 1 tab p.o. daily. 5. Coreg 6.25 mg 1 tab p.o. b.i.d. 6. Catapres 0.1 mg p.o. b.i.d. 7. Ferrous sulfate 324 mg 2 tabs p.o. q.a.m. 8. Gabapentin 200 mg p.o. at bedtime. 9. Hydralazine 25 mg p.o. b.i.d. 10. NPH insulin 21 units subcutaneously q.a.m. and 15 units subcutaneously at bedtime. 11. Prednisone 5 mg 1 tab p.o. q.a.m. 12. Requip 1 mg p.o. at bedtime p.r.n. FOLLOWUP: Patient will follow up with her primary care provider at the [facility] in [place], [place] within 1 week of discharge. The patient will follow up with Dr. Alberts with [facility] service 4-6 weeks after discharge. CONDITION ON DISCHARGE: Stable. ACTIVITY: Ad robert. DIET: Heart healthy, ADA and renal. SPECIAL INSTRUCTIONS: Follow up with [facility] on 08/29/2016 at 3:00 p.m. CODE STATUS: Full. DISPOSITION: Home on 08/27/2017.
[2017-08-27 20:48] VITALS: BP 166/74
[2017-08-27] MEDS: Gabapentin 100 MG CAP PO SCH (20:53)
[2017-08-27 21:41] VITALS: TEMP 98.1
== END 2017-08-27 23:50 | disposition home or self-care (01) | DRG 674 ==
LOC: ERS 23:17 → T4-B 08-21 01:00
PROVIDERS: ADMIT Family Medicine; ATTEND Family Medicine
PROC: 02HV33Z Insertion of Infusion Device into Superior Vena Cava, Percutaneous Approach (ICD-10-PCS; 2017-08-22)
PROC: B548ZZA Ultrasonography of Superior Vena Cava, Guidance (ICD-10-PCS; 2017-08-22)
PROC: 30233N1 Transfusion of Nonautologous Red Blood Cells into Peripheral Vein, Percutaneous Approach (ICD-10-PCS; 2017-08-23)
PROC: 031B09F Bypass Right Radial Artery to Lower Arm Vein with Autologous Venous Tissue, Open Approach (ICD-10-PCS; principal; 2017-08-25)
PROC: 5A1D70Z Performance of Urinary Filtration, Intermittent, Less than 6 Hours Per Day (ICD-10-PCS; 2017-08-26)
DX: N17.9 Acute kidney failure, unspecified (principal); I12.0 Hypertensive chronic kidney disease with stage 5 chronic kidney disease or end stage renal disease; E87.2 Acidosis; Z68.41 Body mass index [BMI] 40.0-44.9, adult; T82.868A Thrombosis due to vascular prosthetic devices, implants and grafts, initial encounter; E11.22 Type 2 diabetes mellitus with diabetic chronic kidney disease; N18.6 End stage renal disease; E88.81 Metabolic syndrome and other insulin resistance; E66.01 Morbid (severe) obesity due to excess calories; Z99.2 Dependence on renal dialysis; F17.210 Nicotine dependence, cigarettes, uncomplicated; J44.9 Chronic obstructive pulmonary disease, unspecified; E78.5 Hyperlipidemia, unspecified; D63.1 Anemia in chronic kidney disease; Y71.3 Surgical instruments, materials and cardiovascular devices (including sutures) associated with adverse incidents; E87.5 Hyperkalemia
CPT/HCPCS: 36415; 36416; 36430; 71010; 80048; 80053; 82550; 82553; 82728; 83540; 83550; 83880; 84484; 85007; 85014; 85018; 85025; 85027; 86580; 86704; 86706; 86803; 86850; 86900; 86901; 87340; 90935; 93005; 93970; 96374; A4216; C1752; C1769; G0257; G0365; G8978-GP-CJ; G8979-GP-CJ; G8980-GP-CJ; J0171; J0670; J1170; J1644; J1940; J2001; J2250; J2405; J2704; J2720; J3010; P9016; Q4081; S0020

== ENCOUNTER 2017-11-19 18:54 | Emergency (ER) | payer OTHER ==
--- NOTE | 2017-11-19 19:32 | RAD ---
TWO VIEW CHEST: 11/19/17 HISTORY: Shortness of breath. Lungs are clear. No evidence of infiltrate. Heart and mediastinum unremarkable. Dual lumen dialysis t ype catheter has tip overlying the SVC. IMPRESSION: No acute chest abnormality identified. POS: MATHEWH
[2017-11-19] MEDS ORDERED: Acetaminophen 325 MG TAB ONE (23:39)
--- NOTE | 2017-11-19 23:45 | RAD ---
RIGHT HIP: 11/19/17 Two views. HISTORY: Fall two days ago. Right hip pain. FINDINGS/IMPRESSION: There are moderate degenerative changes at the hip with spurring from the femoral head and acetabulum . No definite fracture identified. A subtle subcapital fracture cannot be definitely be excluded give n the degenerative change present. Consider further evaluation with CT or MRI. POS: CARLITOS
[2017-11-20] MEDS ORDERED: hydrALAZINE 25 MG TAB ONE ×2 (00:05→00:08)
[2017-11-20] MEDS ORDERED: cloNIDine 0.1 MG TAB ONE (00:05)
== END 2017-11-20 00:52 | disposition home or self-care (01) ==
LOC: ERS 18:54
DX: S20.211A Contusion of right front wall of thorax, initial encounter (principal); E11.9 Type 2 diabetes mellitus without complications; E78.5 Hyperlipidemia, unspecified; I10 Essential (primary) hypertension; W18.2XXA Fall in (into) shower or empty bathtub, initial encounter
CPT/HCPCS: 71046

== ENCOUNTER 2017-11-27 11:11 | Inpatient (IN) | payer OTHER ==
[2017-11-27] MEDS ORDERED: Naloxone HCl 0.4 mg/ml Vial ONE (11:18)
[2017-11-27 11:35] LABS: Base Excess-Venous 2.9 mmol/L (0 (+/- 2.5)); Bicarbonate (HCO3v) 26.8 mmol/L (1.0-85.0); CO2 Tension (PvCO2) 37.5 mmHg (41.0-51.0); Calcium, Ionized 0.91 mmol/L (1.12-1.32); Hemoglobin - Calc 11.8 g/dL (12.0-18.0); Potassium 3.3 mmol/L (3.4-4.7); T. Carbon Dioxide 27.9 mmol/L (1.0-85.0); pH (Venous) 7.462 (7.35-7.45)
[2017-11-27] MEDS ORDERED: Acetaminophen 325 MG Suppository ONE (11:39)
[2017-11-27] MEDS ORDERED: Acetaminophen 650 MG Suppository ONE (11:39)
[2017-11-27 11:42] LABS: pH, Arterial 7.49 (7.35-7.45)
[2017-11-27 11:43] LABS: ALV-art Gradient 315.575 (0-20); Analyzer IN Cardio ER; Base Excess (BEa) 3.6 mEq/L (0 (+/-) 2.5); CO2 Tension 36.5 mmHg (35.0-45.0); Calcium, Ionized 1.1 mmol/L (1.12-1.30); Hematocrit-ABG 35.2 % (36.0-47.0); Hemoglobin (Hb) 10.7 g/dL (12.0-16.0); O2 Tension (PaO2) 351.8 mmHg (80.0-100.0); Puncture Site LRA
[2017-11-27 11:49] LABS: Hemoglobin 11.1 g/dL (12.0-16.0); Mean Corpuscular HGB CONC 31.6 g/dL (32.0-36.0); Mean Corpuscular Hemoglobin 27.5 pg (27.0-31.0); Mean Corpuscular Volume 87.3 fl (81.0-99.0); Mean Platelet Volume 7.5 fL (7.4-10.4); Platelet Count 217 thou/uL (130-400); RBC Distribution Width 13.4 % (11.5-14.5); Red Blood Cell (RBC) Count 4.02 mill/uL (4.20-5.40); White Blood Cell (WBC) Count 20.2 thou/uL (4.8-10.8)
[2017-11-27 12:10] LABS: ALT (SGPT) 8 U/L (8-55); AST (SGOT) 15 U/L (5-34); Albumin 2.2 g/dL (3.4-4.8); Alkaline Phosphatase 85 U/L (40-150); Anion Gap 12 mmol/L (10-20); BUN (Urea Nitrogen) 22 mg/dL (9.8-20.1); Bilirubin, Total 0.2 mg/dL (0.2-1.2); Calc. Creatinine Clearance 0 mL/min (70-130); Calcium 7.8 mg/dL (7.8-10.44); Carbon Dioxide 24 mmol/L (23-31); Chloride 100 mmol/L (98-107); Estimated GFR-MDRD 15; Globulin 2.7 g/dL (2.4-3.5); Glucose 120 mg/dL (80-115); Protein, Total 4.9 g/dL (6.0-8.3); Sodium 133 mmol/L (136-145)
[2017-11-27 12:16] LABS: Bilirubin Negative (Negative); Blood, Urine Small (Negative); Clarity CLOUDY (Clear); Glucose, Urine (Dipstick) 500 mg/dL (Negative); Leukocyte Small (Negative); Nitrite Negative (Negative); Protein, Urine (Dipstick) > or equal to 300 mg/dL (Neg-Trace); Specific Gravity, Urine 1.021 (1.002-1.036); Urobilinogen 0.2 mg/dL (0.2-1.0); pH, Urine 7.5 (5.0-9.0)
[2017-11-27 12:17] LABS: Bacteria/HPF None Seen HPF (None Seen); Pathc Cast-AUWi Flag 1.59 (0-2.49)
[2017-11-27 12:32] LABS: Band 9 % (5-11); Lymphocytes 6 % (21-51); MDiff Complete? YES; Metamyelocyte 1 % (0-0); Monocytes 2 % (0-10); Neutrophil 77 % (42-75); Reactive Lymphocytes 5 % (0-10)
[2017-11-27 12:42] LABS: Hyaline Casts/LPF 0-3 HYALINE CAST LPF (0-3 Hyaline)
[2017-11-27] MEDS ORDERED: Ondansetron HCl/PF 4 MG/2 ML Vial IVP PRN ×2 (12:56→18:24)
[2017-11-27] MEDS ORDERED: Milk Of Magnesia 30 ML UDCUP PO PRN ×2 (12:56→18:24)
[2017-11-27] MEDS ORDERED: Ondansetron ODT 4 MG TAB PO PRN ×2 (12:56→18:24)
[2017-11-27] MEDS ORDERED: Acetaminophen 325 MG TAB PO PRN (12:56)
--- NOTE | 2017-11-27 12:56 | RAD ---
FRONTAL RADIOGRAPH CHEST: 11/27/2017 HISTORY: Altered mental status. COMPARISON: 08/22/2017 FINDINGS: There is a right-sided dialysis catheter, distal tip overlying the cavoatrial junction. There is postoperative hardware associated with the proximal right humerus. There is degenerative ch shay involving the bilateral shoulders. No pneumothorax is seen. There is hazy nonspecific increased density in the left perihilar region and left suprahilar region, nonspecific. No lobar consolidation or alveolar edema. This density in the left perihilar region an d left suprahilar region is new since the 08/20/2017 exam. IMPRESSION: 1. Nonspecific increased density seen in the left perihilar/left suprahilar region. This could be o n the basis of inflammatory/infectious process or volume loss. Recommend short-term follow-up imagin g of the chest following treatment to document resolution. 2. Asymmetric edema is a possibility as well. CODE T POS: CARLITOS
[2017-11-27] MEDS ORDERED: HumaLOG 300 UNITS/3 ML VIAL SC PRN (12:58)
[2017-11-27] MEDS ORDERED: Dextrose 5% in Water 1,000 ML IV PRN (12:58)
[2017-11-27] MEDS ORDERED: Albuterol Sulfate 2.5 mg/3 ml Neb NEB PRN (12:58)
[2017-11-27] MEDS ORDERED: Dextrose 50% Abboject 50 ML SYRINGE SLOW IVP PRN (12:58)
[2017-11-27] MEDS ORDERED: Labetalol HCl 100 MG/20 ML VIAL SLOW IVP PRN (12:59)
[2017-11-27] MEDS ORDERED: Azithromycin 500 MG VIAL ONE (13:04)
[2017-11-27] MEDS ORDERED: cefTRIAXone\\ROCEPHIN 2 GM in Sodium Chloride 0.9% 100 ML IVPB SCH (13:15)
[2017-11-27] MEDS ORDERED: guaiFENesin 100 MG/5 ML UDCUP PO PRN (13:30)
--- NOTE | 2017-11-27 14:27 | HP ---
PRIMARY CARE PHYSICIAN: Benitez De Oliveira M.D. THERMODYNAMICIST: Tod Avalos M.D. HISTORY OF PRESENT ILLNESS: Ms. Feng presented to the emergency room with altered mental status. According to her relatives, she was lethargic yesterday, sleepy and not as conversant as usual and t hen this morning when she usually gets up before her family to go for dialysis, they found her in her room and she was not really responding to the face mask or to lying down and seems to be altered. T here is no reported history of fever, chills, cough, shortness of breath. There is no reported abdom inal or urinary symptoms. History is limited due to the patient's altered mental status. 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 PAST SURGICAL HISTORY: Status post right shoulder repair, total left knee arthroplasty, and ovarian cyst removal. FAMILY HISTORY: Reviewed and noncontributory. SOCIAL HISTORY: She smokes cigarettes. No significant alcohol use or illicit drug use. ALLERGIES: VANCOMYCIN. REVIEW OF SYSTEMS: Unable to perform due to the patient's altered mental status. HOME MEDICATIONS: Albuterol sulfate inhaler 2 puffs every 6 hours p.r.n. for shortness of breath, am lodipine 10 mg daily, aspirin 81 mg daily, atorvastatin 40 mg daily, carvedilol 6.25 mg b.i.d., cloni dine 0.1 mg b.i.d., ferrous sulfate 324 mg, gabapentin 200 mg at bedtime, hydralazine 25 mg p.o. b.i. d., insulin NPH 15 units at bedtime, 21 units a.c., prednisone 5 mg q.a.m., and propranolol 4 mg at b edtime. PHYSICAL EXAMINATION: VITAL SIGNS: Stable. GENERAL: Lethargic female, oriented x3, not in acute distress. HEENT: PERRLA, EOMI. Normocephalic, atraumatic. Not pale, anicteric. Moist mucous membranes. NECK: Supple, full range of movement. No JVD. RESPIRATORY: Diminished breath sounds bilaterally, worse in the left lung delgado. CARDIOVASCULAR: Heart regular rate and rhythm with S1 and S2 only. No murmurs, rubs or gallops. ABDOMEN: Obese, bowel sounds positive, nontender, nondistended. No hepatosplenomegaly. EXTREMITIES: No pitting edema. PSYCHIATRIC: Lethargic, oriented x3. Not able to fully cooperate with exam. SKIN: Warm, dry, well-perfused. No rashes or lesions. MUSCULOSKELETAL: No edema. LABORATORY DATA: WBC 20,000, hemoglobin 11.1, platelet count 217. Blood gas with pH of 7.49, pCO2 o f 36.5, pO2 of 351.8 on nonrebreather. Chemistry: Sodium of 137, potassium 3.3, BUN/creatinine of 2 2 and 3.13 respectively. IMAGING: Chest x-ray which showed a nonspecific density in the left perihilar left suprahilar region . Blood cultures pending. ASSESSMENT AND PLAN: 1. Acute encephalopathy. This could be due to healthcare-associated pneumonia (note the patient rec eives dialysis on Tuesdays, , and Saturdays) or urinary tract infection as urine revealed on ly small amount of leukocyte esterase, more markedly elevated wbc count. Blood cultures have been co llected and she will be started on IV ceftriaxone and azithromycin, which will cover for both sources of infection. We will monitor vital signs closely. In addition, the patient takes sedative medicat ions at home which could be contributing to her encephalopathy. She responded to 2 doses of Narcan a t emergency room. We will prescribe Narcan p.r.n. for patient, although her vital signs seem to be n ormal and no indication that there is any respiratory depression. 2. Type 2 diabetes mellitus, insulin-dependent. We will obtain hemoglobin A1c and start on a slidin g scale coverage. We will also place on fingerstick glucose before meals and at bedtime, diabetic di et and hypoglycemia protocol. 3. Essential hypertension. The patient's blood pressure is currently well controlled. We will grad ually introduce home regimen as blood pressure tolerates. 4. End-stage renal disease, on hemodialysis. Nephrology has been consulted and she received hemodia lysis sessions while in the hospital. 5. Chronic obstructive pulmonary disease. The patient was started on inhaler, but according to fami ly has not used them for a while. She will be placed on p.r.n. nebulizer treatments. In addition, she will receive antitussives, antiemetics, subcutaneous heparin for DVT prophylaxis and oxygen supplementation as required. We will follow up on blood cultures as well.
[2017-11-27] MEDS ORDERED: Heparin 5,000 UNITS/ML VIAL SC SCH (15:00)
[2017-11-27] MEDS ORDERED: Docusate 100 MG CAP PO SCH (21:00)
[2017-11-27] MEDS: Heparin 5,000 UNITS/ML VIAL SC SCH (21:13)
[2017-11-27] MEDS ORDERED: Acetaminophen 650 MG Suppository PR PRN (21:32)
[2017-11-28] MEDS ORDERED: FLU VACC QS2017-18 36 mo. & older 0.5 ML SYRINGE IM ONE (09:00)
[2017-11-28] MEDS ORDERED: Prevnar 13-Val Conj/PF 0.5 ML SYRINGE IM ONE (09:00)
[2017-11-28] MEDS: cefTRIAXone\\ROCEPHIN 1 GM in Sodium Chloride 0.9% 10 ML SLOW IVP SCH (09:50)
[2017-11-28] MEDS: Heparin 5,000 UNITS/ML VIAL SC SCH ×3 (09:51→21:31)
[2017-11-28] MEDS: Azithromycin 500 MG in Sodium Chloride 0.9% 250 ML 250 ML IVPB SCH (09:51)
[2017-11-28] MEDS ORDERED: Potassium Chloride 20 MEQ TAB PO SCH (10:00)
[2017-11-28] MEDS: Acetaminophen 325 MG TAB PO PRN ×3 (10:10→21:31)
[2017-11-28 10:36] LABS: #Lymphocytes 1.5 thou/uL (1.20-3.40); #Monocytes 0.9 thou/uL (0.11-0.59); #Neutrophils 9.4 thou/uL (1.40-6.50); %Basophils 0.1 % (0.0-1.0); %Eosinophils 0.3 % (0.0-10.0); %Lymphocytes 12.8 % (21.0-51.0); %Monocytes 7.9 % (0.0-10.0); Hemoglobin 11.3 g/dL (12.0-16.0); Mean Corpuscular HGB CONC 33.5 g/dL (32.0-36.0); Mean Corpuscular Hemoglobin 29.9 pg (27.0-31.0); Mean Corpuscular Volume 89.1 fl (81.0-99.0); Mean Platelet Volume 7.9 fL (7.4-10.4); Platelet Count 156 thou/uL (130-400); RBC Distribution Width 13.6 % (11.5-14.5); Red Blood Cell (RBC) Count 3.77 mill/uL (4.20-5.40); White Blood Cell (WBC) Count 11.9 thou/uL (4.8-10.8)
[2017-11-28 11:00] LABS: Anion Gap 13 mmol/L (10-20); BUN (Urea Nitrogen) 17 mg/dL (9.8-20.1); Calc. Creatinine Clearance 19 mL/min (70-130); Calcium 8.1 mg/dL (7.8-10.44); Carbon Dioxide 28 mmol/L (23-31); Chloride 103 mmol/L (98-107); Estimated GFR-MDRD 15; Glucose 71 mg/dL (80-115); Potassium 3.7 mmol/L (3.5-5.1); Sodium 140 mmol/L (136-145)
--- NOTE | 2017-11-28 11:24 | CON ---
DATE OF CONSULTATION: 11/27/2017 CONSULTING PHYSICIAN: Dr. Nolan. REASON FOR CONSULT: End-stage renal disease, evaluation and care. REASON FOR ADMISSION: Altered mentation. HISTORY OF PRESENT ILLNESS: This is a 62-year-old female with history of end-stage renal disease, ty pe 2 diabetes, tobacco use, anemia, diabetic nephropathy, came to the hospital with altered mentation . Patient was sleepy this morning and family could not wake her up and says they were getting ready for dialysis and she was taken to the hospital. Patient is still having very altered mentation, very lethargic. She is due for dialysis today, scheduled Tuesdays, , and Saturdays. No fever o r chills reported. Patient is not able to give good history. PAST MEDICAL HISTORY: Significant for end-stage renal disease, type 2 diabetes, anemia, diabetic nep hropathy, hyperlipidemia, COPD. PAST SURGICAL HISTORY: Shoulder repair, total knee replacement, ovarian cyst removal. HOME MEDICATIONS: Albuterol, amlodipine, aspirin, atorvastatin, Coreg, , ferrous sulfate, gabap entin, hydralazine, insulin NPH, prednisone, propranolol. ALLERGIES: VANCOMYCIN. SOCIAL HISTORY: She is a current smoker. No alcohol or illicit drug abuse. FAMILY HISTORY: No history of kidney disease. REVIEW OF SYSTEMS: The following complete review of systems was negative, unless otherwise mentioned in the HPI or below: Constitutional: Weight loss or gain, ability to conduct usual activities. Sk in: Rash, itching. Eyes: Double vision, pain. ENT/Mouth: Nose bleeding, neck stiffness, pain, te nderness. Cardiovascular: Palpitations, dyspnea on exertion, orthopnea. Respiratory: Shortness of breath, wheezing, cough, hemoptysis, fever, or night sweats. Gastrointestinal: Poor appetite, abdo william pain, heartburn, nausea, vomiting, constipation, or diarrhea. Genitourinary: Urgency, frequen cy, dysuria, nocturia. Musculoskeletal: Pain, swelling. Neurologic/Psychiatric: Anxiety, depressi on. Allergy/Immunologic: Skin rash, bleeding tendency. PHYSICAL EXAMINATION: GENERAL: Obese female was altered. VITAL SIGNS: Temperature of 100.6, pulse 121, respiratory 26, blood pressure 137/67. HEENT: Atraumatic, normocephalic. Oral mucosa is moist. NECK: Supple. HEART: S1, S2. Rate and rhythm regular. RESPIRATORY: Clear. ABDOMEN: Soft. MUSCULOSKELETAL: 1+ edema. DERMATOLOGIC: No skin rash. NEUROLOGIC: Very lethargic, somnolent. LABORATORY DATA: Hemoglobin is 11.1. Potassium is 3.0, sodium 133, BUN 22, creatinine 3.1. ASSESSMENT AND PLAN: 1. End-stage renal disease. We will continue on hemodialysis, as tolerated. 2. Hypokalemia, . 3. Edema, controlled. 4. Hypertension, stable. 5. Anemia, mild. Plan is to continue on dialysis as tolerated. We will follow.
--- NOTE | 2017-11-28 11:48 | PDOC.PN ---
- Subjective Encounter Start Date: 11/28/17 Encounter Start Time: 11:52 Subjective: Markedly improved. AO x3 today. No complaints. -: No acute events overnight. - Objective MAR Reviewed: Yes Vital Signs & Weight: Vital Signs (12 hours) Temp Pulse Resp BP Pulse Ox 11/28/17 04:30 98.7 F 81 16 132/63 92 L 11/28/17 04:00 100.7 F H 11/27/17 23:55 102.1 F H 94 22 H 117/56 L 95 Weight Weight 140 lb 2 oz Result Diagrams: 11/28/17 10:30 11/28/17 10:30 Additional Labs: Accuchecks 11/28/17 11/28/17 11/27/17 11:10 05:46 21:41 POC Glucose 163 H 70 76 Phys Exam - Physical Examination Constitutional: NAD HEENT: PERRLA, moist MMs, sclera anicteric Neck: supple, full ROM Respiratory: no wheezing, no rales, no rhonchi, clear to auscultation bilateral Cardiovascular: RRR, no significant murmur, no rub Gastrointestinal: soft, non-tender, no distention, positive bowel sounds Musculoskeletal: no edema, pulses present Neurological: non-focal, moves all 4 limbs Psychiatric: normal affect, A&O x 3 Skin: no rash, normal turgor Dx/Plan (1) Acute encephalopathy Code(s): G93.40 - ENCEPHALOPATHY, UNSPECIFIED Status: Acute Comment: Likely 2/2 PNA and UTI. Resolving with antibiotics. (2) UTI (urinary tract infection) Status: Acute Qualifiers: Urinary tract infection type: acute cystitis Hematuria presence: without hematuria Qualified Code(s): N30.00 - Acute cystitis without hematuria Plan: As above (3) COPD (chronic obstructive pulmonary disease) Status: Chronic Qualifiers: COPD type: unspecified COPD Qualified Code(s): J44.9 - Chronic obstructive pulmonary disease, unspecified Comment: Stable. Continue general pulm supportive measures, no exacerbation currently (4) DM type 2 (diabetes mellitus, type 2) Status: Chronic Qualifiers: Diabetes mellitus group home insulin use: with watermelon inspector use Diabetes mellitus complication status: with kidney complications Diabetes mellitus complication detail: with chronic kidney disease Chronic kidney disease stage : on chronic dialysis Qualified Code(s): E11.22 - Type 2 diabetes mellitus with diabetic chronic kidney disease; N18.6 - End stage renal disease; N18.6 - End stage renal disease; N18.6 - End stage renal disease; N18.6 - End stage renal disease; Z79.4 - technician terminal and repeater (current) use of insulin; Z79.4 - technician terminal and repeater ( current) use of insulin; Z79.4 - technician terminal and repeater (current) use of insulin; Z79.4 - technician terminal and repeater (current) use of insulin; Z99.2 - Dependence on renal dialysis; Z99.2 - Dependence on renal dialysis; Z99.2 - Dependence on renal dialysis; Z99.2 - Dependence on renal dialysis Comment: Controlled. Continue current regimen. (5) ESRD (end stage renal disease) on dialysis Code(s): N18.6 - END STAGE RENAL DISEASE; Z99.2 - DEPENDENCE ON RENAL DIALYSIS Status: Chronic Comment: ESRD on HD initiated this stay, awaiting insurance approval for outpt HD (6) HTN (hypertension) Code(s): I10 - ESSENTIAL (PRIMARY) HYPERTENSION Status: Chronic Qualifiers: Hypertension type: essential hypertension Comment: Well controlled. (7) PNA (pneumonia) Code(s): J18.9 - PNEUMONIA, UNSPECIFIED ORGANISM Status: Acute Qualifiers: Pneumonia type: due to Pneumococcus Laterality: left Lung location: upper lobe of lung Qualified Code(s): J13 - Pneumonia due to Streptococcus pneumoniae Comment: Blood culture grew gram positive cocci in clusters, likely to be Staph. Improving with antibiotics. - Plan cont current plan of care, plan discussed w/ family, continue antibiotics, respiratory therapy, DVT proph w/heparin Likely discharge tomorrow. * . Review of Systems - Medications/Allergies Allergies/Adverse Reactions: Allergies Allergy/AdvReac Type Severity Reaction Status Date / Time No Known Allergies Allergy Verified 11/28/17 05:44 Medications: Current Medications Acetaminophen (Tylenol) 650 mg PO Q4H PRN PRN Reason: Headache/Fever or Pain Last Admin: 11/28/17 10:10 Dose: 650 mg Acetaminophen (Tylenol) 650 mg [place] Q6H PRN PRN Reason: Headache/Fever or Pain Last Admin: 11/27/17 21:39 Dose: 650 mg Heparin Sodium (Porcine) (Heparin) 5,000 units SC TID EVERT Last Admin: 11/28/17 09:51 Dose: 5,000 units Azithromycin 500 mg/ Sodium (Chloride) 250 mls @ 250 mls/hr IVPB Q24HR [facility] Last Admin: 11/28/17 09:51 Dose: 250 mls Ceftriaxone Sodium 1 gm/ (Sodium Chloride) 10 mls @ 120 mls/hr SLOW IVP Q24HR [facility] Last Admin: 11/28/17 09:50 Dose: 10 mls Lactulose (Lactulose) 20 gm PO DAILYPRN PRN PRN Reason: Constipation Magnesium Hydroxide (Milk Of Magnesium) 30 ml PO DAILYPRN PRN PRN Reason: Constipation Ondansetron HCl (Zofran Odt) 4 mg PO Q6H PRN PRN Reason: Nausea/Vomiting Ondansetron HCl (Zofran) 4 mg IVP Q6H PRN PRN Reason: Nausea/Vomiting Sodium Chloride (Flush - Normal Saline) 10 ml IVF Q12HR [facility] Last Admin: 11/28/17 11:42 Dose: Not Given Sodium Chloride (Flush - Normal Saline) 10 ml IVF PRN PRN PRN Reason: Saline Flush
[2017-11-28] MEDS ORDERED: Azithromycin 500 MG in Sodium Chloride 0.9% 250 ML 250 ML IVPB SCH (13:00)
[2017-11-28] MEDS ORDERED: cefTRIAXone\\ROCEPHIN 1 GM in Sodium Chloride 0.9% 100 ML IVPB SCH (14:00)
--- NOTE | 2017-11-28 14:49 | PQF ---
CLINICAL DOCUMENTATION IMPROVEMENT CLARIFICATION FORM: ICD-10 Updated PLEASE DO AN ADDENDUM TO THE PROGRESS NOTE WITH ANY DOCUMENTATION UPDATES OR ADDITIONS AND CARRY THROUGH TO DC SUMMARY. THANK YOU. DATE: 11/28 ATTN: DR. Tosha AREVALO Please exercise your independent, professional judgment in responding to the clarification form. Clinical indicators are provided on the bottom of this form for your review. Please check appropriate box(es): [ x ] Sepsis due to: (Pna, UTI, gangrenous gall bladder, etc.) _Pneumonia [ ] Severe sepsis with acute organ dysfunction of: (Examples: respiratory failure, encephalopathy, acute kidney failure, other) [ ] Other diagnosis [ ] Unable to determine For continuity of documentation, please document condition throughout progress notes and discharge summary. Thank You. CLINICAL INDICATORS - SIGNS / SYMPTOMS / LABS ER PRESENTATION 11/27: T 102.5 (R) RR: 22 ALTERED MENTAL STATUS WBC: 20.2 ER PHYSICIAN DIAGNOSES DOCUMENTATION 11/27: SEPSIS, PNEUMONIA, UTI ATTENDING PHYSICIAN H&P DOCUMENTATION 11/27: ASSESSMENT & PLAN: 1) ACUTE ENCEPHALOPATHY ATTENDING PN 11/28: DX/PLAN: 1) ACUTE ENCEPHALOPATHY; 2) UTI; 7) PNEUMONIA D/ T PNEUMOCOCCUS JLUIS ADMISSION VS: T 103.4 HR: 121 RR: 26 BLOOD CULTURES: MRSA, GRAM POSITIVE COCCI RISK FACTORS: PNEUMONIA UTI METABOLIC ENCEPHALOPATHY TREATMENTS: IV ANTIBIOTICS (AZITHROMYCIN & ROCEPHIN 11/27 - PRESENT) TELEMETRY MONITORING THANK YOU! Andra (This form is maintained as a part of the permanent medical record) 2014 [employer]. All Rights Reserved Andra Monzon RN, BSN [email or web address] Office: [phone] [facility]
[2017-11-28] MEDS ORDERED: Dextrose 50% Abboject 50 ML SYRINGE IVP PRN (17:31)
[2017-11-28] MEDS ORDERED: Dextrose 5% in Water 1,000 ML IV PRN (17:31)
[2017-11-28] MEDS: HumaLOG 300 UNITS/3 ML VIAL SC PRN (17:59)
--- NOTE | 2017-11-28 19:28 | PRG ---
DATE OF SERVICE: 11/28/2017 SUBJECTIVE: Patient was seen and examined at bedside and overnight events noted. Patient denies any shortness of breath or chest pain or palpitation. No history of nausea or vomitin g or diarrhea or fever or chills or cramps. OBJECTIVE: GENERAL: This is a well-built female, in no apparent distress. VITAL SIGNS: Temperature 99.2, pulse 115, respiratory rate 18, blood pressure 113/61. HEENT: Atraumatic, normocephalic. Oral mucosa is moist NECK: Supple. CARDIOVASCULAR: S1 and S2 heard. Rate and rhythm regular. RESPIRATORY: Clear to auscultation. GASTROINTESTINAL: Abdomen is soft. MUSCULOSKELETAL: No tenderness. No edema. DERMATOLOGIC: No skin rash. NEUROLOGIC: Alert and awake and oriented X3, No focal neurologic deficits. Moving all the extremitie s. PSYCHIATRIC: Mood and affect normal. LABORATORY DATA: Potassium is 3.7, BUN 17, creatinine is 3.08. ASSESSMENT AND PLAN: 1. End-stage renal disease, currently on dialysis Friday, , and Friday. 2. Hypokalemia, better. 3. Edema. 4. Hypertension. 5. Anemia. Plan is to continue on dialysis Friday, , and Friday as tolerated.
[2017-11-29] MEDS ORDERED: cloNIDine 0.1 MG TAB PO PRN (04:05)
[2017-11-29] MEDS ORDERED: hydrALAZINE 20 MG/ML VIAL SLOW IVP PRN (04:05)
[2017-11-29] MEDS ORDERED: Amlodipine 5 MG TAB PO SCH ×2 (04:15→09:00)
[2017-11-29 06:00] LABS: #Eosinphils 0.1 thou/uL (0.0-0.7); #Monocytes 0.6 thou/uL (0.11-0.59); #Neutrophils 7.4 thou/uL (1.40-6.50); %Basophils 0.2 % (0.0-1.0); %Eosinophils 1.5 % (0.0-10.0); %Lymphocytes 10.6 % (21.0-51.0); %Neutrophils 80.8 % (42.0-75.0); Hemoglobin 10.1 g/dL (12.0-16.0); Mean Corpuscular HGB CONC 33.3 g/dL (32.0-36.0); Mean Corpuscular Hemoglobin 29.5 pg (27.0-31.0); Mean Corpuscular Volume 88.5 fl (81.0-99.0); Mean Platelet Volume 8.2 fL (7.4-10.4); Platelet Count 140 thou/uL (130-400); RBC Distribution Width 13.4 % (11.5-14.5); Red Blood Cell (RBC) Count 3.42 mill/uL (4.20-5.40); White Blood Cell (WBC) Count 9.1 thou/uL (4.8-10.8)
[2017-11-29 06:13] LABS: Anion Gap 12 mmol/L (10-20); BUN (Urea Nitrogen) 28 mg/dL (9.8-20.1); Calc. Creatinine Clearance 16 mL/min (70-130); Calcium 7.8 mg/dL (7.8-10.44); Carbon Dioxide 25 mmol/L (23-31); Chloride 98 mmol/L (98-107); Estimated GFR-MDRD 12; Glucose 260 mg/dL (80-115); Potassium 3.6 mmol/L (3.5-5.1); Sodium 131 mmol/L (136-145)
[2017-11-29] MEDS ORDERED: Sterile Water 10 ML VIAL IVP SCH (09:24)
[2017-11-29] MEDS ORDERED: Activase 2 MG VIAL CATH SCH (09:24)
[2017-11-29] MEDS ORDERED: Sterile Water 20 ML VIAL IVP SCH (09:45)
[2017-11-29] MEDS: cefTRIAXone\\ROCEPHIN 1 GM in Sodium Chloride 0.9% 10 ML SLOW IVP SCH (10:06)
[2017-11-29] MEDS: Azithromycin 500 MG in Sodium Chloride 0.9% 250 ML 250 ML IVPB SCH (10:06)
[2017-11-29] MEDS ORDERED: Vancomycin HCl 1.5 GM in Sodium Chloride 0.9% 250 ML 300 ML IVPB SCH (10:15)
[2017-11-29] MEDS ORDERED: VANCOMYCIN IVPB PRN (10:29)
[2017-11-29] MEDS ORDERED: Vancomycin HCl 1 GM in Premix Bag 1 BAG IVPB SCH (10:30)
[2017-11-29] MEDS ORDERED: HOLD VANCOMYCIN FOR LEVEL >20 FS SCH (10:30)
[2017-11-29] MEDS ORDERED: Vancomycin HCl 750 MG in Sodium Chloride 0.9% 250 ML 250 ML IVPB SCH (10:30)
[2017-11-29] MEDS ORDERED: Vancomycin HCl 500 MG in Sodium Chloride 0.9% 100 ML IVPB SCH (10:30)
[2017-11-29] MEDS ORDERED: Vancomycin HCl 1.25 GM in Sodium Chloride 0.9% 250 ML 250 ML IVPB SCH ×4 (10:30)
[2017-11-29] MEDS ORDERED: cefTRIAXone\\ROCEPHIN 1 GM in Sodium Chloride 0.9% 10 ML SLOW IVP SCH (12:00)
[2017-11-29] MEDS ORDERED: Azithromycin 500 MG in Sodium Chloride 0.9% 250 ML 250 ML IVPB SCH (12:00)
[2017-11-29 12:44] LABS: Vancomycin, Random Less than 1.1 ug/mL (See Comment)
[2017-11-29] MEDS: Heparin 5,000 UNITS/ML VIAL SC SCH ×3 (12:46→20:41)
[2017-11-29] MEDS: Acetaminophen 325 MG TAB PO PRN (12:46)
--- NOTE | 2017-11-29 15:29 | PDOC.PN ---
- Subjective Encounter Start Date: 11/29/17 Encounter Start Time: 15:31 Subjective: No new complaints. -: No acute events overnight. - Objective MAR Reviewed: Yes Vital Signs & Weight: Vital Signs (12 hours) Temp Pulse Resp BP Pulse Ox 11/29/17 12:45 72 11/29/17 12:40 100.4 F H 98 20 144/63 H 96 11/29/17 08:45 98.8 F 72 18 11/29/17 05:56 72 11/29/17 05:51 190/82 H 11/29/17 04:27 72 11/29/17 04:00 98.8 F 75 18 185/80 H 99 Weight Weight 141 lb 4.8 oz I&O: 11/28/17 11/29/17 11/30/17 06:59 06:59 06:59 Intake Total 720 Output Total 1000 Balance -280 Result Diagrams: 11/29/17 05:36 11/29/17 05:36 Additional Labs: Accuchecks 11/29/17 11/29/17 11/28/17 12:42 05:38 16:53 POC Glucose 137 H 258 H 365 H Phys Exam - Physical Examination Constitutional: NAD HEENT: PERRLA, moist MMs, sclera anicteric Neck: no JVD, supple, full ROM Respiratory: no wheezing, no rales, no rhonchi, clear to auscultation bilateral Cardiovascular: RRR, no significant murmur, no rub Gastrointestinal: soft, non-tender, no distention, positive bowel sounds Musculoskeletal: no edema, pulses present Neurological: non-focal, moves all 4 limbs Psychiatric: normal affect, A&O x 3 Skin: no rash, normal turgor Dx/Plan (1) PNA (pneumonia) Code(s): J18.9 - PNEUMONIA, UNSPECIFIED ORGANISM Status: Acute Qualifiers: Laterality: left Lung location: upper lobe of lung Comment: Blood culture grew MRSA. Started on Vanc. f/u sensitivities. (2) Acute encephalopathy Code(s): G93.40 - ENCEPHALOPATHY, UNSPECIFIED Status: Acute Comment: Likely 2/2 PNA. Resolving with antibiotics. (3) COPD (chronic obstructive pulmonary disease) Status: Chronic Qualifiers: COPD type: unspecified COPD Qualified Code(s): J44.9 - Chronic obstructive pulmonary disease, unspecified Comment: Stable. Continue general pulm supportive measures, no exacerbation currently (4) DM type 2 (diabetes mellitus, type 2) Status: Chronic Qualifiers: Diabetes mellitus snf insulin use: with superintendent container terminal use Diabetes mellitus complication status: with kidney complications Diabetes mellitus complication detail: with chronic kidney disease Chronic kidney disease stage : on chronic dialysis Qualified Code(s): E11.22 - Type 2 diabetes mellitus with diabetic chronic kidney disease; N18.6 - End stage renal disease; Z99.2 - Dependence on renal dialysis; Z99.2 - Dependence on renal dialysis; Z99.2 - Dependence on renal dialysis; N18.6 - End stage renal disease; N18.6 - End stage renal disease; N18.6 - End stage renal disease; Z79.4 - 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 Resume home regimen. (5) ESRD (end stage renal disease) on dialysis Code(s): N18.6 - END STAGE RENAL DISEASE; Z99.2 - DEPENDENCE ON RENAL DIALYSIS Status: Chronic Comment: ESRD on HD. (6) HTN (hypertension) Code(s): I10 - ESSENTIAL (PRIMARY) HYPERTENSION Status: Chronic Qualifiers: Hypertension type: essential hypertension Comment: Not at goal. Will restart home regimen. - Plan cont current plan of care, continue antibiotics, DVT proph w/heparin * . Review of Systems - Medications/Allergies Allergies/Adverse Reactions: Allergies Allergy/AdvReac Type Severity Reaction Status Date / Time No Known Allergies Allergy Verified 11/28/17 05:44 Medications: Current Medications Acetaminophen (Tylenol) 650 mg PO Q4H PRN PRN Reason: Headache/Fever or Pain Last Admin: 11/29/17 12:46 Dose: 650 mg Acetaminophen (Tylenol) 650 mg HI Q6H PRN PRN Reason: Headache/Fever or Pain Last Admin: 11/27/17 21:39 Dose: 650 mg Amlodipine Besylate (Norvasc) 5 mg PO DAILY [facility] Last Admin: 11/29/17 12:45 Dose: 5 mg Clonidine (Catapres) 0.1 mg PO Q4H PRN PRN Reason: Systolic BP > 180 Dextrose/Water (Dextrose 50%) 25 gm IVP PRN PRN PRN Reason: HYPOGLYCEMIA PROTOCOL Glucagon (Glucagon) 1 mg IM PRN PRN PRN Reason: HYPOGLYCEMIA PROTOCOL Heparin Sodium (Porcine) (Heparin) 5,000 units SC TID [facility] Last Admin: 11/29/17 14:59 Dose: Not Given Hydralazine HCl (Apresoline) 10 mg SLOW IVP Q4H PRN PRN Reason: SBP Greater Than 180 Last Admin: 11/29/17 05:56 Dose: 10 mg Dextrose/Water (D5w) 1,000 mls @ 0 mls/hr IV INF PRN; As Directed PRN Reason: HYPOGLYCEMIA PROTOCOL Ceftriaxone Sodium 1 gm/ (Sodium Chloride) 10 mls @ 120 mls/hr SLOW IVP 1200 EVERT Last Admin: 11/29/17 14:34 Dose: 10 mls Vancomycin HCl 1.25 gm/ Sodium (Chloride) 250 mls @ 166.667 mls/hr IVPB WILLCALL [facility] Vancomycin HCl 1 gm/ Device 200 mls @ 200 mls/hr IVPB [facility] Vancomycin HCl 750 mg/ Sodium (Chloride) 250 mls @ 250 mls/hr IVPB [facility] Vancomycin HCl 500 mg/ Sodium (Chloride) 100 mls @ 100 mls/hr IVPB [facility] Insulin Human Lispro (Humalog) 0 units SC .MILD SLIDING SCALE PRN; Protocol PRN Reason: MILD SLIDING SCALE Last Admin: 11/28/17 17:59 Dose: 6 unit Insulin Human Lispro (Humalog) 0 units SC .BEDTIME SLIDING SC PRN; Protocol PRN Reason: BEDTIME SLIDING SCALE Lactulose (Lactulose) 20 gm PO DAILYPRN PRN PRN Reason: Constipation Magnesium Hydroxide (Milk Of Magnesium) 30 ml PO DAILYPRN PRN PRN Reason: Constipation Miscellaneous Medication (Pharmacy To Dose) 1 each IVPB PRN PRN PRN Reason: Pharmacy to dose Hold Vancomycin For (Level >20) 0 each FS .AT DIALYSIS [facility] Ondansetron HCl (Zofran Odt) 4 mg PO Q6H PRN PRN Reason: Nausea/Vomiting Ondansetron HCl (Zofran) 4 mg IVP Q6H PRN PRN Reason: Nausea/Vomiting Sodium Chloride (Flush - Normal Saline) 10 ml IVF Q12HR [facility] Last Admin: 11/29/17 12:46 Dose: 10 ml Sodium Chloride (Flush - Normal Saline) 10 ml IVF PRN PRN PRN Reason: Saline Flush
--- NOTE | 2017-11-29 16:38 | PRG ---
DATE OF SERVICE: 11/29/2017 SUBJECTIVE: Patient was seen and examined at bedside and overnight events noted. Patient denies any shortness of breath or chest pain or palpitation. No history of nausea or vomiting or diarrhea or f ever or chills or cramps. OBJECTIVE: GENERAL: Obese female, in no apparent distress. VITAL SIGNS: Temperature 98, pulse 72, respiratory rate 18, blood pressure 144/63. HEENT: Atraumatic, normocephalic. Oral mucosa is moist. Neck: Supple Cardiovascular: S1 and S2 heard. Rate and rhythm regular. Respiratory: Clear to auscultation. Gastrointestinal: Abdomen is soft. Musculoskeletal: No tenderness, no edema. Dermatologic: No skin rash. Neurologic: Alert and awake and oriented x3. No focal neurologic deficits. Moving all the extremit ies. Psychiatric: Mood and affect normal. LABORATORY DATA: Potassium is 3.6, BUN is 28, creatinine is 3.7. ASSESSMENT AND PLAN: 1. End-stage renal disease, currently on hemodialysis, tolerated, Friday, , and Friday. 2. Hypokalemia, replaced. We will monitor potassium. 3. Edema. 4. Hypertension. 5. Anemia. Overall, renal function is stable. We will follow.
[2017-11-29] MEDS ORDERED: [UNRECOGNIZED DRUG - OTHER] SC SCH (17:00)
[2017-11-29] MEDS ORDERED: INSULIN ISOPHANE SC SCH (17:00)
[2017-11-29] MEDS ORDERED: INSULIN REGULAR SC SCH (17:00)
[2017-11-29] MEDS: HumaLOG 300 UNITS/3 ML VIAL SC PRN (17:13)
[2017-11-29] MEDS ORDERED: Heparin 10,000 UNITS/ 10 ML VIAL ONE (17:30)
[2017-11-29] MEDS: traMADol HCl 50 MG TAB PO PRN ×2 (17:53→21:39)
[2017-11-29] MEDS ORDERED: Albuterol Sulfate 2.5 mg/3 ml Neb NEB PRN (19:40)
[2017-11-29] MEDS: Carvedilol 25 MG TAB PO SCH (20:38)
[2017-11-29] MEDS: cloNIDine 0.1 MG TAB PO SCH (20:39)
[2017-11-29] MEDS: Gabapentin 100 MG CAP PO SCH (20:40)
[2017-11-29] MEDS: hydrALAZINE 25 MG TAB PO SCH (20:41)
[2017-11-29] MEDS ORDERED: Insulin NPH/Reg Insulin Hm 300 UNITS/3 ML VIAL SC SCH (21:00)
[2017-11-29] MEDS ORDERED: rOPINIRole HCl 1 MG TAB PO PRN (21:00)
[2017-11-30 06:21] LABS: #Eosinphils 0.1 thou/uL (0.0-0.7); #Lymphocytes 1.8 thou/uL (1.20-3.40); #Monocytes 0.6 thou/uL (0.11-0.59); #Neutrophils 4.3 thou/uL (1.40-6.50); %Basophils 0.1 % (0.0-1.0); %Eosinophils 1.9 % (0.0-10.0); %Lymphocytes 26.6 % (21.0-51.0); %Monocytes 8.2 % (0.0-10.0); %Neutrophils 63.2 % (42.0-75.0); Hemoglobin 8.8 g/dL (12.0-16.0); Mean Corpuscular HGB CONC 33.1 g/dL (32.0-36.0); Mean Corpuscular Hemoglobin 29.3 pg (27.0-31.0); Mean Corpuscular Volume 88.3 fl (81.0-99.0); Mean Platelet Volume 7.9 fL (7.4-10.4); Platelet Count 148 thou/uL (130-400); RBC Distribution Width 13.3 % (11.5-14.5); Red Blood Cell (RBC) Count 3.01 mill/uL (4.20-5.40); White Blood Cell (WBC) Count 6.8 thou/uL (4.8-10.8)
[2017-11-30 06:39] LABS: Anion Gap 9 mmol/L (10-20); BUN (Urea Nitrogen) 23 mg/dL (9.8-20.1); Calc. Creatinine Clearance 21 mL/min (70-130); Calcium 7.4 mg/dL (7.8-10.44); Carbon Dioxide 30 mmol/L (23-31); Chloride 100 mmol/L (98-107); Estimated GFR-MDRD 16; Potassium 3.6 mmol/L (3.5-5.1); Sodium 135 mmol/L (136-145)
[2017-11-30 06:46] LABS: Glucose 53 mg/dL (80-115)
[2017-11-30] MEDS: Aspirin 81 mg Enteric Coated Tablet PO SCH (09:25)
[2017-11-30] MEDS: hydrALAZINE 25 MG TAB PO SCH ×2 (09:25→20:55)
[2017-11-30] MEDS: Carvedilol 25 MG TAB PO SCH ×2 (09:25→20:51)
[2017-11-30] MEDS: Amlodipine 10 MG TAB PO SCH (09:25)
[2017-11-30] MEDS: cloNIDine 0.1 MG TAB PO SCH ×2 (09:25→20:54)
[2017-11-30] MEDS: Atorvastatin Calcium 40 MG TAB PO SCH (09:25)
[2017-11-30] MEDS: Heparin 5,000 UNITS/ML VIAL SC SCH ×3 (09:26→20:55)
[2017-11-30] MEDS: traMADol HCl 50 MG TAB PO PRN ×2 (09:29→15:31)
--- NOTE | 2017-11-30 11:49 | PDOC.PN ---
- Subjective Encounter Start Date: 11/30/17 Encounter Start Time: 12:00 Subjective: No complaints today. Reports feeling much better. -: No acute events overnight. - Objective MAR Reviewed: Yes Vital Signs & Weight: Vital Signs (12 hours) Temp Pulse Resp BP BP Pulse Ox 11/30/17 09:25 77 125/63 11/30/17 07:05 97.5 F L 77 16 125/63 98 11/30/17 04:00 98.8 F 67 18 102/52 L 96 11/30/17 00:00 98.8 F 67 18 102/52 L 96 Weight Weight 145 lb 1.6 oz I&O: 11/29/17 11/30/17 12/01/17 06:59 06:59 06:59 Intake Total 720 820 Output Total 1000 1000 Balance -280 -180 Result Diagrams: 11/30/17 06:03 11/30/17 06:03 Additional Labs: Accuchecks 11/29/17 11/29/17 11/29/17 21:16 16:21 12:42 POC Glucose 232 H 258 H 137 H 11/28/17 20:44 POC Glucose 243 H Phys Exam - Physical Examination Constitutional: NAD HEENT: PERRLA, moist MMs, sclera anicteric Neck: no JVD, supple, full ROM Respiratory: no wheezing, no rales, no rhonchi, clear to auscultation bilateral Cardiovascular: RRR, no significant murmur, no rub Gastrointestinal: soft, non-tender, no distention, positive bowel sounds Musculoskeletal: no edema, pulses present Neurological: non-focal, moves all 4 limbs Psychiatric: normal affect, A&O x 3 Skin: no rash, normal turgor Dx/Plan (1) PNA (pneumonia) Code(s): J18.9 - PNEUMONIA, UNSPECIFIED ORGANISM Status: Acute Qualifiers: Pneumonia type: due to methicillin-resistant Staphylococcus aureus (MRSA) Laterality: left Lung location: upper lobe of lung Qualified Code(s): J15.212 - Pneumonia due to Methicillin resistant Staphylococcus aureus Comment: Clinically improved. Blood culture grew MRSA, sensitive to Vancomycin. Infectious disease consulted. (2) Acute encephalopathy Code(s): G93.40 - ENCEPHALOPATHY, UNSPECIFIED Status: Resolved Comment: Likely 2/2 PNA. (3) COPD (chronic obstructive pulmonary disease) Status: Chronic Qualifiers: COPD type: unspecified COPD Qualified Code(s): J44.9 - Chronic obstructive pulmonary disease, unspecified Comment: Stable. Continue general pulm supportive measures, no exacerbation currently (4) DM type 2 (diabetes mellitus, type 2) Status: Chronic Qualifiers: Diabetes mellitus shelter insulin use: with superintendent marine oil terminal use Diabetes mellitus complication status: with kidney complications Diabetes mellitus complication detail: with chronic kidney disease Chronic kidney disease stage : on chronic dialysis Qualified Code(s): E11.22 - Type 2 diabetes mellitus with diabetic chronic kidney disease; N18.6 - End stage renal disease; Z99.2 - Dependence on renal dialysis; Z99.2 - Dependence on renal dialysis; Z99.2 - Dependence on renal dialysis; N18.6 - End stage renal disease; N18.6 - End stage renal disease; N18.6 - End stage renal disease; Z79.4 - superintendent marine oil terminal (current ) use of insulin; Z79.4 - superintendent marine oil terminal (current) use of insulin; Z79.4 - [facility] (current) use of insulin; Z79.4 - [facility] (current) use of insulin; Z99.2 - Dependence on renal dialysis Comment: Started on long acting insulin, SSI, hypoglycemia protocol and diabetic diet. (5) ESRD (end stage renal disease) on dialysis Code(s): N18.6 - END STAGE RENAL DISEASE; Z99.2 - DEPENDENCE ON RENAL DIALYSIS Status: Chronic Comment: ESRD on HD. (6) HTN (hypertension) Code(s): I10 - ESSENTIAL (PRIMARY) HYPERTENSION Status: Chronic Qualifiers: Hypertension type: essential hypertension Comment: Acieving better control since home regimen started. Monitor. - Plan cont current plan of care, continue antibiotics, DVT proph w/heparin * . Review of Systems - Medications/Allergies Allergies/Adverse Reactions: Allergies Allergy/AdvReac Type Severity Reaction Status Date / Time No Known Allergies Allergy Verified 11/28/17 05:44 Medications: Current Medications Acetaminophen (Tylenol) 650 mg PO Q4H PRN PRN Reason: Headache/Fever or Pain Last Admin: 11/29/17 12:46 Dose: 650 mg Acetaminophen (Tylenol) 650 mg [place] Q6H PRN PRN Reason: Headache/Fever or Pain Last Admin: 11/27/17 21:39 Dose: 650 mg Albuterol Sulfate (Ventolin) 2.5 mg NEB [id number] PRN PRN Reason: Wheezing Amlodipine Besylate (Norvasc) 10 mg PO DAILY [facility] Last Admin: 11/30/17 09:25 Dose: 10 mg Aspirin (Ecotrin) 81 mg PO DAILY [facility] Last Admin: 11/30/17 09:25 Dose: 81 mg Atorvastatin Calcium (Lipitor) 40 mg PO DAILY [facility] Last Admin: 11/30/17 09:25 Dose: 40 mg Carvedilol (Coreg) 6.25 mg PO BID [facility] Last Admin: 11/30/17 09:25 Dose: 6.25 mg Clonidine (Catapres) 0.1 mg PO Q4H PRN PRN Reason: Systolic BP > 180 Clonidine (Catapres) 0.1 mg PO BID [facility] Last Admin: 11/30/17 09:25 Dose: 0.1 mg Dextrose/Water (Dextrose 50%) 25 gm IVP PRN PRN PRN Reason: HYPOGLYCEMIA PROTOCOL Gabapentin (Neurontin) 200 mg PO [facility] Last Admin: 11/29/17 20:40 Dose: 200 mg Glucagon (Glucagon) 1 mg IM PRN PRN PRN Reason: HYPOGLYCEMIA PROTOCOL Heparin Sodium (Porcine) (Heparin) 5,000 units SC TID [facility] Last Admin: 11/30/17 09:26 Dose: 5,000 units Hydralazine HCl (Apresoline) 10 mg SLOW IVP Q4H PRN PRN Reason: SBP Greater Than 180 Last Admin: 11/29/17 05:56 Dose: 10 mg Hydralazine HCl (Apresoline) 25 mg PO BID [facility] Last Admin: 11/30/17 09:25 Dose: 25 mg Dextrose/Water (D5w) 1,000 mls @ 0 mls/hr IV INF PRN; As Directed PRN Reason: HYPOGLYCEMIA PROTOCOL Vancomycin HCl 1.25 gm/ Sodium (Chloride) 250 mls @ 166.667 mls/hr IVPB WILLCALL [facility] Vancomycin HCl 1 gm/ Device 200 mls @ 200 mls/hr IVPB WILLCALL [facility] Vancomycin HCl 750 mg/ Sodium (Chloride) 250 mls @ 250 mls/hr IVPB [facility]CALL [facility] Vancomycin HCl 500 mg/ Sodium (Chloride) 100 mls @ 100 mls/hr [facility] Insulin Human Isoph/Insulin Regular (Humulin 70/30) 10 units SC HS [facility] Insulin Human Lispro (Humalog) 0 units SC .MILD SLIDING SCALE PRN; Protocol PRN Reason: MILD SLIDING SCALE Last Admin: 11/29/17 17:13 Dose: 4 unit Insulin Human Lispro (Humalog) 0 units SC .BEDTIME SLIDING SC PRN; Protocol PRN Reason: BEDTIME SLIDING SCALE Lactulose (Lactulose) 20 gm PO DAILYPRN PRN PRN Reason: Constipation Magnesium Hydroxide (Milk Of Magnesium) 30 ml PO DAILYPRN PRN PRN Reason: Constipation Last Admin: 11/29/17 17:53 Dose: 30 ml Miscellaneous Medication (Pharmacy To Dose) 1 each IVPB PRN PRN PRN Reason: Pharmacy to dose Hold Vancomycin For (Level >20) 0 each FS .AT DIALYSIS [facility] Ondansetron HCl (Zofran Odt) 4 mg PO Q6H PRN PRN Reason: Nausea/Vomiting Ondansetron HCl (Zofran) 4 mg IVP Q6H PRN PRN Reason: Nausea/Vomiting Ropinirole HCl (Requip) 2 mg PO HS PRN PRN Reason: RESTLESSNESS Sodium Chloride (Flush - Normal Saline) 10 ml IVF Q12HR [facility] Last Admin: 11/30/17 09:26 Dose: 10 ml Sodium Chloride (Flush - Normal Saline) 10 ml IVF PRN PRN PRN Reason: Saline Flush Tramadol HCl (Ultram) 50 mg PO Q4H PRN PRN Reason: Pain Last Admin: 11/30/17 09:29 Dose: 50 mg
[2017-11-30] MEDS: HumaLOG 300 UNITS/3 ML VIAL SC PRN ×2 (12:27→17:35)
--- NOTE | 2017-11-30 13:04 | PRG ---
DATE OF SERVICE: 11/30/2017 SUBJECTIVE: Patient was seen and examined at bedside and overnight events noted. Patient denies any shortness of breath or chest pain or palpitation. No history of nausea or vomiting or diarrhea or f ever or chills or cramps. OBJECTIVE: GENERAL: This is a well-built female in no apparent distress. VITAL SIGNS: Temperature 97.5, pulse 77, respirations 16, blood pressure 125/63. HEENT: Atraumatic, normocephalic. Oral mucosa is moist. NECK: Supple. CARDIOVASCULAR: S1, S2 heard. Rate and rhythm regular. RESPIRATORY: Clear to auscultation. GASTROINTESTINAL: Abdomen is soft. MUSCULOSKELETAL: No tenderness, no edema. DERMATOLOGIC: No skin rash. NEUROLOGIC: Alert and awake and oriented x3. No focal neurologic deficits. Moving all the extremit ies. PSYCHIATRIC: Mood and affect normal. LABORATORY DATA: Potassium is 3.6, BUN is 73, creatinine is 2.9. ASSESSMENT AND PLAN: 1. End-stage renal disease, continue on hemodialysis as tolerated. 2. Edema, controlled. 3. Hypertension. 4. Anemia. 5. Continue dialysis Friday, , and Friday as tolerated.
--- NOTE | 2017-11-30 18:35 | CON ---
DATE OF CONSULTATION: 11/30/2017 REASON FOR CONSULTATION: Bacteremia. HISTORY OF PRESENT ILLNESS: A 62-year-old patient who has a history of type 2 diabetes with end-stag e renal disease on hemodialysis through a tunneled catheter, right IJ location; COPD admitted with marcial reilly, found by family with altered mental status and brought to the emergency room. No history of headaches, seizure activity, aspiration or fever. Initial findings, temperature 102.5 rectal, pulse 87, BP 129/45, O2 sat 100. Pertinent findings, pupils were equal. Neck was supple. Lungs with kelsy r breath sounds. Heart exam was normal. Abdomen was nontender. She was obtunded, but would wake up to painful stimuli, replies to questions were not intelligible. She had a chest x-ray on admission with nonspecific increased density of left perihilar, left suprahilar region. REVIEW OF SYSTEMS: Currently, Ms. Feng is awake. She is pleasant. Denies headaches, shortness o f breath, no tenderness at the catheter site. No abdominal pain, no diarrhea. No genitourinary symp toms. Other 10-point review of systems negative. PAST MEDICAL HISTORY: Type 2 diabetes, end-stage renal disease on hemodialysis with tunneled cathete r. I believe she has a right-sided Mikki fistula, which was placed by Dr. Alberts, dyslipidemia, and COPD. PAST SURGICAL HISTORY: Right shoulder repair, right total knee arthroplasty, ovarian cyst removal. FAMILY HISTORY: Noncontributory. SOCIAL HISTORY: Current smoker. MEDICATION LIST: Includes Tylenol, Ventolin, Norvasc, Ecotrin, Lipitor, Coreg, Catapres, Neurontin, heparin, insulin, lactulose, ondansetron, ropinirole, tramadol, vancomycin, and sliding scale. PHYSICAL EXAMINATION: VITAL SIGNS: T-max 103.4, now she is 98.0, blood pressure 111/55, pulse 63, respirations 18. SKIN: Shows a right tunneled hemodialysis catheter in the IJ with no inflammatory changes. She has a right Mikki fistula with a nice bruit. No lymphadenopathy. Ocular movements conjugate. Oral cav ity with dentures. NECK: Supple. LUNGS: Symmetric clear breath sounds. CARDIOVASCULAR: S1, S2, without murmurs. No S3, S4. ABDOMEN: Soft and not distended or tender. No ascites. No bladder distention. EXTREMITIES: No joint inflammatory activity. Pulses 1+ in dorsalis pedis, follows all commands. St rength is preserved in extremities. NEUROLOGIC: Cognitive function is much improved. LABORATORY DATA: White cell count down from 20 to 6.8, hemoglobin 8.8, platelets 148. Sodium 135, c reatinine 2.95, liver profile was normal. Albumin 2.2, total protein 4.9. Urinalysis greater than 5 0 wbcs and microbiology showed two sets of blood cultures with methicillin-resistant Staphylococcus a ureus. The RADHA for vancomycin was less or equal than 0.5. ASSESSMENT: 1. End-stage renal disease secondary to type 2 diabetes mellitus, on hemodialysis through a tunneled catheter. 2. Methicillin-resistant Staphylococcus aureus bacteremia with delirium which has improved after abhilash atment. All the possibilities such as endocarditis need to be evaluated. Hematogenous pneumonia is a possibility as well. Intraabdominal inflammatory processes, spine and bone and joint inflammatory processes are not apparent at this time. DISCUSSION: The patient will likely need removal and exchange of the hemodialysis catheter unless th e AV fistula can be used. That would be the best scenario since she would prevent further complicati ons related to new devices. She will need at least 4 weeks of IV vancomycin given through a sliding scale at dialysis after discharge and needs to be monitored for the development of distant sites of d issemination. Followup blood cultures need to be performed to verify resolution of bacteremia. We w ill consult General surgeon, Dr. Alberts.
[2017-11-30] MEDS: Gabapentin 100 MG CAP PO SCH (20:54)
[2017-11-30] MEDS: Insulin NPH/Reg Insulin Hm 300 UNITS/3 ML VIAL SC SCH (20:55)
[2017-12-01 05:16] LABS: #Eosinphils 0.2 thou/uL (0.0-0.7); #Lymphocytes 2.1 thou/uL (1.20-3.40); #Monocytes 0.5 thou/uL (0.11-0.59); #Neutrophils 3.2 thou/uL (1.40-6.50); %Basophils 0.4 % (0.0-1.0); %Eosinophils 2.9 % (0.0-10.0); %Lymphocytes 35.1 % (21.0-51.0); %Monocytes 8.3 % (0.0-10.0); %Neutrophils 53.3 % (42.0-75.0); Hemoglobin 8.7 g/dL (12.0-16.0); Mean Corpuscular Hemoglobin 29.2 pg (27.0-31.0); Mean Corpuscular Volume 88.5 fl (81.0-99.0); Mean Platelet Volume 8.2 fL (7.4-10.4); Platelet Count 146 thou/uL (130-400); RBC Distribution Width 13.4 % (11.5-14.5); Red Blood Cell (RBC) Count 2.96 mill/uL (4.20-5.40); White Blood Cell (WBC) Count 5.9 thou/uL (4.8-10.8)
[2017-12-01 05:27] LABS: Anion Gap 10 mmol/L (10-20); BUN (Urea Nitrogen) 29 mg/dL (9.8-20.1); Calc. Creatinine Clearance 16 mL/min (70-130); Calcium 7.4 mg/dL (7.8-10.44); Carbon Dioxide 28 mmol/L (23-31); Chloride 93 mmol/L (98-107); Estimated GFR-MDRD 12; Glucose 179 mg/dL (80-115); Potassium 4.3 mmol/L (3.5-5.1); Sodium 127 mmol/L (136-145)
[2017-12-01] MEDS: cloNIDine 0.1 MG TAB PO SCH ×2 (09:32→21:03)
[2017-12-01] MEDS: Aspirin 81 mg Enteric Coated Tablet PO SCH (09:33)
[2017-12-01] MEDS: hydrALAZINE 25 MG TAB PO SCH ×2 (09:33→21:03)
[2017-12-01] MEDS: Atorvastatin Calcium 40 MG TAB PO SCH (09:33)
[2017-12-01] MEDS: Carvedilol 25 MG TAB PO SCH ×2 (09:33→21:01)
[2017-12-01] MEDS: Amlodipine 10 MG TAB PO SCH (09:34)
[2017-12-01] MEDS: Heparin 5,000 UNITS/ML VIAL SC SCH ×3 (09:34→21:03)
--- NOTE | 2017-12-01 11:41 | PRG ---
DATE OF SERVICE: 12/01/2017 SUBJECTIVE: This is a 62-year-old female being seen for end-stage renal disease. Patient denies any nausea, vomiting or chest pain. PHYSICAL EXAMINATION: GENERAL: Patient is awake, alert. VITAL SIGNS: Afebrile, pulse 65, breathing 16, blood pressure 127/61. HEAD/NECK: Normocephalic. Atraumatic. EYES: EOMI. No deformity. EARS: Clear. No ulcers. NOSE: Intact. No lesions. MOUTH: Clear. No discharge. THROAT: Clear. No exudate. LUNGS: Clear. No crackles. CARDIAC: S1, S2. No rub. ABDOMEN: Benign. BS+. GENITALIA/RECTUM: Martin absent. BACK/EXTREMITIES: Edema 0+ Ulcer- NEUROLOGICAL: Alert and motor intact. SKIN: Rash- Bruise- LYMPHATICS: Edema- Ulcer- LABORATORY DATA: Show hemoglobin 8.7, creatinine 3.79. ASSESSMENT AND RECOMMENDATIONS: 1. Stage 6 chronic kidney disease, continue hemodialysis. 2. Hypertension, stable. 3. Anemia, stable. 4. Medications based on glomerular filtration rate are appropriate. We will do dialysis Friday, and Friday.
[2017-12-01] MEDS: HumaLOG 300 UNITS/3 ML VIAL SC PRN ×2 (12:19→17:23)
--- NOTE | 2017-12-01 13:54 | PDOC.PN ---
- Subjective Encounter Start Date: 12/01/17 Encounter Start Time: 13:54 Subjective: No complaints. Feels well -: No acute events overnight. - Objective Vital Signs & Weight: Vital Signs (12 hours) Temp Pulse Resp BP BP Pulse Ox 12/01/17 09:34 65 12/01/17 09:33 65 12/01/17 09:32 127/61 12/01/17 08:05 97.7 F 65 18 127/61 98 12/01/17 04:00 97.8 F 59 L 16 114/56 L 98 Weight Weight 146 lb 6.4 oz I&O: 11/30/17 12/01/17 12/02/17 06:59 06:59 06:59 Intake Total 820 240 Output Total 1000 300 Balance -180 -60 Result Diagrams: 12/01/17 04:57 12/01/17 04:57 Additional Labs: Accuchecks 12/01/17 11/30/17 11/30/17 11:17 20:32 16:42 POC Glucose 227 H 284 H 264 H 11/30/17 11/30/17 06:45 05:54 POC Glucose 142 H 54 L* Phys Exam - Physical Examination Constitutional: NAD HEENT: moist MMs, sclera anicteric Neck: supple, full ROM Respiratory: no wheezing, no rales, no rhonchi, clear to auscultation bilateral Cardiovascular: RRR, no significant murmur, no rub Gastrointestinal: soft, non-tender, no distention, positive bowel sounds Musculoskeletal: no edema, pulses present Neurological: non-focal, moves all 4 limbs Psychiatric: normal affect, A&O x 3 Skin: no rash, normal turgor Dx/Plan (1) PNA (pneumonia) Code(s): J18.9 - PNEUMONIA, UNSPECIFIED ORGANISM Status: Acute Qualifiers: Pneumonia type: due to methicillin-resistant Staphylococcus aureus (MRSA) Laterality: left Lung location: upper lobe of lung Qualified Code(s): J15.212 - Pneumonia due to Methicillin resistant Staphylococcus aureus Comment: Clinically improved. Blood culture grew MRSA, sensitive to Vancomycin. Infectious disease on board. General surgery consulted for catheter removal. Continue Vancomycin. (2) COPD (chronic obstructive pulmonary disease) Status: Chronic Qualifiers: COPD type: unspecified COPD Qualified Code(s): J44.9 - Chronic obstructive pulmonary disease, unspecified Comment: Stable. Continue general pulm supportive measures, no exacerbation currently (3) DM type 2 (diabetes mellitus, type 2) Status: Chronic Qualifiers: Diabetes mellitus snf insulin use: with snf use Diabetes mellitus complication status: with kidney complications Diabetes mellitus complication detail: with chronic kidney disease Chronic kidney disease stage : on chronic dialysis Qualified Code(s): E11.22 - Type 2 diabetes mellitus with diabetic chronic kidney disease; N18.6 - End stage renal disease; Z99.2 - Dependence on renal dialysis; Z99.2 - Dependence on renal dialysis; Z99.2 - Dependence on renal dialysis; N18.6 - End stage renal disease; N18.6 - End stage renal disease; N18.6 - End stage renal disease; Z79.4 - intermediate (current ) use of insulin; Z79.4 - intermediate (current) use of insulin; Z79.4 - intermediate (current) use of insulin; Z79.4 - termite exterminator helper (current) use of insulin; Z99.2 - Dependence on renal dialysis Comment: Started on long acting insulin, SSI, hypoglycemia protocol and diabetic diet. (4) ESRD (end stage renal disease) on dialysis Code(s): N18.6 - END STAGE RENAL DISEASE; Z99.2 - DEPENDENCE ON RENAL DIALYSIS Status: Chronic Comment: ESRD on HD. (5) HTN (hypertension) Code(s): I10 - ESSENTIAL (PRIMARY) HYPERTENSION Status: Chronic Qualifiers: Hypertension type: essential hypertension Comment: Controlled. (6) Acute encephalopathy Code(s): G93.40 - ENCEPHALOPATHY, UNSPECIFIED Status: Resolved Comment: Likely 2/2 PNA. - Plan cont current plan of care, plan discussed w/ family, continue antibiotics, out of bed/ambulate, DVT proph w/heparin f/u repeat blood cultures. * . Review of Systems - Medications/Allergies Allergies/Adverse Reactions: Allergies Allergy/AdvReac Type Severity Reaction Status Date / Time No Known Allergies Allergy Verified 11/28/17 05:44 Medications: Current Medications Acetaminophen (Tylenol) 650 mg PO Q4H PRN PRN Reason: Headache/Fever or Pain Last Admin: 11/29/17 12:46 Dose: 650 mg Acetaminophen (Tylenol) 650 mg SC Q6H PRN PRN Reason: Headache/Fever or Pain Last Admin: 03/22/18 21:39 Dose: 650 mg Albuterol Sulfate (Ventolin) 2.5 mg NEB [id number] PRN PRN Reason: Wheezing Amlodipine Besylate (Norvasc) 10 mg PO DAILY [facility] Last Admin: 12/01/17 09:34 Dose: 10 mg Aspirin (Ecotrin) 81 mg PO DAILY [facility] Last Admin: 12/01/17 09:33 Dose: 81 mg Atorvastatin Calcium (Lipitor) 40 mg PO DAILY [facility] Last Admin: 12/01/17 09:33 Dose: 40 mg Carvedilol (Coreg) 6.25 mg PO BID [facility] Last Admin: 12/01/17 09:33 Dose: 6.25 mg Clonidine (Catapres) 0.1 mg PO Q4H PRN PRN Reason: Systolic BP > 180 Clonidine (Catapres) 0.1 mg PO BID [facility] Last Admin: 12/01/17 09:32 Dose: 0.1 mg Dextrose/Water (Dextrose 50%) 25 gm IVP PRN PRN PRN Reason: HYPOGLYCEMIA PROTOCOL Gabapentin (Neurontin) 200 mg PO HS [facility] Last Admin: 11/30/17 20:54 Dose: 200 mg Glucagon (Glucagon) 1 mg IM PRN PRN PRN Reason: HYPOGLYCEMIA PROTOCOL Heparin Sodium (Porcine) (Heparin) 5,000 units SC TID [facility] Last Admin: 12/01/17 09:34 Dose: 5,000 units Hydralazine HCl (Apresoline) 10 mg SLOW IVP Q4H PRN PRN Reason: SBP Greater Than 180 Last Admin: 11/29/17 05:56 Dose: 10 mg Hydralazine HCl (Apresoline) 25 mg PO BID [facility] Last Admin: 12/01/17 09:33 Dose: 25 mg Dextrose/Water (D5w) 1,000 mls @ 0 mls/hr IV INF PRN; As Directed PRN Reason: HYPOGLYCEMIA PROTOCOL Vancomycin HCl 1.25 gm/ Sodium (Chloride) 250 mls @ 166.667 mls/hr IVPB WILLCALL [facility] Vancomycin HCl 1 gm/ Device 200 mls @ 200 mls/hr IVPB WILLCALL [facility] Vancomycin HCl 750 mg/ Sodium (Chloride) 250 mls @ 250 mls/hr IVPB WILLCALL [facility] Vancomycin HCl 500 mg/ Sodium (Chloride) 100 mls @ 100 mls/hr [facility] Insulin Human Isoph/Insulin Regular (Humulin 70/30) 10 units SC HS [facility] Last Admin: 11/30/17 20:55 Dose: 10 unit Insulin Human Lispro (Humalog) 0 units SC .MILD SLIDING SCALE PRN; Protocol PRN Reason: MILD SLIDING SCALE Last Admin: 12/01/17 12:19 Dose: 3 unit Insulin Human Lispro (Humalog) 0 units SC .BEDTIME SLIDING SC PRN; Protocol PRN Reason: BEDTIME SLIDING SCALE Lactulose (Lactulose) 20 gm PO DAILYPRN PRN PRN Reason: Constipation Magnesium Hydroxide (Milk Of Magnesium) 30 ml PO DAILYPRN PRN PRN Reason: Constipation Last Admin: 11/29/17 17:53 Dose: 30 ml Miscellaneous Medication (Pharmacy To Dose) 1 each IVPB PRN PRN PRN Reason: Pharmacy to dose Hold Vancomycin For (Level >20) 0 each FS .AT DIALYSIS [facility] Ondansetron HCl (Zofran Odt) 4 mg PO Q6H PRN PRN Reason: Nausea/Vomiting Ondansetron HCl (Zofran) 4 mg IVP Q6H PRN PRN Reason: Nausea/Vomiting Ropinirole HCl (Requip) 2 mg PO HS PRN PRN Reason: RESTLESSNESS Sodium Chloride (Flush - Normal Saline) 10 ml IVF Q12HR [facility] Last Admin: 12/01/17 09:35 Dose: 10 ml Sodium Chloride (Flush - Normal Saline) 10 ml IVF PRN PRN PRN Reason: Saline Flush Tramadol HCl (Ultram) 50 mg PO Q4H PRN PRN Reason: Pain Last Admin: 11/30/17 15:31 Dose: 50 mg
[2017-12-01] MEDS: Gabapentin 100 MG CAP PO SCH (21:03)
[2017-12-01] MEDS: Insulin NPH/Reg Insulin Hm 300 UNITS/3 ML VIAL SC SCH (21:04)
[2017-12-02 05:27] LABS: #Eosinphils 0.1 thou/uL (0.0-0.7); #Monocytes 0.5 thou/uL (0.11-0.59); #Neutrophils 3.4 thou/uL (1.40-6.50); %Basophils 0.6 % (0.0-1.0); %Eosinophils 2.3 % (0.0-10.0); %Lymphocytes 33.6 % (21.0-51.0); %Monocytes 8.2 % (0.0-10.0); %Neutrophils 55.4 % (42.0-75.0); Hemoglobin 8.4 g/dL (12.0-16.0); Mean Corpuscular HGB CONC 33.3 g/dL (32.0-36.0); Mean Corpuscular Hemoglobin 29.1 pg (27.0-31.0); Mean Corpuscular Volume 87.3 fl (81.0-99.0); Mean Platelet Volume 8.2 fL (7.4-10.4); Platelet Count 172 thou/uL (130-400); RBC Distribution Width 13.2 % (11.5-14.5); White Blood Cell (WBC) Count 6.1 thou/uL (4.8-10.8)
[2017-12-02 05:38] LABS: Anion Gap 10 mmol/L (10-20); BUN (Urea Nitrogen) 44 mg/dL (9.8-20.1); Calc. Creatinine Clearance 14 mL/min (70-130); Calcium 7.4 mg/dL (7.8-10.44); Carbon Dioxide 26 mmol/L (23-31); Chloride 95 mmol/L (98-107); Estimated GFR-MDRD 11; Glucose 217 mg/dL (80-115); Potassium 4.6 mmol/L (3.5-5.1); Sodium 126 mmol/L (136-145)
[2017-12-02] MEDS ORDERED: Lidocaine 1% w/Epinephrine 1:100K 20 ML VIAL NERVE BLCK SCH (09:00)
[2017-12-02] MEDS: Atorvastatin Calcium 40 MG TAB PO SCH (09:44)
[2017-12-02] MEDS: cloNIDine 0.1 MG TAB PO SCH ×2 (09:45→21:27)
[2017-12-02] MEDS: Amlodipine 10 MG TAB PO SCH (09:45)
[2017-12-02] MEDS: Aspirin 81 mg Enteric Coated Tablet PO SCH (09:45)
[2017-12-02] MEDS: Carvedilol 25 MG TAB PO SCH ×2 (09:45→21:26)
[2017-12-02] MEDS: hydrALAZINE 25 MG TAB PO SCH ×2 (09:45→21:23)
[2017-12-02] MEDS: Heparin 5,000 UNITS/ML VIAL SC SCH ×3 (09:46→21:29)
[2017-12-02] MEDS ORDERED: Lidocaine 1% (PF) 30 ML VIAL ONE ×2 (09:55→10:39)
--- NOTE | 2017-12-02 10:28 | PRG ---
DATE OF SERVICE: 12/02/2017 SUBJECTIVE: Sitting up by the bedside. There is no distress, very hard of hearing. Mild dyspnea, c oughing sometimes. Catheter has not yet been removed. No abdominal pain, no back pain. OBJECTIVE: VITAL SIGNS: T-max 98.8, blood pressure 108/53, pulse 64, respirations 18, O2 sat 93%-95%. GENERAL: Disheveled, awake, oriented. HEENT: Ocular movements conjugate. LUNGS: With symmetric clear breath sounds. CARDIOVASCULAR: S1, S2. ABDOMEN: Soft. Catheter site with no drainage. EXTREMITIES: Moves all extremities. LABORATORY DATA: White cell count 5.9, hemoglobin 8.7, platelets 146, normal differential. Chemistr y, not remarkable. Two further sets of blood cultures from , thus far, no growth. ASSESSMENT AND DISCUSSION: End-stage renal disease secondary to type 2 diabetes mellitus on hemodial ysis with tunneled catheter, methicillin resistant Staphylococcus aureus bacteremia with delirium whi ch has improved with likely catheter colonization. Pending catheter removal. Hopefully, we will be able to use the AV fistula in the right upper extremity for access.
--- NOTE | 2017-12-02 11:31 | PRG ---
DATE OF SERVICE: 12/02/2017 SUBJECTIVE: A 62-year-old female being seen for end-stage renal disease. Patient denies any nausea, vomiting, chest pain. PHYSICAL EXAMINATION: GENERAL: Patient is awake, alert. VITAL SIGNS: Afebrile, pulse 65, breathing 16, blood pressure 139/60. HEAD/NECK: Normocephalic. Atraumatic. EYES: EOMI. No deformity. EARS: Clear. No ulcers. NOSE: Intact. No lesions. MOUTH: Clear. No discharge. THROAT: Clear. No exudate. LUNGS: Clear. No crackles. CARDIAC: S1, S2. No rub. ABDOMEN: Benign. BS+. GENITALIA/RECTUM: Martin absent. BACK/EXTREMITIES: Edema 0+ Ulcer- NEUROLOGICAL: Alert and motor intact. SKIN: Rash- Bruise- LYMPHATICS: Edema- Ulcer- LABORATORY DATA: Show hemoglobin 8.4, creatinine 4.2. ASSESSMENT AND RECOMMENDATIONS: 1. Stage 6 chronic kidney disease. Plan hemodialysis on Friday, Friday, and Friday. 2. Hypertension, stable. 3. Anemia, stable. Access is not working. Would recommend new access. We will consult Surgery.
--- NOTE | 2017-12-02 11:45 | PDOC.PN ---
- Subjective Encounter Start Date: 12/02/17 Encounter Start Time: 07:40 Pt seen for followup re: bacteremia. Denies chest pain, shortness of breath, fevers or chills. - Objective MAR Reviewed: Yes Vital Signs & Weight: Vital Signs (12 hours) Temp Pulse Resp BP Pulse Ox 12/02/17 09:39 99.5 F 65 18 139/63 96 12/02/17 08:21 98.8 F 64 18 12/02/17 04:00 98.8 F 64 18 108/53 L 93 L Weight Weight 300 lb I&O: 12/01/17 12/02/17 12/03/17 06:59 06:59 06:59 Intake Total 240 Output Total 300 Balance -60 Result Diagrams: 12/02/17 04:56 12/02/17 04:56 Additional Labs: Accuchecks 12/02/17 12/01/17 12/01/17 06:04 20:40 16:16 POC Glucose 231 H 294 H 231 H 12/01/17 12/01/17 11:17 05:56 POC Glucose 227 H 189 H EKG Reviewed by me: Yes (Tele: NSR) Phys Exam - Physical Examination Constitutional: NAD HEENT: PERRLA, moist MMs, sclera anicteric, oral pharynx no lesions Neck: no nodes, no JVD, supple, full ROM Respiratory: no wheezing, no rales, no rhonchi, clear to auscultation bilateral Cardiovascular: RRR, no rub Gastrointestinal: soft, non-tender, positive bowel sounds Neurological: moves all 4 limbs Psychiatric: normal affect Skin: no rash Dx/Plan (1) MRSA bacteremia Code(s): R78.81 - BACTEREMIA Status: Acute Comment: continue vancomycin (2) PNA (pneumonia) Code(s): J18.9 - PNEUMONIA, UNSPECIFIED ORGANISM Status: Acute Qualifiers: Pneumonia type: due to methicillin-resistant Staphylococcus aureus (MRSA) Laterality: left Lung location: upper lobe of lung Qualified Code(s): J15.212 - Pneumonia due to Methicillin resistant Staphylococcus aureus Comment: Continue vancomycin (3) DM type 2 (diabetes mellitus, type 2) Status: Chronic Qualifiers: Diabetes mellitus predatory animal exterminator insulin use: with predatory animal exterminator use Diabetes mellitus complication status: with kidney complications Diabetes mellitus complication detail: with chronic kidney disease Chronic kidney disease stage : on chronic dialysis Qualified Code(s): E11.22 - Type 2 diabetes mellitus with diabetic chronic kidney disease; N18.6 - End stage renal disease; Z99.2 - Dependence on renal dialysis; Z99.2 - Dependence on renal dialysis; Z99.2 - Dependence on renal dialysis; N18.6 - End stage renal disease; N18.6 - End stage renal disease; N18.6 - End stage renal disease; Z79.4 - MCFP (current ) use of insulin; Z79.4 - petroleum terminal plant operator (current) use of insulin; Z79.4 - petroleum terminal plant operator (current) use of insulin; Z79.4 - MCFP (current) use of insulin; Z99.2 - Dependence on renal dialysis Comment: Continue accuchecks, insulin sliding scale (4) Dyslipidemia Code(s): E78.5 - HYPERLIPIDEMIA, UNSPECIFIED Status: Chronic (5) ESRD (end stage renal disease) on dialysis Code(s): N18.6 - END STAGE RENAL DISEASE; Z99.2 - DEPENDENCE ON RENAL DIALYSIS Status: Chronic Comment: Dialysis per nephrology service (6) GERD (gastroesophageal reflux disease) Code(s): K21.9 - GASTRO-ESOPHAGEAL REFLUX DISEASE WITHOUT ESOPHAGITIS Status: Chronic Qualifiers: Esophagitis presence: esophagitis presence not specified Qualified Code(s) : K21.9 - Gastro-esophageal reflux disease without esophagitis (7) HTN (hypertension) Code(s): I10 - ESSENTIAL (PRIMARY) HYPERTENSION Status: Chronic Qualifiers: Hypertension type: essential hypertension Comment: Monitor vital signs, titrate antihypertensives as needed (8) Acute encephalopathy Code(s): G93.40 - ENCEPHALOPATHY, UNSPECIFIED Status: Resolved - Plan * . Review of Systems - Review of Systems Constitutional: negative: fever, chills, sweats, weakness, malaise Respiratory: negative: Cough, Dry, Shortness of Breath, Hemoptysis, SOB with Excertion, Pleuritic Pain, Sputum, Wheezing Cardiovascular: negative: chest pain, palpitations, orthopnea, paroxysmal nocturnal dyspnea, edema, light headedness Gastrointestinal: negative: Nausea, Vomiting, Abdominal Pain, Diarrhea, Constipation, Melena, Hematochezia Genitourinary: negative: Dysuria, Frequency, Incontinence, Hematuria, Retention - Medications/Allergies Allergies/Adverse Reactions: Allergies Allergy/AdvReac Type Severity Reaction Status Date / Time No Known Allergies Allergy Verified 11/28/17 05:44 Medications: Current Medications Acetaminophen (Tylenol) 650 mg PO Q4H PRN PRN Reason: Headache/Fever or Pain Last Admin: 11/29/17 12:46 Dose: 650 mg Acetaminophen (Tylenol) 650 mg RI Q6H PRN PRN Reason: Headache/Fever or Pain Last Admin: 11/27/17 21:39 Dose: 650 mg Albuterol Sulfate (Ventolin) 2.5 mg NEB [id number] PRN PRN Reason: Wheezing Amlodipine Besylate (Norvasc) 10 mg PO DAILY [facility] Last Admin: 12/02/17 09:45 Dose: 10 mg Aspirin (Ecotrin) 81 mg PO DAILY [facility] Last Admin: 12/02/17 09:45 Dose: 81 mg Atorvastatin Calcium (Lipitor) 40 mg PO DAILY [facility] Last Admin: 12/02/17 09:44 Dose: 40 mg Carvedilol (Coreg) 6.25 mg PO BID [facility] Last Admin: 12/02/17 09:45 Dose: 6.25 mg Clonidine (Catapres) 0.1 mg PO Q4H PRN PRN Reason: Systolic BP > 180 Clonidine (Catapres) 0.1 mg PO BID [facility] Last Admin: 12/02/17 09:45 Dose: 0.1 mg Dextrose/Water (Dextrose 50%) 25 gm IVP PRN PRN PRN Reason: HYPOGLYCEMIA PROTOCOL Gabapentin (Neurontin) 200 mg PO HS [facility] Last Admin: 12/01/17 21:03 Dose: 200 mg Glucagon (Glucagon) 1 mg IM PRN PRN PRN Reason: HYPOGLYCEMIA PROTOCOL Heparin Sodium (Porcine) (Heparin) 5,000 units SC TID [facility] Last Admin: 12/02/17 09:46 Dose: 5,000 units Hydralazine HCl (Apresoline) 10 mg SLOW IVP Q4H PRN PRN Reason: SBP Greater Than 180 Last Admin: 11/29/17 05:56 Dose: 10 mg Hydralazine HCl (Apresoline) 25 mg PO BID [facility] Last Admin: 12/02/17 09:45 Dose: 25 mg Dextrose/Water (D5w) 1,000 mls @ 0 mls/hr IV INF PRN; As Directed PRN Reason: HYPOGLYCEMIA PROTOCOL Vancomycin HCl 1.25 gm/ Sodium (Chloride) 250 mls @ 166.667 mls/hr IVPB WILLCALL [facility] Vancomycin HCl 1 gm/ Device 200 mls @ 200 mls/[facility] Vancomycin HCl 750 mg/ Sodium (Chloride) 250 mls @ 250 mls/hr IVPB [facility] Vancomycin HCl 500 mg/ Sodium (Chloride) 100 mls @ 100 mls/hr IVPB [facility] Insulin Human Isoph/Insulin Regular (Humulin 70/30) 10 units SC HS [facility] Last Admin: 12/01/17 21:04 Dose: 10 unit Insulin Human Lispro (Humalog) 0 units SC .MILD SLIDING SCALE PRN; Protocol PRN Reason: MILD SLIDING SCALE Last Admin: 12/01/17 17:23 Dose: 3 unit Insulin Human Lispro (Humalog) 0 units SC .BEDTIME SLIDING SC PRN; Protocol PRN Reason: BEDTIME SLIDING SCALE Lactulose (Lactulose) 20 gm PO DAILYPRN PRN PRN Reason: Constipation Lidocaine/Epinephrine (Xylocaine 1% W/ Epi 1:100k) 30 ml NERVE BLCK NOW [facility] Stop: 12/02/17 12:00 Magnesium Hydroxide (Milk Of Magnesium) 30 ml PO DAILYPRN PRN PRN Reason: Constipation Last Admin: 11/29/17 17:53 Dose: 30 ml Miscellaneous Medication (Pharmacy To Dose) 1 each IVPB PRN PRN PRN Reason: Pharmacy to dose Hold Vancomycin For (Level >20) 0 each FS .AT DIALYSIS [facility] Ondansetron HCl (Zofran Odt) 4 mg PO Q6H PRN PRN Reason: Nausea/Vomiting Ondansetron HCl (Zofran) 4 mg IVP Q6H PRN PRN Reason: Nausea/Vomiting Ropinirole HCl (Requip) 2 mg PO HS PRN PRN Reason: RESTLESSNESS Sodium Chloride (Flush - Normal Saline) 10 ml IVF Q12HR [facility] Last Admin: 12/02/17 09:46 Dose: 10 ml Sodium Chloride (Flush - Normal Saline) 10 ml IVF PRN PRN PRN Reason: Saline Flush Tramadol HCl (Ultram) 50 mg PO Q4H PRN PRN Reason: Pain Last Admin: 11/30/17 15:31 Dose: 50 mg
[2017-12-02] MEDS: HumaLOG 300 UNITS/3 ML VIAL SC PRN ×2 (12:55→18:34)
--- NOTE | 2017-12-02 20:37 | OP ---
DATE OF PROCEDURE: 12/02/2017 PREOPERATIVE DIAGNOSES: Line bacteremia, end-stage renal disease, noncompliance in follow up in the office. POSTOPERATIVE DIAGNOSES: Line bacteremia, end-stage renal disease, noncompliance in follow up in the office. PROCEDURE: Removal of hemodialysis catheter, right IJ cuffed tunneled. SURGEON: Morris Alberts M.D. ANESTHESIA: 1% Xylocaine with epinephrine 10 mL. PROCEDURE IN DETAIL: At the patient's bedside, catheter exit site over the right chest was cleansed with alcohol. Suture removed. Local anesthetic infiltrated into skin and subcutaneous tissue with a 25 gauge needle and catheter and cuff removed, dissected free and pressure held to hemostatic. The patient tolerated the procedure well.
[2017-12-02] MEDS: Gabapentin 100 MG CAP PO SCH (21:22)
[2017-12-02] MEDS: Insulin NPH/Reg Insulin Hm 300 UNITS/3 ML VIAL SC SCH (21:29)
[2017-12-03] MEDS: HumaLOG 300 UNITS/3 ML VIAL SC PRN (00:59)
[2017-12-03 05:50] LABS: #Eosinphils 0.2 thou/uL (0.0-0.7); #Lymphocytes 2.2 thou/uL (1.20-3.40); #Monocytes 0.5 thou/uL (0.11-0.59); #Neutrophils 3.7 thou/uL (1.40-6.50); %Basophils 0.6 % (0.0-1.0); %Eosinophils 2.4 % (0.0-10.0); %Lymphocytes 33.3 % (21.0-51.0); %Monocytes 7.2 % (0.0-10.0); %Neutrophils 56.5 % (42.0-75.0); Hemoglobin 7.8 g/dL (12.0-16.0); Mean Corpuscular HGB CONC 33.2 g/dL (32.0-36.0); Mean Corpuscular Hemoglobin 29.4 pg (27.0-31.0); Mean Corpuscular Volume 88.5 fl (81.0-99.0); Mean Platelet Volume 8.6 fL (7.4-10.4); Platelet Count 194 thou/uL (130-400); Red Blood Cell (RBC) Count 2.64 mill/uL (4.20-5.40); White Blood Cell (WBC) Count 6.6 thou/uL (4.8-10.8)
[2017-12-03 06:05] LABS: Anion Gap 10 mmol/L (10-20); BUN (Urea Nitrogen) 44 mg/dL (9.8-20.1); Calc. Creatinine Clearance 31 mL/min (70-130); Calcium 7.4 mg/dL (7.8-10.44); Carbon Dioxide 25 mmol/L (23-31); Chloride 94 mmol/L (98-107); Estimated GFR-MDRD 11; Glucose 146 mg/dL (80-115); Potassium 4.2 mmol/L (3.5-5.1); Sodium 125 mmol/L (136-145)
[2017-12-03] MEDS ORDERED: Heparin 10,000 UNITS/ 10 ML VIAL ONE (07:37)
[2017-12-03] MEDS: Amlodipine 10 MG TAB PO SCH (09:41)
[2017-12-03] MEDS: cloNIDine 0.1 MG TAB PO SCH ×2 (09:42→21:49)
[2017-12-03] MEDS: Atorvastatin Calcium 40 MG TAB PO SCH (09:42)
[2017-12-03] MEDS: Carvedilol 25 MG TAB PO SCH (09:42)
[2017-12-03] MEDS: Aspirin 81 mg Enteric Coated Tablet PO SCH (09:42)
[2017-12-03] MEDS: Heparin 5,000 UNITS/ML VIAL SC SCH ×2 (09:43→21:51)
[2017-12-03] MEDS: hydrALAZINE 25 MG TAB PO SCH ×2 (09:43→21:49)
[2017-12-03] MEDS ORDERED: Epoetin (ESRD) 10,000 UNITS/ML VIAL SC SCH (10:00)
[2017-12-03] MEDS ORDERED: Acetaminophen 325 MG TAB PO PRN (10:26)
[2017-12-03] MEDS ORDERED: Milk Of Magnesia 30 ML UDCUP PO PRN (10:27)
[2017-12-03] MEDS ORDERED: Ondansetron ODT 4 MG TAB PO PRN (10:27)
[2017-12-03] MEDS ORDERED: cloNIDine 0.1 MG TAB PO PRN (10:28)
[2017-12-03] MEDS ORDERED: rOPINIRole HCl 1 MG TAB PO PRN (10:28)
[2017-12-03] MEDS ORDERED: traMADol HCl 50 MG TAB PO PRN (10:29)
--- NOTE | 2017-12-03 10:29 | PRG ---
DATE OF SERVICE: 12/03/2017 SUBJECTIVE: A 62-year-old female being seen for end-stage renal disease. The patient tolerated dial ysis well. Denies any nausea, vomiting, or chest pain. PHYSICAL EXAMINATION: GENERAL: Patient is awake, alert. VITAL SIGNS: Afebrile, pulse 61, breathing 16, blood pressure 126/66. HEAD/NECK: Normocephalic. Atraumatic. EYES: EOMI. No deformity. EARS: Clear. No ulcers. NOSE: Intact. No lesions. MOUTH: Clear. No discharge. THROAT: Clear. No exudate. LUNGS: Clear. No crackles. CARDIAC: S1, S2. No rub. ABDOMEN: Benign. BS+. GENITALIA/RECTUM: Martin absent. BACK/EXTREMITIES: Edema 0+ Ulcer- NEUROLOGICAL: Alert and motor intact. SKIN: Rash- Bruise- LYMPHATICS: Edema- Ulcer- LABORATORY DATA: Show hemoglobin 7.8. ASSESSMENT AND RECOMMENDATIONS: 1. Stage 6 chronic kidney disease, continue hemodialysis. 2. Hypertension, stable. 3. Anemia. Start Epogen. Anemia is trended downward. 4. Medications based on glomerular filtration rate are appropriate.
--- NOTE | 2017-12-03 12:23 | CON ---
DATE OF CONSULT: 12/02/2017 HISTORY OF PRESENT ILLNESS: Ashely Feng is a 62-year-old female with end-stage renal disease who, 04/05/2016, I drained buttock abscesses which healed secondarily. Next, I saw her on 08/22/2017, she had a right arm fistula placed right IJ cuffed tunnel dialysis catheter central line. The dialysis fistula right arm was actually placed on 08/25/2017. This was the best arm according to vein mapping . Perforating branch antecubital vein to the proximal artery was used for arterial inflow with outfl ow both the cephalic and basilic vein. Thrombectomy without return of thrombus was performed. The p atient was noted to have right upper extremity deltopectoral incision from an ORIF of a humerus fract ure in the past. Probably catheter had been passed out the cephalic vein without obstruction without return of thrombus. The patient has not followed up in my office. She now reports for bacteremia s uspect to be line sepsis with 11/27/2017. Blood cultures x2, MRSA positive. Dr. Rodriguez has seen her. She is receiving vancomycin. I have been asked to see her regarding line bacteremia. Plan is to r emove her right IJ cuffed tunnel dialysis catheter, give her a catheter free interval for 24 hours an d plan a new hemodialysis catheter tomorrow. In addition, we will obtain a fistulogram of her right arm and I suspect from clinical exam there cephalic vein is occluded in the mid upper arm and outflow s primary for basilic vein and that she will need a basilic vein transposition fistula to gain functi oning fistula. We would plan that tomorrow under the same anesthetic. We will obtain the fistulogra m in the morning. ALLERGIES: None. TOBACCO: None. ALCOHOL: None. HOME MEDICATIONS: Tramadol p.r.n., Requip at bedtime p.r.n. 1 mg, hydralazine 25 b.i.d., clonidine 0 .1 mg b.i.d., insulin 21 units subcu a.c. 15 units subcu at bedtime, gabapentin 2 mg at bedtime, carv edilol 6.25 mg b.i.d., Lipitor 40 mg daily, aspirin 81 mg daily, amlodipine 10 mg daily, albuterol escobedo lfate 2 puffs INH q.6 hours p.r.n. CODE STATUS: The patient is a FULL CODE. PAST SURGICAL HISTORY: Right upper extremity ORIF humerus fracture in the past, left knee replacemen t, ovarian cyst placement. No history of colonoscopy, right arm fistula, hemodialysis catheter place ment in 08/2017. PAST MEDICAL HISTORY: End-stage renal disease, obesity, metabolic syndrome, hypertension, diabetes m ellitus type 2. SOCIAL HISTORY: History of tobacco abuse, history of chronic anemia. Alcohol or drug use, none. PHYSICAL EXAMINATION: VITAL SIGNS: Height 4 feet 11 inches, weight 300 pounds, 60 BMI. HEENT: Unremarkable. LUNGS: Clear to auscultation. CARDIAC: Regular rate and rhythm without murmur or gallop. ABDOMEN: Soft, nontender, obese. Right upper arm fistula, good thrill and bruit, but the cephalic vein seems to be occluded in the mid upper arm. Outflow seems primarily to basilic vein. ASSESSMENT AND PLAN: 1. End-stage renal disease with bacteremia from line sepsis. We will remove her hemodialysis cathet er today. Plan placement of a new of tomorrow and plan placement of a right arm basilic vein transpo sition fistula after verifying the anatomy with a fistulogram in the morning. 2. Diabetes mellitus. 3. Hypertension. 4. Anemia, chronic.
[2017-12-03 13:06] VITALS: BMI 31.8
--- NOTE | 2017-12-03 14:32 | PDOC.PN ---
- Subjective Encounter Start Date: 12/03/17 Encounter Start Time: 07:40 Pt seen for followup re: bacteremia. Denies chest pain, shortness of breath, fevers or chills. - Objective MAR Reviewed: Yes Vital Signs & Weight: Vital Signs (12 hours) Temp Pulse Resp BP BP Pulse Ox 12/03/17 11:35 98.1 F 63 14 115/67 96 12/03/17 09:43 61 120/59 L 12/03/17 09:42 126/66 12/03/17 09:41 61 120/59 L 12/03/17 08:00 97.6 F 61 14 96 12/03/17 07:30 97.6 F 61 14 120/59 L 96 12/03/17 03:58 98.3 F 59 L 15 102/59 L 95 Weight Admit Weight 140 lb 2 oz Weight 157 lb 14.4 oz I&O: 12/02/17 12/03/17 12/04/17 06:59 06:59 06:59 Intake Total 854 Balance 854 Result Diagrams: 12/03/17 05:12 12/03/17 05:12 Additional Labs: Accuchecks 12/03/17 12/03/17 12/02/17 05:32 00:42 23:12 POC Glucose 150 H 293 H 285 H 12/02/17 20:59 POC Glucose 350 H Phys Exam - Physical Examination Constitutional: NAD HEENT: moist MMs Neck: no nodes, supple Respiratory: clear to auscultation bilateral Cardiovascular: RRR Gastrointestinal: soft, non-tender Neurological: moves all 4 limbs Psychiatric: normal affect Dx/Plan (1) MRSA bacteremia Code(s): R78.81 - BACTEREMIA Status: Acute Comment: On vancomycin, continue (2) PNA (pneumonia) Code(s): J18.9 - PNEUMONIA, UNSPECIFIED ORGANISM Status: Acute Qualifiers: Pneumonia type: due to methicillin-resistant Staphylococcus aureus (MRSA) Laterality: left Lung location: upper lobe of lung Qualified Code(s): J15.212 - Pneumonia due to Methicillin resistant Staphylococcus aureus Comment: On vancomycin (3) DM type 2 (diabetes mellitus, type 2) Status: Chronic Qualifiers: Diabetes mellitus shelter insulin use: with terminal operator use Diabetes mellitus complication status: with kidney complications Diabetes mellitus complication detail: with chronic kidney disease Chronic kidney disease stage : on chronic dialysis Qualified Code(s): E11.22 - Type 2 diabetes mellitus with diabetic chronic kidney disease; N18.6 - End stage renal disease; Z99.2 - Dependence on renal dialysis; Z99.2 - Dependence on renal dialysis; Z99.2 - Dependence on renal dialysis; N18.6 - End stage renal disease; N18.6 - End stage renal disease; N18.6 - End stage renal disease; Z79.4 - longterm (current ) use of insulin; Z79.4 - middle or intermediate school principal (current) use of insulin; Z79.4 - longterm (current) use of insulin; Z79.4 - middle or intermediate school principal (current) use of insulin; Z99.2 - Dependence on renal dialysis Comment: accuchecks, insulin sliding scale (4) Dyslipidemia Code(s): E78.5 - HYPERLIPIDEMIA, UNSPECIFIED Status: Chronic (5) ESRD (end stage renal disease) on dialysis Code(s): N18.6 - END STAGE RENAL DISEASE; Z99.2 - DEPENDENCE ON RENAL DIALYSIS Status: Chronic Comment: Dialysis per nephrology service (6) GERD (gastroesophageal reflux disease) Code(s): K21.9 - GASTRO-ESOPHAGEAL REFLUX DISEASE WITHOUT ESOPHAGITIS Status: Chronic Qualifiers: Esophagitis presence: esophagitis presence not specified Qualified Code(s) : K21.9 - Gastro-esophageal reflux disease without esophagitis (7) HTN (hypertension) Code(s): I10 - ESSENTIAL (PRIMARY) HYPERTENSION Status: Chronic Qualifiers: Hypertension type: essential hypertension Comment: titrate antihypertensives as needed - Plan continue antibiotics, out of bed/ambulate * . Pt going for fistulogram today Review of Systems - Review of Systems Constitutional: negative: fever, chills, sweats, weakness, malaise Respiratory: negative: Cough, Dry, Shortness of Breath, Hemoptysis, SOB with Excertion, Pleuritic Pain, Sputum, Wheezing Cardiovascular: negative: chest pain, palpitations, orthopnea, paroxysmal nocturnal dyspnea, edema, light headedness - Medications/Allergies Allergies/Adverse Reactions: Allergies Allergy/AdvReac Type Severity Reaction Status Date / Time No Known Allergies Allergy Verified 11/28/17 05:44 Medications: Current Medications Acetaminophen (Tylenol) 650 mg NM Q6H PRN PRN Reason: Headache/Fever or Pain Last Admin: 11/27/17 21:39 Dose: 650 mg Acetaminophen (Tylenol) 650 mg PO Q4H PRN PRN Reason: Headache/Fever or Pain Albuterol Sulfate (Ventolin) 2.5 mg NEB [id number] PRN PRN Reason: Wheezing Clonidine (Catapres) 0.1 mg PO Q4H PRN PRN Reason: Systolic BP > 180 Dextrose/Water (Dextrose 50%) 25 gm IVP PRN PRN PRN Reason: HYPOGLYCEMIA PROTOCOL Epoetin Khanh (Procrit) 10,000 units SC Q7D [facility] Last Admin: 12/03/17 11:14 Dose: 10,000 units Gabapentin (Neurontin) 200 mg PO HS [facility] Glucagon (Glucagon) 1 mg IM PRN PRN PRN Reason: HYPOGLYCEMIA PROTOCOL Hydralazine HCl (Apresoline) 10 mg SLOW IVP Q4H PRN PRN Reason: SBP Greater Than 180 Last Admin: 11/29/17 05:56 Dose: 10 mg Dextrose/Water (D5w) 1,000 mls @ 0 mls/hr IV INF PRN; As Directed PRN Reason: HYPOGLYCEMIA PROTOCOL Vancomycin HCl 1.25 gm/ Sodium (Chloride) 250 mls @ 166.667 mls/hr IVPB WILLCALL [facility] Vancomycin HCl 1 gm/ Device 200 mls @ 200 mls/hr IVPB [facility] Vancomycin HCl 750 mg/ Sodium (Chloride) 250 mls @ 250 [facility]ls[facility] Vancomycin HCl 500 mg/ Sodium (Chloride) 100 mls @ 100 mls/hr IVPB [facility] Insulin Human Isoph/Insulin Regular (Humulin 70/30) 10 units SC [facility] Last Admin: 12/02/17 21:29 Dose: 10 unit Insulin Human Lispro (Humalog) 0 units SC .MILD SLIDING SCALE PRN; Protocol PRN Reason: MILD SLIDING SCALE Last Admin: 12/02/17 18:34 Dose: 3 unit Insulin Human Lispro (Humalog) 0 units SC .BEDTIME SLIDING SC PRN; Protocol PRN Reason: BEDTIME SLIDING SCALE Last Admin: 12/03/17 00:59 Dose: 3 unit Lactulose (Lactulose) 20 gm PO DAILYPRN PRN PRN Reason: Constipation Magnesium Hydroxide (Milk Of Magnesium) 30 ml PO DAILYPRN PRN PRN Reason: Constipation Miscellaneous Medication (Pharmacy To Dose) 1 each IVPB PRN PRN PRN Reason: Pharmacy to dose Hold Vancomycin For (Level >20) 0 each FS .AT DIALYSIS [facility] Ondansetron HCl (Zofran) 4 mg IVP Q6H PRN PRN Reason: Nausea/Vomiting Ondansetron HCl (Zofran Odt) 4 mg PO Q6H PRN PRN Reason: Nausea/Vomiting Ropinirole HCl (Requip) 2 mg PO HS PRN PRN Reason: RESTLESSNESS Sodium Chloride (Flush - Normal Saline) 10 ml IVF Q12HR [facility] Last Admin: 12/03/17 09:36 Dose: Not Given Sodium Chloride (Flush - Normal Saline) 10 ml IVF PRN PRN PRN Reason: Saline Flush Tramadol HCl (Ultram) 50 mg PO Q4H PRN PRN Reason: Pain
[2017-12-03] MEDS: Carvedilol 6.25 MG TAB PO SCH (21:49)
[2017-12-03] MEDS: Gabapentin 100 MG CAP PO SCH (21:50)
[2017-12-03] MEDS: Insulin NPH/Reg Insulin Hm 300 UNITS/3 ML VIAL SC SCH (21:51)
[2017-12-04 05:57] LABS: #Basophils 0.1 thou/uL (0.0-0.2); #Eosinphils 0.3 thou/uL (0.0-0.7); #Lymphocytes 1.8 thou/uL (1.20-3.40); #Monocytes 0.6 thou/uL (0.11-0.59); #Neutrophils 4.4 thou/uL (1.40-6.50); %Eosinophils 4.7 % (0.0-10.0); %Lymphocytes 25.4 % (21.0-51.0); %Monocytes 7.9 % (0.0-10.0); %Neutrophils 61.1 % (42.0-75.0); Hemoglobin 8.6 g/dL (12.0-16.0); Mean Corpuscular HGB CONC 34.5 g/dL (32.0-36.0); Mean Corpuscular Hemoglobin 30.6 pg (27.0-31.0); Mean Corpuscular Volume 88.7 fl (81.0-99.0); Mean Platelet Volume 7.7 fL (7.4-10.4); Platelet Count 255 thou/uL (130-400); RBC Distribution Width 13.1 % (11.5-14.5); Red Blood Cell (RBC) Count 2.82 mill/uL (4.20-5.40); White Blood Cell (WBC) Count 7.1 thou/uL (4.8-10.8)
[2017-12-04 06:29] LABS: Anion Gap 13 mmol/L (10-20); BUN (Urea Nitrogen) 54 mg/dL (9.8-20.1); Calc. Creatinine Clearance 15 mL/min (70-130); Calcium 7.7 mg/dL (7.8-10.44); Carbon Dioxide 24 mmol/L (23-31); Chloride 94 mmol/L (98-107); Estimated GFR-MDRD 10; Glucose 240 mg/dL (80-115); Potassium 4.6 mmol/L (3.5-5.1); Sodium 126 mmol/L (136-145)
[2017-12-04] MEDS: HumaLOG 300 UNITS/3 ML VIAL SC PRN ×3 (07:00→22:55)
[2017-12-04] MEDS: Heparin 5,000 UNITS/ML VIAL SC SCH ×3 (09:29→22:43)
[2017-12-04] MEDS: hydrALAZINE 25 MG TAB PO SCH ×2 (09:29→22:21)
[2017-12-04] MEDS: Amlodipine 10 MG TAB PO SCH (09:30)
[2017-12-04] MEDS: Carvedilol 6.25 MG TAB PO SCH ×2 (09:30→22:18)
[2017-12-04] MEDS: Atorvastatin Calcium 40 MG TAB PO SCH (09:30)
[2017-12-04] MEDS: cloNIDine 0.1 MG TAB PO SCH ×2 (09:30→22:21)
--- NOTE | 2017-12-04 09:56 | PRG ---
DATE OF SERVICE: 12/04/2017 SUBJECTIVE: This 62-year-old female being seen for end-stage renal disease. Patient denies any naus ea, vomiting or chest pain. PHYSICAL EXAMINATION: GENERAL: Patient is awake, alert. VITAL SIGNS: Afebrile, pulse 75, breathing 16, blood pressure 129/67. OBJECTIVE: See above. Awake, alert, in no acute distress. GENERAL APPEARANCE AND MENTAL STATUS: Fair. HEAD/NECK: Normocephalic. Atraumatic. EYES: EOMI. No deformity. EARS: Clear. No ulcers. NOSE: Intact. No lesions. MOUTH: Clear. No discharge. THROAT: Clear. No exudate. LUNGS: Clear. No crackles. CARDIAC: S1, S2. No rub. ABDOMEN: Benign. BS+. GENITALIA/RECTUM: Martin absent. BACK/EXTREMITIES: Edema 0+ Ulcer- NEUROLOGICAL: Alert and motor intact. SKIN: Rash- Bruise- LYMPHATICS: Edema- Ulcer- LABORATORY: Hemoglobin 8.9. ASSESSMENT AND RECOMMENDATIONS: 1. Stage 6 chronic kidney disease. We will plan dialysis Friday, Friday, and Friday. 2. Hypertension, stable. 3. Anemia, stable. 4. Medications based on glomerular filtration rate are appropriate. 5. Discharge planning is in progress. 6. Access, the patient will have a tunneled catheter tomorrow, so we will skip dialysis today and co nsider dialysis tomorrow. Please note the patient is on dialysis Tuesdays, , and Saturdays.
--- NOTE | 2017-12-04 12:31 | PDOC.PN ---
- Subjective Encounter Start Date: 12/04/17 Encounter Start Time: 08:20 Pt seen for followup re: bacteremia. Feels well, denies chest pain, shortness of breath, fevers or chills. - Objective MAR Reviewed: Yes Vital Signs & Weight: Vital Signs (12 hours) Temp Pulse Resp BP BP BP Pulse Ox 12/04/17 09:30 98.3 F 65 16 153/65 H 12/04/17 09:29 65 154/71 H 12/04/17 07:38 98.3 F 65 16 154/71 H 98 12/04/17 04:25 98.1 F 71 15 148/66 H 94 L Weight Admit Weight 140 lb 2 oz Weight 158 lb 14.4 oz I&O: 12/03/17 12/04/17 12/05/17 06:59 06:59 06:59 Intake Total 854 250 240 Output Total 1 Balance 854 250 239 Result Diagrams: 12/04/17 05:15 12/04/17 05:15 Additional Labs: Accuchecks 12/04/17 12/04/17 12/03/17 11:11 05:39 20:59 POC Glucose 216 H 241 H 240 H 12/03/17 12/02/17 12/02/17 17:34 17:04 11:06 POC Glucose 123 H 272 H 230 H Phys Exam - Physical Examination Constitutional: NAD HEENT: moist MMs Neck: supple Respiratory: clear to auscultation bilateral Cardiovascular: RRR Gastrointestinal: soft Neurological: moves all 4 limbs Psychiatric: normal affect Dx/Plan (1) MRSA bacteremia Code(s): R78.81 - BACTEREMIA Status: Acute Comment: On vancomycin (2) PNA (pneumonia) Code(s): J18.9 - PNEUMONIA, UNSPECIFIED ORGANISM Status: Acute Qualifiers: Pneumonia type: due to methicillin-resistant Staphylococcus aureus (MRSA) Laterality: left Lung location: upper lobe of lung Qualified Code(s): J15.212 - Pneumonia due to Methicillin resistant Staphylococcus aureus Comment: On vancomycin (3) DM type 2 (diabetes mellitus, type 2) Status: Chronic Qualifiers: Diabetes mellitus mcc insulin use: with mcc use Diabetes mellitus complication status: with kidney complications Diabetes mellitus complication detail: with chronic kidney disease Chronic kidney disease stage : on chronic dialysis Qualified Code(s): E11.22 - Type 2 diabetes mellitus with diabetic chronic kidney disease; N18.6 - End stage renal disease; Z99.2 - Dependence on renal dialysis; Z99.2 - Dependence on renal dialysis; Z99.2 - Dependence on renal dialysis; N18.6 - End stage renal disease; N18.6 - End stage renal disease; N18.6 - End stage renal disease; Z79.4 - middle or intermediate school principal (current ) use of insulin; Z79.4 - skilled nursing (current) use of insulin; Z79.4 - skilled nursing (current) use of insulin; Z79.4 - middle or intermediate school principal (current) use of insulin; Z99.2 - Dependence on renal dialysis Comment: On accuchecks, insulin sliding scale (4) Dyslipidemia Code(s): E78.5 - HYPERLIPIDEMIA, UNSPECIFIED Status: Chronic (5) ESRD (end stage renal disease) on dialysis Code(s): N18.6 - END STAGE RENAL DISEASE; Z99.2 - DEPENDENCE ON RENAL DIALYSIS Status: Chronic Comment: Nephrology following (6) GERD (gastroesophageal reflux disease) Code(s): K21.9 - GASTRO-ESOPHAGEAL REFLUX DISEASE WITHOUT ESOPHAGITIS Status: Chronic Qualifiers: Esophagitis presence: esophagitis presence not specified Qualified Code(s) : K21.9 - Gastro-esophageal reflux disease without esophagitis (7) HTN (hypertension) Code(s): I10 - ESSENTIAL (PRIMARY) HYPERTENSION Status: Chronic Qualifiers: Hypertension type: essential hypertension Comment: titrate antihypertensives as needed - Plan * . For fistulogram tomorrow Review of Systems - Review of Systems Constitutional: negative: fever, chills, sweats, weakness, malaise Respiratory: negative: Cough, Dry, Shortness of Breath, Hemoptysis, SOB with Excertion, Pleuritic Pain, Sputum, Wheezing - Medications/Allergies Allergies/Adverse Reactions: Allergies Allergy/AdvReac Type Severity Reaction Status Date / Time No Known Allergies Allergy Verified 11/28/17 05:44 Medications: Current Medications Acetaminophen (Tylenol) 650 mg [place] Q6H PRN PRN Reason: Headache/Fever or Pain Last Admin: 11/27/17 21:39 Dose: 650 mg Acetaminophen (Tylenol) 650 mg PO Q4H PRN PRN Reason: Headache/Fever or Pain Albuterol Sulfate (Ventolin) 2.5 mg NEB [id number] PRN PRN Reason: Wheezing Amlodipine Besylate (Norvasc) 10 mg PO DAILY [facility] Last Admin: 12/04/17 09:30 Dose: 10 mg Aspirin (Aspirin Chewable) 81 mg PO DAILY [facility] Last Admin: 12/04/17 09:30 Dose: 81 mg Atorvastatin Calcium (Lipitor) 40 mg PO DAILY [facility] Last Admin: 12/04/17 09:30 Dose: 40 mg Carvedilol (Coreg) 6.25 mg PO BID [facility] Last Admin: 12/04/17 09:30 Dose: 6.25 mg Clonidine (Catapres) 0.1 mg PO Q4H PRN PRN Reason: Systolic BP > 180 Clonidine (Catapres) 0.1 mg PO BID [facility] Last Admin: 12/04/17 09:30 Dose: 0.1 mg Dextrose/Water (Dextrose 50%) 25 gm IVP PRN PRN PRN Reason: HYPOGLYCEMIA PROTOCOL Epoetin Khanh (Procrit) 10,000 units SC Q7D [facility] Last Admin: 12/03/17 11:14 Dose: 10,000 units Gabapentin (Neurontin) 200 mg PO HS [facility] Last Admin: 12/03/17 21:50 Dose: 200 mg Glucagon (Glucagon) 1 mg IM PRN PRN PRN Reason: HYPOGLYCEMIA PROTOCOL Heparin Sodium (Porcine) (Heparin) 5,000 units SC TID [facility] Last Admin: 12/04/17 09:29 Dose: 5,000 units Hydralazine HCl (Apresoline) 10 mg SLOW IVP Q4H PRN PRN Reason: SBP Greater Than 180 Last Admin: 11/29/17 05:56 Dose: 10 mg Hydralazine HCl (Apresoline) 25 mg PO BID [facility] Last Admin: 12/04/17 09:29 Dose: 25 mg Dextrose/Water (D5w) 1,000 mls @ 0 mls/hr IV INF PRN; As Directed PRN Reason: HYPOGLYCEMIA PROTOCOL Vancomycin HCl 1.25 gm/ Sodium (Chloride) 250 mls @ 166.667 mls/hr IVPB [facility]CALL [facility] Vancomycin HCl 1 gm/ Device 200 mls @ 200 mls/hr IVPB [facility]CALL [facility] Vancomycin HCl 750 mg/ Sodium (Chloride) 250 mls @ 250 mls/hr IVPB [facility] Vancomycin HCl 500 mg/ Sodium (Chloride) 100 mls @ 100 mls/hr IVPB [facility] Insulin Human Isoph/Insulin Regular (Humulin 70/30) 10 units SC HS [facility] Last Admin: 12/03/17 21:51 Dose: 10 unit Insulin Human Lispro (Humalog) 0 units SC .MILD SLIDING SCALE PRN; Protocol PRN Reason: MILD SLIDING SCALE Last Admin: 12/04/17 07:00 Dose: 3 unit Insulin Human Lispro (Humalog) 0 units SC .BEDTIME SLIDING SC PRN; Protocol PRN Reason: BEDTIME SLIDING SCALE Last Admin: 12/03/17 00:59 Dose: 3 unit Lactulose (Lactulose) 20 gm PO DAILYPRN PRN PRN Reason: Constipation Magnesium Hydroxide (Milk Of Magnesium) 30 ml PO DAILYPRN PRN PRN Reason: Constipation Miscellaneous Medication (Pharmacy To Dose) 1 each IVPB PRN PRN PRN Reason: Pharmacy to dose Hold Vancomycin For (Level >20) 0 each FS .AT DIALYSIS [facility] Ondansetron HCl (Zofran) 4 mg IVP Q6H PRN PRN Reason: Nausea/Vomiting Ondansetron HCl (Zofran Odt) 4 mg PO Q6H PRN PRN Reason: Nausea/Vomiting Ropinirole HCl (Requip) 2 mg PO HS PRN PRN Reason: RESTLESSNESS Sodium Chloride (Flush - Normal Saline) 10 ml IVF Q12HR [facility] Last Admin: 12/04/17 09:31 Dose: Not Given Sodium Chloride (Flush - Normal Saline) 10 ml IVF PRN PRN PRN Reason: Saline Flush Tramadol HCl (Ultram) 50 mg PO Q4H PRN PRN Reason: Pain
--- NOTE | 2017-12-04 19:35 | PRG ---
DATE OF SERVICE: 12/04/2017 Ms. Feng doing well today. Dialysis access postponed due to lack of OR time. Plan placement of h emodialysis catheter and basilic vein transposition fistula tomorrow. The patient will be discharged from postoperatively. If ready from a medical standpoint, these procedures described are done as an outpatient usually. She once discharged home, she can follow up in my office in 2 weeks to have her oscar removed from her arm. N.p.o. after midnight and dialysis access in the morning.
[2017-12-04] MEDS: Gabapentin 100 MG CAP PO SCH (22:23)
[2017-12-04] MEDS: Insulin NPH/Reg Insulin Hm 300 UNITS/3 ML VIAL SC SCH (22:43)
[2017-12-05 05:30] LABS: #Eosinphils 0.3 thou/uL (0.0-0.7); #Lymphocytes 2.3 thou/uL (1.20-3.40); #Monocytes 0.6 thou/uL (0.11-0.59); #Neutrophils 4.1 thou/uL (1.40-6.50); %Basophils 0.6 % (0.0-1.0); %Eosinophils 4.6 % (0.0-10.0); %Lymphocytes 31.4 % (21.0-51.0); %Monocytes 7.7 % (0.0-10.0); %Neutrophils 55.7 % (42.0-75.0); Hemoglobin 7.9 g/dL (12.0-16.0); Mean Corpuscular HGB CONC 33.2 g/dL (32.0-36.0); Mean Corpuscular Hemoglobin 28.5 pg (27.0-31.0); Mean Corpuscular Volume 85.9 fl (81.0-99.0); Mean Platelet Volume 6.9 fL (7.4-10.4); Platelet Count 306 thou/uL (130-400); RBC Distribution Width 13.3 % (11.5-14.5); Red Blood Cell (RBC) Count 2.78 mill/uL (4.20-5.40); White Blood Cell (WBC) Count 7.4 thou/uL (4.8-10.8)
[2017-12-05 05:48] LABS: Anion Gap 13 mmol/L (10-20); BUN (Urea Nitrogen) 63 mg/dL (9.8-20.1); Calc. Creatinine Clearance 15 mL/min (70-130); Calcium 7.5 mg/dL (7.8-10.44); Carbon Dioxide 24 mmol/L (23-31); Chloride 94 mmol/L (98-107); Estimated GFR-MDRD 10; Glucose 186 mg/dL (80-115); Potassium 4.6 mmol/L (3.5-5.1); Sodium 126 mmol/L (136-145)
[2017-12-05] MEDS ORDERED: Protamine Sulfate 50 MG/5 ML VIAL ONE (06:26)
[2017-12-05] MEDS ORDERED: Heparin 5,000 UNITS/ML VIAL ONE (06:26)
[2017-12-05] MEDS ORDERED: Bupivacaine HCl 0.5%/Epinephrine 1:200,000/PF 30 ml Vial ONE ×2 (06:26→07:43)
[2017-12-05] MEDS ORDERED: Lidocaine 2% 10 ML INJ ONE (06:26)
[2017-12-05] MEDS ORDERED: HYDROmorphone 0.5 MG/0.5 ML SYRINGE ONE (07:13)
[2017-12-05] MEDS ORDERED: Fentanyl 100 MCG/2 ML VIAL ONE ×2 (07:13→11:38)
[2017-12-05] MEDS ORDERED: Propofol 500 MG/50 ML VIAL ONE (07:13)
[2017-12-05] MEDS ORDERED: Ketamine 50 MG/ML VIAL ONE (07:13)
[2017-12-05] MEDS ORDERED: Midazolam HCl 2 mg/2 ml Vial ONE (07:14)
[2017-12-05] MEDS ORDERED: Sodium Chloride 0.9% 10 ML ONE (07:43)
[2017-12-05] MEDS ORDERED: Heparin 10,000 UNITS/1 ML VIAL ONE (07:43)
[2017-12-05] MEDS ORDERED: Sodium Chloride 0.9% 20 ML ONE (10:51)
[2017-12-05] MEDS ORDERED: Heparin 1,000 UNITS/ML VIAL ONE (11:11)
[2017-12-05] MEDS ORDERED: Promethazine HCl 25 MG/ML VIAL IM PRN (11:16)
[2017-12-05] MEDS ORDERED: Ondansetron HCl/PF 4 MG/2 ML Vial IVP PRN (11:16)
[2017-12-05] MEDS ORDERED: Promethazine HCl 25 MG/ML VIAL SLOW IVP PRN (11:16)
[2017-12-05] MEDS ORDERED: traMADol HCl 50 MG TAB PO PRN ×2 (11:24)
[2017-12-05] MEDS ORDERED: Acetaminophen 500 MG TAB PO PRN (11:25)
--- NOTE | 2017-12-05 11:48 | RAD ---
CHEST ONE VIEW: Comparison: 11-27-17 History: Central line placement. FINDINGS: Interval placement of a left sided internal jugular central venous catheter with the distal tip proje cting over the right atrium. There is no pneumothorax. Stable right sided HemoSplit dialysis catheter . Interval increased opacification of the medial aspect of the right upper lobe. Focal infiltrate is suspected given acuity of development of finding. Lung volumes are diminished. Chronic changes in the osseous structures. Surgical clips in the right axilla. IMPRESSION: 1. Increased opacification right paratracheal region which is presumed to represent an area of atelec tasis. Continued surveillance is recommended. 2. Central venous catheter as defined above. No pneumothorax. POS: [facility]
--- NOTE | 2017-12-05 11:58 | PRG ---
DATE OF SERVICE: 12/05/2017 SUBJECTIVE: This is a 62-year-old female being seen for end-stage renal disease. The patient denies any nausea, vomiting or chest pain. PHYSICAL EXAMINATION: GENERAL: Patient is awake, alert. VITAL SIGNS: Afebrile, pulse 62, breathing 16, blood pressure 121/67. OBJECTIVE: See above. Awake, alert, in no acute distress. GENERAL APPEARANCE AND MENTAL STATUS: Fair. HEAD/NECK: Normocephalic. Atraumatic. EYES: EOMI. No deformity. EARS: Clear. No ulcers. NOSE: Intact. No lesions. MOUTH: Clear. No discharge. THROAT: Clear. No exudate. LUNGS: Clear. No crackles. CARDIAC: S1, S2. No rub. ABDOMEN: Benign. BS+. GENITALIA/RECTUM: Martin absent. BACK/EXTREMITIES: Edema 0+ Ulcer- NEUROLOGICAL: Alert and motor intact. SKIN: Rash- Bruise- LYMPHATICS: Edema- Ulcer- LABORATORY: Hemoglobin 7.9. ASSESSMENT AND RECOMMENDATIONS: 1. Stage 6 chronic kidney disease. Continue dialysis. 2. Hypertension, stable. 3. Anemia, stable. 4. Medication based on glomerular filtration rate are appropriate. 5. Please see Dr. Alberts's input.
[2017-12-05] MEDS: Heparin 5,000 UNITS/ML VIAL SC SCH ×2 (12:47→14:34)
[2017-12-05] MEDS: hydrALAZINE 25 MG TAB PO SCH (12:58)
[2017-12-05] MEDS: Carvedilol 6.25 MG TAB PO SCH (12:58)
[2017-12-05] MEDS: cloNIDine 0.1 MG TAB PO SCH (12:58)
[2017-12-05] MEDS: Amlodipine 10 MG TAB PO SCH (13:21)
[2017-12-05] MEDS: Atorvastatin Calcium 40 MG TAB PO SCH (13:22)
[2017-12-05 13:52] LABS: Vancomycin, Trough 6.3 ug/mL
--- NOTE | 2017-12-05 14:54 | OP ---
DATE OF SERVICE: 12/05/2017 PREOPERATIVE DIAGNOSES: Poor IV access, end-stage renal disease, malfunction dialysis fistula upper arm, poor compliance in followup, occluded cephalic vein outflow due to open reduction internal fixat ion humeral fracture. POSTOPERATIVE DIAGNOSES: Poor IV access, end-stage renal disease, malfunction dialysis fistula upper arm, poor compliance in followup, occluded cephalic vein outflow due to open reduction internal fixa tion humeral fracture. PROCEDURE: Right IJ cuffed tunnel hemodialysis catheter, angiodynamics precurved. Left IJ central l ine triple lumen catheter due to poor IV access. Right arm basilic vein transposition fistula using the stump of the cephalic vein. SURGEON: Dr. Morris Alberts. ANESTHESIA: Regional TIVA. Local 0.5% Marcaine with epinephrine 30 mL mixed with Xylocaine, 10 mL PROCEDURE: The patient was taken to the operating room under intravenous sedation and regional right upper arm regional anesthesia. Neck, chest and right upper extremity repaired with ChloraPrep, drap ed in routine fashion. Local anesthetic infiltrated into the skin and subcutaneous tissue about the operative site for central line placement. Ultrasound used to cannulate the right and left internal jugular veins and J-wire threaded. Trocar catheter removed. Skin incised along sharply. Selinger t echnique on the left used to place a central line secured with 3-0 nylon suture and sterile dressing. Each port aspirated blood and flushed with saline solution. A stab incision made over the right ch est. Using the tunneling device, the precurved angiodynamics cuffed tunnel hemodialysis catheter malcolm neled between the two incisions, placing the fabric cuff beneath the skin exit site and catheter secu red with 2 interrupted sutures of 3-0 silk. Biopatch sterile dressing applied. Smaller medium size dilators placed over the J-wire into the internal jugular vein removed. Dilator and pull-away sheath placed over the J-wire in superior vena cava and dilator and J-wire removed. Catheter placed throug h pull-away sheath. Pull-away sheath removed. Platysma approximated with 4-0 Monocryl, skin with escobedo bdermal 4-0 Monocryl. DermaGlue and sterile dressings applied. Each port aspirated blood and flushe d with saline solution and heparinized saline solution 1000 units heparin per mL indicated volume of the port. Incision was made in the proximal volar forearm, carried down through the skin and subcutaneous tissu e across the antecubital fossa through the medial upper arm to the axilla. It was carried down throu gh the skin and subcutaneous tissue and deep fascia. Patient is morbidly obese. Vein dissected free . Branches divided between 4-0 and 3-0 silk ties and clips small and large. Vein mobilized, marked for orientation. Cephalic vein dissected free and was scarred and occluded in the distal third of th e upper arm. Patency maintained by some smaller collaterals which were divided between 4-0 silk ties and clips. A Anabel-Wiarlen tunneler used to create a tunnel in the anterior upper arm between the ante cubital fossa and the axilla using a 12 mm head. The patient was given 6000 units heparin intravenou sly. After adequate circulation time, the origin of the basilic vein clamped with vascular clamp, di vided and it was flushed with heparinized saline solution and noted to distend nicely. It was then c onnected to the tunneler and brought through the tunnel and it was flushed again assuring patency and absence of torsion. The stump of the basilic vein origin which had been clamped was ligated with 2 interrupted sutures of 6-0 Prolene. At this point, ends of basilic vein to cephalic vein anastomosis created after spatulating both accordingly and continuous suture of 6-0 Prolene used for the anastom osis, vascular clamps were released. There was excellent flow in the fistula. The patient was given 50 mg of protamine intravenously. Hemostasis gained with clips and cautery. Surgicel placed in the harvest bed. Subcutaneous tissues approximately 3-0 Monocryl, skin with oscar. Sterile dressing applied. Patient tolerated the procedure well.
[2017-12-05] MEDS ORDERED: ePHEDrine/0.9% NaCl/PF SYRINGE 50 mg/10 ml ONE (14:58)
[2017-12-05] MEDS ORDERED: Heparin 10,000 UNITS/ 10 ML VIAL ONE (14:58)
[2017-12-05 15:10] LABS: Hep B Surf Ag Non-Reactive S/CO (NonReactive)
--- NOTE | 2017-12-05 18:20 | PDOC.PN ---
- Subjective Encounter Start Date: 12/05/17 Encounter Start Time: 16:00 Pt seen for followup re: MRSA bacteremia. Denies chest pain, shortness of breath, fevers or chills. - Objective Vital Signs & Weight: Vital Signs (12 hours) Temp Pulse Resp BP BP Pulse Ox 12/05/17 13:21 62 159/75 H 12/05/17 12:58 62 159/75 H 12/05/17 12:29 98.2 F 62 16 94 L 12/05/17 12:15 97.3 F L 68 18 133/74 94 L Weight Admit Weight 140 lb 2 oz Weight 158 lb 14.4 oz I&O: 12/04/17 12/05/17 12/06/17 06:59 06:59 06:59 Intake Total 250 780 Output Total 1 Balance 250 779 Result Diagrams: 12/05/17 05:19 12/05/17 05:19 Additional Labs: Accuchecks 12/05/17 12/05/17 12/04/17 12:39 06:17 22:29 POC Glucose 177 H 173 H 372 H Phys Exam - Physical Examination Constitutional: NAD HEENT: moist MMs Neck: supple Respiratory: clear to auscultation bilateral Cardiovascular: RRR new tunneled dialysis catheter Gastrointestinal: soft Neurological: moves all 4 limbs Psychiatric: normal affect Skin: no rash Dx/Plan (1) MRSA bacteremia Code(s): R78.81 - BACTEREMIA Status: Acute Comment: Continue vancomycin (2) PNA (pneumonia) Code(s): J18.9 - PNEUMONIA, UNSPECIFIED ORGANISM Status: Acute Qualifiers: Pneumonia type: due to methicillin-resistant Staphylococcus aureus (MRSA) Laterality: left Lung location: upper lobe of lung Qualified Code(s): J15.212 - Pneumonia due to Methicillin resistant Staphylococcus aureus Comment: Continue vancomycin (3) DM type 2 (diabetes mellitus, type 2) Status: Chronic Qualifiers: 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: with 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 care use Diabetes mellitus complication status: with kidney complications Diabetes mellitus complication detail: with chronic kidney disease Chronic kidney disease stage : on chronic dialysis Qualified Code(s): E11.22 - Type 2 diabetes mellitus with diabetic chronic kidney disease; N18.6 - End stage renal disease; Z99.2 - Dependence on renal dialysis; Z99.2 - Dependence on renal dialysis; Z99.2 - Dependence on renal dialysis; N18.6 - End stage renal disease; N18.6 - End stage renal disease; N18.6 - End stage renal disease; Z79.4 - skilled nursing (current ) use of insulin; Z79.4 - skilled nursing (current) use of insulin; Z79.4 - skilled nursing (current) use of insulin; 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; Z99.2 - Dependence on renal dialysis Comment: Continue accuchecks, insulin sliding scale (4) Dyslipidemia Code(s): E78.5 - HYPERLIPIDEMIA, UNSPECIFIED Status: Chronic (5) ESRD (end stage renal disease) on dialysis Code(s): N18.6 - END STAGE RENAL DISEASE; Z99.2 - DEPENDENCE ON RENAL DIALYSIS Status: Chronic Comment: Nephrology following (6) GERD (gastroesophageal reflux disease) Code(s): K21.9 - GASTRO-ESOPHAGEAL REFLUX DISEASE WITHOUT ESOPHAGITIS Status: Chronic Qualifiers: Esophagitis presence: esophagitis presence not specified Qualified Code(s) : K21.9 - Gastro-esophageal reflux disease without esophagitis (7) HTN (hypertension) Code(s): I10 - ESSENTIAL (PRIMARY) HYPERTENSION Status: Chronic Qualifiers: Hypertension type: essential hypertension Comment: titrate antihypertensives as needed - Plan * . Likely home later today if oxygenating well, or tomorrow. Pt needs vancomycin until January 03. Discharge summary dictated in case pt gets discharged. Review of Systems - Review of Systems Respiratory: negative: Cough, Dry, Shortness of Breath, Hemoptysis, SOB with Excertion, Pleuritic Pain, Sputum, Wheezing Cardiovascular: negative: chest pain, palpitations, orthopnea, paroxysmal nocturnal dyspnea, edema, light headedness - Medications/Allergies Allergies/Adverse Reactions: Allergies Allergy/AdvReac Type Severity Reaction Status Date / Time No Known Allergies Allergy Verified 11/28/17 05:44 Medications: Current Medications Acetaminophen (Tylenol) 1,000 mg PO Q6H PRN PRN Reason: Moderate to Severe Pain (6-10) Albuterol Sulfate (Ventolin) 2.5 mg NEB [id number] PRN PRN Reason: Wheezing Amlodipine Besylate (Norvasc) 10 mg PO DAILY [facility] [place] Last Admin: 12/05/17 13:21 Dose: Not Given Aspirin (Aspirin Chewable) 81 mg PO DAILY [facility] [place] Last Admin: 12/05/17 13:21 Dose: Not Given Atorvastatin Calcium (Lipitor) 40 mg PO DAILY [facility] [place] Last Admin: 12/05/17 13:22 Dose: Not Given Carvedilol (Coreg) 6.25 mg PO BID [facility] [place] Last Admin: 12/05/17 12:58 Dose: Not Given Clonidine (Catapres) 0.1 mg PO Q4H PRN PRN Reason: Systolic BP > 180 Clonidine (Catapres) 0.1 mg PO BID [facility] [place] Last Admin: 12/05/17 12:58 Dose: Not Given Dextrose/Water (Dextrose 50%) 25 gm IVP PRN PRN PRN Reason: HYPOGLYCEMIA PROTOCOL Epoetin Khanh (Procrit) 10,000 units SC Q7D [facility] [place] Last Admin: 12/03/17 11:14 Dose: 10,000 units Gabapentin (Neurontin) 200 mg PO [facility] Last Admin: 12/04/17 22:23 Dose: 200 mg Glucagon (Glucagon) 1 mg IM PRN PRN PRN Reason: HYPOGLYCEMIA PROTOCOL Heparin Sodium (Porcine) (Heparin) 5,000 units SC TID [facility] [place] Last Admin: 12/05/17 14:34 Dose: Not Given Hydralazine HCl (Apresoline) 10 mg SLOW IVP Q4H PRN PRN Reason: SBP Greater Than 180 Last Admin: 11/29/17 05:56 Dose: 10 mg Hydralazine HCl (Apresoline) 25 mg PO BID [facility] [place] Last Admin: 12/05/17 12:58 Dose: Not Given Dextrose/Water (D5w) 1,000 mls @ 0 mls/hr IV INF PRN; As Directed PRN Reason: HYPOGLYCEMIA PROTOCOL Vancomycin HCl 1.25 gm/ Sodium (Chloride) 250 mls @ 166.667 mls/hr IVPB WILLCALL [facility] Vancomycin HCl 1 gm/ Device 200 mls @ 200 mls/hr IVPB WILLCALL [facility] Last Admin: 12/05/17 17:47 Dose: 200 mls Vancomycin HCl 750 mg/ Sodium (Chloride) 250 mls @ 250 mls/hr IVPB WILLCALL [facility] [place] Vancomycin HCl 500 mg/ Sodium (Chloride) 100 mls @ 100 mls/hr IVPB [facility] Insulin Human Isoph/Insulin Regular (Humulin 70/30) 10 units SC [facility] Last Admin: 12/04/17 22:43 Dose: 10 unit Insulin Human Lispro (Humalog) 0 units SC .MILD SLIDING SCALE PRN; Protocol PRN Reason: MILD SLIDING SCALE Last Admin: 12/04/17 15:49 Dose: 4 unit Insulin Human Lispro (Humalog) 0 units SC .BEDTIME SLIDING SC PRN; Protocol PRN Reason: BEDTIME SLIDING SCALE Last Admin: 12/04/17 22:55 Dose: 5 unit Lactulose (Lactulose) 20 gm PO DAILYPRN PRN PRN Reason: Constipation Magnesium Hydroxide (Milk Of Magnesium) 30 ml PO DAILYPRN PRN PRN Reason: Constipation Miscellaneous Medication (Pharmacy To Dose) 1 each IVPB PRN PRN PRN Reason: Pharmacy to dose Hold Vancomycin For (Level >20) 0 each FS .AT DIALYSIS [facility] [place] Ondansetron HCl (Zofran) 4 mg IVP Q6H PRN PRN Reason: Nausea/Vomiting Ondansetron HCl (Zofran Odt) 4 mg PO Q6H PRN PRN Reason: Nausea/Vomiting Ropinirole HCl (Requip) 2 mg PO HS PRN PRN Reason: RESTLESSNESS Sodium Chloride (Flush - Normal Saline) 10 ml IVF Q12HR [facility] [place] Last Admin: 12/05/17 12:47 Dose: Not Given Sodium Chloride (Flush - Normal Saline) 10 ml IVF PRN PRN PRN Reason: Saline Flush Tramadol HCl (Ultram) 50 mg PO Q6H PRN PRN Reason: Pain 1ST LINE Tramadol HCl (Ultram) 100 mg PO Q6H PRN PRN Reason: Pain 2ND LINE Last Admin: 12/05/17 13:21 Dose: 100 mg
[2017-12-05 19:37] VITALS: BP 145/71; TEMP 97.5
--- NOTE | 2017-12-05 20:27 | DIS ---
PRIMARY CARE PROVIDER: [facility] in [place]. DATE OF ADMISSION: 11/27/2017 DATE OF DISCHARGE: 12/05/2017 DISCHARGE DIAGNOSES: 1. Methicillin-resistant Staphylococcus aureus bacteremia. 2. Left upper lobe pneumonia. 3. Sepsis due to pneumonia. 4. Acute encephalopathy. CONDITION OF PATIENT ON THE DAY OF DISCHARGE: Stable. I assessed Ms. Feng on the day of discharg e. She denies any chest pain or shortness of breath. She is saturating 94% on 2 liters of oxygen by nasal cannula prior to dialysis, the patient will be weaned off of oxygen prior to discharge. Other ward, vital signs are stable. S1 and S2 are heard, regular. Lungs are clear to auscultation bilater ally. CONSULTATIONS DURING THIS HOSPITALIZATION: Nephrology, Dr. Avalos; General Surgery, Dr. Morris cates and Infectious Diseases, Dr. Rodriguez. PROCEDURES DURING THIS HOSPITALIZATION: 1. On 12/02/2017, the patient underwent removal of right IJ cuffed tunnel hemodialysis catheter. 2. On 12/05/2017, the patient underwent placement of right IJ cuffed tunnel hemodialysis catheter, l eft IJ central line triple lumen catheter and right arm basilic vein transposition fistula using the stump of the cephalic vein. DISCHARGE MEDICATIONS: She has been started on vancomycin by sliding scale with dialysis. Vancomyci n to continue until 01/03. Otherwise, her home medications were resumed as dictated on history and p hysical note from 11/27/2017. HOSPITAL COURSE: Ms. Feng is a pleasant 62-year-old lady who was admitted to [facility] on 11/27/2017 for sepsis secondary to pneumonia. She also had acute encephalopathy. S he was started on antibiotics. Encephalopathy, improved. Blood cultures grew MRSA. She was seen by Infectious Diseases and General Surgical Services. She underwent the procedures described above bec ause of suspected line sepsis. She was also seen by Nephrology for maintenance hemodialysis. She is being discharged home on IV vancomycin through sliding scale until 01/03, weekly CBC and CRP, repeat blood cultures in 2 weeks. She will follow up with Dr. Rodriguez in 3-4 weeks. She is also advised to follow up with Dr. Alberts in 2-3 weeks. She is also advised to have outpatient hemodialysis on 12/06. She is also advised to follow up with her primary care provider in 3-5 days. On the day of discharge, she has a white count of 7400, hemoglobin 7.9, platelet count 306,000, sodiu m 126, potassium 4.6, blood urea nitrogen 63 and creatinine 4.37. Many thanks for allowing me to participate in your patient's care. Please feel free to contact me wi th any questions or concerns. DISCHARGE DESTINATION: Home. TOTAL AMOUNT OF TIME SPENT COORDINATING THIS DISCHARGE: 35 minutes.
== END 2017-12-05 20:17 | disposition home or self-care (01) | DRG 853 ==
LOC: ERS 11:11 → 2NO 18:32 → SURG B 12-03 01:39
PROVIDERS: ADMIT Internal Medicine; ATTEND Internal Medicine
PROC: 5A1D70Z Performance of Urinary Filtration, Intermittent, Less than 6 Hours Per Day (ICD-10-PCS; 2017-11-27)
PROC: 02PY33Z Removal of Infusion Device from Great Vessel, Percutaneous Approach (ICD-10-PCS; principal; 2017-12-02)
PROC: 0JPT3XZ Removal of Tunneled Vascular Access Device from Trunk Subcutaneous Tissue and Fascia, Percutaneous Approach (ICD-10-PCS; 2017-12-02)
PROC: 05SB0ZZ Reposition Right Basilic Vein, Open Approach (ICD-10-PCS; 2017-12-05)
PROC: 02H633Z Insertion of Infusion Device into Right Atrium, Percutaneous Approach (ICD-10-PCS; 2017-12-05)
PROC: 0JH60XZ Insertion of Tunneled Vascular Access Device into Chest Subcutaneous Tissue and Fascia, Open Approach (ICD-10-PCS; 2017-12-05)
PROC: 02HV33Z Insertion of Infusion Device into Superior Vena Cava, Percutaneous Approach (ICD-10-PCS; 2017-12-05)
PROC: B548ZZA Ultrasonography of Superior Vena Cava, Guidance (ICD-10-PCS; 2017-12-05)
DX: N18.6 End stage renal disease; G93.40 Encephalopathy, unspecified; T82.868A Thrombosis due to vascular prosthetic devices, implants and grafts, initial encounter; K21.9 Gastro-esophageal reflux disease without esophagitis; E66.9 Obesity, unspecified; E78.5 Hyperlipidemia, unspecified; E11.22 Type 2 diabetes mellitus with diabetic chronic kidney disease; F17.210 Nicotine dependence, cigarettes, uncomplicated; A41.02 Sepsis due to Methicillin resistant Staphylococcus aureus; Z99.2 Dependence on renal dialysis; J15.212 Pneumonia due to Methicillin resistant Staphylococcus aureus; E11.21 Type 2 diabetes mellitus with diabetic nephropathy; T80.211A Bloodstream infection due to central venous catheter, initial encounter; I10 Essential (primary) hypertension; E87.6 Hypokalemia; J44.0 Chronic obstructive pulmonary disease with (acute) lower respiratory infection; D64.9 Anemia, unspecified
CPT/HCPCS: 36415; 36416; 51701; 71045; 80048; 80053; 80202; 81003; 81015; 82330; 82803; 82805; 83605; 85025; 86850; 86900; 86901; 87040; 87077; 87149; 87186; 87340; 90935; 93005; 96365; 96368; 96375; A4216; C1752; C1769; G0257; J0360; J0456; J0670; J0696; J1170; J1644; J2001; J2250; J2310; J2704; J2720; J2997; J3010; J3370; J7050; Q4081